=== PATIENT | female | born 1955 | race Caucasian/White ===

== ENCOUNTER 2020-06-28 08:20 | Outpatient (REF) | payer OTHER, SELFPAY ==
[2020-06-28 08:43] LABS: MANUAL DIFF FLAG NO
[2020-06-28 08:47] LABS: Basophils Absolute Auto 0.1 X10*3/uL (0.0-0.2); Eosinophils Absolute Auto 0.2 X10*3/uL (0.0-0.4); Eosinophils Percent Auto 2.2 % (0-4); Hematocrit 35.7 % (37-47); Hemoglobin 11.5 g/dl (12.0-16.0); Imm Gran Abs Auto 0.01 X10*3/uL (0.00-0.03); Imm Gran Pct Auto 0.1 % (0.0-0.4); Lymphocytes Absolute Auto 2.8 X10*3/uL (1.2-4.9); Lymphocytes Percent Auto 38.8 % (20-40); Mean Corpuscular HGB Conc 32.2 g/dl (31.0-35.0); Mean Corpuscular Hemoglobin 31.1 pg (27.0-33.0); Mean Corpuscular Volume 96.5 fL (80-98); Monocytes Absolute Auto 0.5 X10*3/uL (0.1-1.2); Monocytes Percent Auto 6.4 % (2-11); Neutrophils Absolute Auto 3.8 X10*3/uL (2.0-8.3); Neutrophils Percent Auto 51.5 % (45-73); Platelet Count 283 X10*3/uL (160-400); Red Cell Distribution Width 12.2 % (11.0-16.0); White Blood Count 7.3 X10*3/uL (4.8-10.8)
== END 2020-06-28 08:21 | disposition home or self-care (01) ==
LOC: HO.LAB 08:20
PROVIDERS: Referring Provider Psychiatry & Neurology Neurology; Visit Provider Family Medicine
DX: D64.9 Anemia, unspecified (principal)
CPT/HCPCS: 36415; 85025

== ENCOUNTER 2021-03-26 14:45 | Outpatient (REF) | payer OTHER, SELFPAY ==
--- NOTE | ~2021-03-26 | MM_ITS ---
EXAMINATION: MM SCREENING DIGITAL BREAST TOMOSYNTHESIS, BILATERAL CLINICAL INFORMATION: Screening. Asymptomatic. The lifetime risk of breast cancer based on the Tyrer-Cuzick Model is 9%. COMPARISON: Mammography: 03/20/2020, 03/15/2019, 02/18/2018 TECHNIQUE: Digital breast tomosynthesis is performed in both the craniocaudal and mediolateral oblique views along with computer-aided detection (CAD). Synthesized 2D images are generated from the tomosynthesis. Additional left CC and exaggerated left CC views are provided. FINDINGS: The breasts are heterogeneously dense, which may obscure small masses (ACR BI-RADS breast composition Category c). There are no significant masses, abnormal calcifications, or other abnormalities. Parenchymal pattern is similar to prior studies. Again, there is biopsy clip marker posterior 11:00 left breast. There is stable nodular asymmetry superior left breast on MLO view. No developing density. No significant changes. MM/MM tomosynthesis screening BI IMPRESSION: No mammographic evidence of malignancy. ASSESSMENT: BI-RADS 2: Benign RECOMMENDATION: Routine annual mammography screening. This patient's information was entered into a reminder system with a target due date for their next mammogram.
== END 2021-03-26 14:46 | disposition home or self-care (01) ==
LOC: HO.MAMMO 14:45
PROVIDERS: PCP Family Medicine; Visit Provider Family Medicine
DX: Z12.31 Encounter for screening mammogram for malignant neoplasm of breast (principal)
CPT/HCPCS: 77063; 77067

== ENCOUNTER 2021-05-22 16:46 | Outpatient (REF) | payer OTHER, SELFPAY ==
--- NOTE | ~2021-05-22 | XR_ITS ---
EXAMINATION: XR TOES, LEFT CLINICAL INFORMATION: Injury. Pain. History of trauma. COMPARISON: Left foot x-ray January 2018 TECHNIQUE: 3 views of the left toes were obtained. FINDINGS: There is a minimally displaced fracture of the medial aspect of the proximal phalanx of the great toe intra-articular with the IP joint. No other fracture is seen. There is severe arthritis at the first second third metatarsal tarsal joints with joint space narrowing and osteophyte formation. There is mild arthritis at the first MTP joint. Soft tissues are unremarkable. XR/XR toe LT min 2V IMPRESSION: Minimally displaced fracture of the proximal phalanx of the great toe intra-articular with the IP joint.
== END 2021-05-22 16:47 | disposition home or self-care (01) ==
LOC: HO.XRAY 16:46
PROVIDERS: PCP Family Medicine; Visit Provider Family Medicine
DX: S99.922D Unspecified injury of left foot, subsequent encounter (principal)
CPT/HCPCS: 73660

== ENCOUNTER 2022-04-03 11:40 | Outpatient (REF) | payer MEDICARE, SELFPAY ==
--- NOTE | ~2022-04-03 | MM_ITS ---
EXAMINATION: MM SCREENING DIGITAL BREAST TOMOSYNTHESIS, BILATERAL CLINICAL INFORMATION: Screening. Asymptomatic. The lifetime risk of breast cancer based on the Tyrer-Cuzick Model is 8%. COMPARISON: Mammography: 03/26/2021, 03/20/2020, 03/15/2019 TECHNIQUE: Digital breast tomosynthesis is performed in both the craniocaudal and mediolateral oblique views along with computer-aided detection (CAD). Synthesized 2D images are generated from the tomosynthesis. FINDINGS: The breasts are heterogeneously dense, which may obscure small masses (ACR BI-RADS breast composition Category c). There are no significant masses, abnormal calcifications, or other abnormalities. There is a biopsy clip marker again seen posterior central 9:00 left breast. There is no developing density or architectural abnormality. The axilla are unremarkable. No significant changes. MM/MM tomosynthesis screening BI IMPRESSION: No mammographic evidence of malignancy. ASSESSMENT: BI-RADS 1: Negative RECOMMENDATION: Routine annual mammography screening. This patient's information was entered into a reminder system with a target due date for their next mammogram.
== END 2022-04-03 11:41 | disposition home or self-care (01) ==
LOC: HO.MAMMO 11:40
PROVIDERS: Visit Provider Family Medicine
DX: Z12.31 Encounter for screening mammogram for malignant neoplasm of breast (principal)
CPT/HCPCS: 77063; 77067

== ENCOUNTER 2022-04-24 13:24 | Outpatient (REF) | payer MEDICARE, SELFPAY ==
[2022-04-24 14:38] LABS: Alanine Aminotransferase 21 U/L (0-31); Anion Gap 16 (12-20); Blood Urea Nitrogen 22 mg/dL (9-16); Carbon Dioxide 26 mmol/L (22-29); Chloride 104 mmol/L (96-108); Estimated Glomerular Filt Rate > 60; Potassium 4.1 mmol/L (3.3-5.1); Sodium 142 mmol/L (135-145)
[2022-04-24 14:58] LABS: Free T4 (Free Thyroxine) 0.82 ng/dL (0.71-1.85)
== END 2022-04-24 13:25 | disposition home or self-care (01) ==
LOC: HO.LAB 13:24
PROVIDERS: PCP Family Medicine; Visit Provider Family Medicine
DX: R00.0 Tachycardia, unspecified (principal); E78.00 Pure hypercholesterolemia, unspecified; Z79.899 Other long term (current) drug therapy
CPT/HCPCS: 36415; 80051; 82550; 82565; 84439; 84460; 84520

== ENCOUNTER → 2022-09-10 09:49 | Outpatient (BNVA) | payer MEDICARE, SELFPAY | PROVIDERS: PCP Family Medicine; Referring Provider Family Medicine; Visit Provider Surgery | DX: L81.9 Disorder of pigmentation, unspecified (principal) | CPT/HCPCS: 99202 ==

== ENCOUNTER 2022-10-06 12:51 | Outpatient (REF) | payer MEDICARE, SELFPAY | END 2022-10-06 12:52 | disposition home or self-care (01) | LOC: HO.LNP 12:51 | PROVIDERS: PCP Family Medicine; Visit Provider Surgery | DX: L82.1 Other seborrheic keratosis (principal); L81.9 Disorder of pigmentation, unspecified | CPT/HCPCS: 11421; 11422; 88304 ==

== ENCOUNTER → 2022-10-16 10:49 | Outpatient (BNVA) | payer MEDICARE, SELFPAY | PROVIDERS: PCP Family Medicine; Visit Provider Surgery ==

== ENCOUNTER 2022-10-30 11:00 | Outpatient (REF) | payer MEDICARE, SELFPAY ==
[2022-10-30 11:19] LABS: MANUAL DIFF FLAG NO
[2022-10-30 12:10] LABS: Basophils Absolute Auto 0.1 X10*3/uL (0.0-0.2); Basophils Percent Auto 0.9 % (0-2); Eosinophils Absolute Auto 0.1 X10*3/uL (0.0-0.4); Eosinophils Percent Auto 2.4 % (0-4); Hematocrit 37.3 % (37.0-47.0); Hemoglobin 12.4 g/dl (12.0-16.0); Imm Gran Abs Auto 0.01 X10*3/uL (0.00-0.03); Imm Gran Pct Auto 0.2 % (0.0-0.4); Lymphocytes Absolute Auto 2.1 X10*3/uL (1.2-4.9); Lymphocytes Percent Auto 39.5 % (20-40); Mean Corpuscular HGB Conc 33.2 g/dl (31.0-35.0); Mean Corpuscular Hemoglobin 31.1 pg (27.0-33.0); Mean Corpuscular Volume 93.5 fL (80.0-98.0); Mean Platelet Volume 9.9 fL (9.4-12.3); Monocytes Absolute Auto 0.5 X10*3/uL (0.1-1.2); Monocytes Percent Auto 9.3 % (2-11); Neutrophils Absolute Auto 2.6 x10*3/uL (2.0-8.3); Neutrophils Percent Auto 47.7 % (45-73); Platelet Count 248 X10*3/uL (160-400); Red Blood Count 3.99 X10*6/uL (4.20-5.50); Red Cell Distribution Width 11.6 % (11.0-16.0); White Blood Count 5.4 X10*3/uL (4.8-10.8)
[2022-10-30 13:00] LABS: Alanine Aminotransferase 19 U/L (0-31); Albumin Level 3.9 g/dL (3.5-5.0); Alkaline Phosphatase 48 U/L (39-117); Aspartate Amino Transferase 22 U/L (5-31); Bilirubin Direct < 0.2 mg/dL (0.0-0.5); Bilirubin Total 0.3 mg/dL (0.0-1.0); Total Protein 6.4 g/dL (6.5-8.0)
== END 2022-10-30 11:01 | disposition home or self-care (01) ==
LOC: HO.LAB 11:00
PROVIDERS: Internal Medicine; PCP Family Medicine; Visit Provider Psychiatry & Neurology Neurology
DX: R51.9 Headache, unspecified (principal)
CPT/HCPCS: 36415; 80076; 85025

== ENCOUNTER 2022-11-04 13:04 | Outpatient (REF) | payer MEDICARE, SELFPAY ==
[2022-11-04 14:08] LABS: Alanine Aminotransferase 21 U/L (0-31); Anion Gap 12 (12-20); Aspartate Amino Transferase 23 U/L (5-31); Blood Urea Nitrogen 13 mg/dL (9-16); Carbon Dioxide 28 mmol/L (22-29); Chloride 107 mmol/L (96-108); Estimated Glomerular Filt Rate > 60; Sodium 143 mmol/L (135-145)
== END 2022-11-04 13:05 | disposition home or self-care (01) ==
LOC: HO.LAB 13:04
PROVIDERS: PCP Family Medicine; Visit Provider Family Medicine
DX: I10 Essential (primary) hypertension (principal); E78.00 Pure hypercholesterolemia, unspecified; Z79.899 Other long term (current) drug therapy
CPT/HCPCS: 36415; 80051; 82550; 82565; 84450; 84460; 84520

== ENCOUNTER 2023-04-06 08:17 | Outpatient (REF) | payer MEDICARE, SELFPAY ==
--- NOTE | ~2023-04-06 | MM_ITS ---
EXAMINATION: MM SCREENING DIGITAL BREAST TOMOSYNTHESIS, BILATERAL CLINICAL INFORMATION: Screening. Asymptomatic. History of remote excisional left biopsy. COMPARISON: Mammography: 04/03/2022, 03/26/2021, 03/20/2020, 03/15/2019 TECHNIQUE: Digital breast tomosynthesis is performed in both the craniocaudal and mediolateral oblique views along with computer-aided detection (CAD). Synthesized 2D images are generated from the tomosynthesis. FINDINGS: The breasts are heterogeneously dense, which may obscure small masses (ACR BI-RADS breast composition Category c). Post benign biopsy clip noted in the medial posterior left breast. There are no suspicious masses, suspicious grouped calcifications, or areas of architectural distortion. The parenchymal pattern is stable from prior exams. MM/MM tomosynthesis screening BI IMPRESSION: No mammographic evidence of malignancy. ASSESSMENT: BI-RADS BI-RADS 1 - Negative RECOMMENDATION: Routine annual mammography screening. 1 year F/U This examination should not preclude the clinical evaluation of a suspicious palpable abnormality. This patient's information was entered into a reminder system with a target due date for their next mammogram.
== END 2023-04-06 08:18 | disposition home or self-care (01) ==
LOC: HO.MAMMO 08:17
PROVIDERS: PCP Family Medicine; Visit Provider Family Medicine
DX: Z12.31 Encounter for screening mammogram for malignant neoplasm of breast (principal)
CPT/HCPCS: 77063; 77067

== ENCOUNTER → 2023-04-06 08:30 | Outpatient (BNV) | payer MEDICARE, SELFPAY | PROVIDERS: PCP Family Medicine; Visit Provider Radiology Diagnostic Radiology | DX: Z12.31 Encounter for screening mammogram for malignant neoplasm of breast (principal) | CPT/HCPCS: 77063; 77067 ==

== ENCOUNTER 2023-09-27 09:32 | Outpatient (REF) | payer MEDICARE, SELFPAY ==
[2023-09-27 10:46] LABS: Alanine Aminotransferase 22 U/L (0-31); Anion Gap 12 (12-20); Aspartate Amino Transferase 26 U/L (5-31); Blood Urea Nitrogen 19 mg/dL (9-16); Carbon Dioxide 27 mmol/L (22-29); Chloride 106 mmol/L (96-108); Cholesterol 187 mg/dL (<200); Estimated Glomerular Filt Rate > 60; Potassium 4.1 mmol/L (3.3-5.1); Sodium 141 mmol/L (135-145)
== END 2023-09-27 09:33 | disposition home or self-care (01) ==
LOC: HO.LAB 09:32
PROVIDERS: PCP Family Medicine; Visit Provider Family Medicine
DX: I10 Essential (primary) hypertension (principal); E78.00 Pure hypercholesterolemia, unspecified; Z79.899 Other long term (current) drug therapy
CPT/HCPCS: 36415; 80051; 82465; 82550; 82565; 84450; 84460; 84520

== ENCOUNTER 2024-04-04 11:14 | Outpatient (REF) | payer MEDICARE, SELFPAY ==
[2024-04-04 14:02] LABS: Valproate 44.7 mcg/mL (50.0-100.0)
== END 2024-04-04 11:15 | disposition home or self-care (01) ==
LOC: HO.HMGCLDS 11:14
PROVIDERS: PCP Family Medicine; Visit Provider Family Medicine
DX: Z79.899 Other long term (current) drug therapy (principal)
CPT/HCPCS: 36415; 80164

== ENCOUNTER 2024-04-11 08:33 | Outpatient (REF) | payer MEDICARE, SELFPAY ==
--- NOTE | ~2024-04-11 | MM_ITS ---
EXAMINATION: MM SCREENING DIGITAL BREAST TOMOSYNTHESIS, BILATERAL CLINICAL INFORMATION: Screening. Asymptomatic. COMPARISON: Mammography: Comparison is made with available priors TECHNIQUE: Digital breast mammography with tomosynthesis is performed in both the craniocaudal and mediolateral oblique views along with computer-aided detection (CAD). FINDINGS: The breasts are heterogeneously dense, which may obscure small masses (ACR BI-RADS breast composition Category c). Left marker clip. There are no significant masses, abnormal calcifications, or other abnormalities. MM/MM tomosynthesis screening BI IMPRESSION: No mammographic evidence of malignancy. ASSESSMENT: BI-RADS BI-RADS 2 - Benign Findings RECOMMENDATION: Routine annual mammography screening. 1 year F/U This examination should not preclude the clinical evaluation of a suspicious palpable abnormality. This patient's information was entered into a reminder system with a target due date for their next mammogram. Electronically signed by: Angella Peralta DO 04/25/2024 09:21 AM EDT
== END 2024-04-11 08:34 | disposition home or self-care (01) ==
LOC: HO.MAMMO 08:33
PROVIDERS: PCP Family Medicine; Visit Provider Family Medicine
DX: Z12.31 Encounter for screening mammogram for malignant neoplasm of breast (principal)
CPT/HCPCS: 77063; 77067

== ENCOUNTER → 2024-04-11 08:45 | Outpatient (BNV) | payer MEDICARE, SELFPAY | PROVIDERS: PCP Family Medicine; Visit Provider Internal Medicine | DX: Z12.31 Encounter for screening mammogram for malignant neoplasm of breast (principal) | CPT/HCPCS: 77063; 77067 ==

== ENCOUNTER 2024-05-09 11:14 | Outpatient (REF) | payer MEDICARE, SELFPAY ==
[2024-05-09 13:20] LABS: MANUAL DIFF FLAG NO
[2024-05-09 13:46] LABS: Alanine Aminotransferase 17 U/L (0-31); Anion Gap 11 (12-20); Aspartate Amino Transferase 22 U/L (5-31); Blood Urea Nitrogen 14 mg/dL (9-16); Carbon Dioxide 29 mmol/L (22-29); Chloride 106 mmol/L (96-108); Estimated Glomerular Filt Rate > 60; Potassium 4.1 mmol/L (3.3-5.1); Sodium 142 mmol/L (135-145)
[2024-05-09 13:51] LABS: Basophils Absolute Auto 0.1 X10*3/uL (0.0-0.2); Basophils Percent Auto 0.9 % (0-2); Eosinophils Absolute Auto 0.1 X10*3/uL (0.0-0.4); Eosinophils Percent Auto 2.2 % (0-4); Hematocrit 35.7 % (37.0-47.0); Imm Gran Abs Auto 0.03 X10*3/uL (0.00-0.03); Imm Gran Pct Auto 0.6 % (0.0-0.4); Lymphocytes Absolute Auto 1.8 X10*3/uL (1.2-4.9); Lymphocytes Percent Auto 33.7 % (20-40); Mean Corpuscular HGB Conc 33.6 g/dl (31.0-35.0); Mean Corpuscular Volume 95.2 fL (80.0-98.0); Monocytes Absolute Auto 0.6 X10*3/uL (0.1-1.2); Monocytes Percent Auto 11.3 % (2-11); Neutrophils Absolute Auto 2.8 x10*3/uL (2.0-8.3); Neutrophils Percent Auto 51.3 % (45-73); Platelet Count 229 X10*3/uL (160-400); Red Blood Count 3.75 X10*6/uL (4.20-5.50); Red Cell Distribution Width 12.2 % (11.0-16.0); White Blood Count 5.4 X10*3/uL (4.8-10.8)
== END 2024-05-09 11:15 | disposition home or self-care (01) ==
LOC: HO.10HDL 11:14
PROVIDERS: Visit Provider Family Medicine
DX: E78.00 Pure hypercholesterolemia, unspecified (principal); I10 Essential (primary) hypertension; R00.0 Tachycardia, unspecified; Z79.899 Other long term (current) drug therapy
CPT/HCPCS: 36415; 80051; 82550; 82565; 84450; 84460; 84520; 85025

== ENCOUNTER 2024-08-19 13:59 | Emergency (ER) | payer MEDICARE, SELFPAY ==
--- NOTE | ~2024-08-19 | CT_ITS ---
CLINICAL HISTORY: bilateral flank pain, microscopic hematuria CT abdomen and pelvis without contrast Comparison: US - PELVIS ULTRASOUND [id number] - 08/30/18 16:24 EST Findings: Minimal right basilar subsegmental atelectasis present with minimal to mild left basilar subsegmental atelectasis versus infiltrates. The gallbladder and solid organs are within normal limits. Nonobstructing calculus present at the superior pole of the right kidney. No radiopaque left renal calculi are identified. No hydronephrosis or hydroureter. No bowel obstruction, pneumoperitoneum, or pneumatosis. Large stool burden identified at the ascending and transverse portions of the colon. Pelvic contents unremarkable. Bladder is minimally distended with fluid, limiting its evaluation. Normal appendix. Mild T10 compression deformity present. IMPRESSION: 1. No acute inflammatory process identified within the abdomen or pelvis. 2. Nonobstructing calculus present at the right kidney. No hydronephrosis or hydroureter. 3. Large stool burden present at the ascending and transverse portions of the colon. No bowel obstruction. 4. Mild T10 compression deformity present. This may be chronic in etiology based on its appearance, however clinical correlation is advised given the lack of comparison imaging. This document has been electronically signed by: Rizwan Oropeza MD on 08/19/2024 21:19:56
[2024-08-19 14:08] VITALS: BP 121/53; PULSE 99; RESP 19; TEMP 36.6; O2SAT 99; BMI 21.0
--- NOTE | 2024-08-19 15:32 | ED_ITS ---
HPI - Back Pain/Injury General Chief Complaint: Back Pain/Injury Stated Complaint: back pain Time Seen by Provider: 08/19/24 15:19 Source: patient Mode of arrival: ambulatory Limitations: no limitations History of Present Illness ED Provider: Araseli Crespo NP HPI Narrative: Patient is a 69-year-old female who presents emergency department for evaluation. She reports 3 days ago she was walking up the stairs when she felt sudden onset of pain to the bilateral flanks radiating into the abdomen. She reports the pain has been quite constant since its onset with not much varying in its intensity. Pain is exacerbated with particular movements and while side- lying. Denies recent precipitating injury, fevers, chills, burning with micturition, urinary frequency/urgency/hesitancy, bladder or bowel dysfunction, numbness or tingling of the perineum or bilateral legs. Denies any recent surgical procedures, any known immune compromising conditions, personal history of cancer, or IV drug usage. MD elicited complaint: back pain Related Data Home Medications ?Medication ?Instructions ?Recorded ?Confirmed amitriptyline 100 mg tablet 100 mg PO BEDTIME 09/10/22 10/06/22 atorvastatin 40 mg tablet 40 mg PO BEDTIME 09/10/22 10/06/22 divalproex 500 mg tablet,delayed 500 mg PO BEDTIME 09/10/22 10/06/22 release metoprolol succinate 25 mg 25 mg PO BEDTIME 09/10/22 10/06/22 tablet,extended release 24 hr Previous Rx's ?Medication ?Instructions ?Recorded meloxicam 15 mg tablet 15 mg PO DAILY #7 tabs 08/19/24 Allergies Allergy/AdvReac Type Severity Reaction Status Date / Time No Known Allergies Allergy Verified 08/19/24 14:09 [No Known Allergies*] Review of Systems 2 Review of Systems: Yes all other systems are reviewed and are negative PMFSH Past Medical History Attestation statement: The following information was validated with the patient. Source: old records reviewed Medical History History of inguinal hernia Surgical History History of breast lump/mass excision (10/06/22) History of repair of right rotator cuff (2003) History of breast biopsy (2005) History of section (1989) Family History Family History Father Non-Hodgkin lymphoma Social History Social History Alcohol intake: never Patient Tobacco Use Status: Never used Tobacco Advance Directives: No Advance Directives Information Provided: Yes Do you have a plan to hurt others: No Plan Physical Exam 2 Vital Signs: Vital Signs: Last Vital Signs Temp 97.8 F 08/19/24 19:57 Pulse 86 08/19/24 19:57 Resp 19 08/19/24 19:57 BP 124/62 08/19/24 19:57 Pulse Ox 99 08/19/24 19:57 O2 Del Method Room Air 08/19/24 19:57 BMI result Body Mass Index 21.0 Appearance: Alert.?Oriented to person, place and time. No acute distress.?Normal affect. Eyes: Pupils equal, round and reactive to light.? ENT: Pharynx normal.?? Neck: Normal inspection.? Neck supple.?? CVS: Heart sounds normal. Normal heart rate and rhythm.? Pulses normal; bilateral radial pulses 2+, bilateral posterior tibial/dorsalis pedis pulses 2+.? Respiratory: No respiratory distress.? Lung sounds clear to auscultation bilaterally?? Abdomen: Soft and non-tender. Normoactive bowel sounds. Skin: Skin warm and dry.? Normal skin color.? Normal skin turgor.?? Extremities: No lower extremity edema.? No calf ttp? Back: + motor paraspinal muscular tenderness from lower thoracic to upper lumbar region. No CVA tenderness. No midline spinal tenderness, step-off's, or deformity. Full ROM intact in bilateral lower extremities. Straight leg test positive on right; Straight leg test positive on left. No rashes, lesions, areas of induration or fluctuance, or signs of infection noted., Neuro: Moves all extremities spontaneously. 5/5 strength in hip extension/flexion, abduction, adduction. Sensation to light touch intact bilaterally. Patellar and Achilles reflex 2+ bilaterally. No ataxia, gait normal and steady.. No focal neuro deficits. Course Reevaluation(s) Reevaluation #1: She endorses having minimal improvement from cyclobenzaprine and ibuprofen. On evaluation her urinalysis shows evidence of microscopic hematuria as well as calcium oxalate crystals concerning for nephrolithiasis/ureteral calculi as etiology for pain. No sign of infection in the urine. CBC is without leukocytosis, has a mild normocytic anemia that does not meet transfusion criteria, no thrombocytopenia. No electrolyte derangement. No ASHLEY. LFTs within normal range. Obtaining CT of the abdomen and pelvis for further evaluation/exclude obstructive ureteral pathology Time: 17:43 Reevaluation #2: Patient signed out to Viki DAUGHERTY pending radiologist impression of CT and re- evaluation/disposition Time: 18:53 Reevaluation #3: Caitlin Borrego PA-C have accepted care of the patient and signed out pending imaging And final disposition. CT abdomen and pelvis:Minimal right basilar subsegmental atelectasis present with minimal to mild left basilar subsegmental atelectasis versus infiltrates. The gallbladder and solid organs are within normal limits. Nonobstructing calculus present at the superior pole of the right kidney. No radiopaque left renal calculi are identified. No hydronephrosis or hydroureter. No bowel obstruction, pneumoperitoneum, or pneumatosis. Large stool burden identified at the ascending and transverse portions of the colon. Pelvic contents unremarkable. Bladder is minimally distended with fluid, limiting its evaluation. Normal appendix. Mild T10 compression deformity present. IMPRESSION: 1. No acute inflammatory process identified within the abdomen or pelvis. 2. Nonobstructing calculus present at the right kidney. No hydronephrosis or hydroureter. 3. Large stool burden present at the ascending and transverse portions of the colon. No bowel obstruction. 4. Mild T10 compression deformity present. This may be chronic in etiology based on its appearance, however clinical correlation is advised given the lack of comparison imaging. This document has been electronically signed by: Rizwan Oropeza MD on 08/19/2024 21:19:56 Medications Administered Discontinued Medications Generic Name Dose Route Start Last Admin Trade Name Freq PRN Reason Stop Dose Admin Cyclobenzaprine HCl 5 mg 08/19/24 15:58 08/19/24 16:29 Cyclobenzaprine Hcl 5 Mg Tablet PO 08/19/24 15:59 5 mg ONCE ONE Administration Ibuprofen 600 mg 08/19/24 15:58 08/19/24 16:29 Ibuprofen 600 Mg Tablet PO 08/19/24 15:59 600 mg ONCE ONE Administration Medical Decision Making Medical Decision Making [facility] Narrative: Patient is a 69-year-old female with past medical a of hyperlipidemia, migraine headaches, tachycardia presents emergency department for evaluation of back pain radiating to her abdomen of sudden onset 3 days ago as per HPI. On evaluation she does have notable tenderness diffusely through the paraspinal muscle region in the lower thoracic to upper lumbar region with positive bilateral straight leg test. I suspect that Pain is most consistent with muscular pain, although cannot completely exclude herniated disc. On neurological exam there are no deficits. Atraumatic in nature, no acute bony tenderness, unlikely to be spinal fracture. Exam findings not consistent with cauda equina syndrome. No recent fevers, unintentional weight loss, history of IVDA, high-risk past medical history, immunosuppression, recent surgery or lumbar puncture to suggest spinal infection, epidural abscess, malignancy. Not consistent with AAA or dissection. No genitourinary symptoms, afebrile, no CVA tenderness, lower suspicion of urinary tract infection, pyelonephritis, renal colic. No history of nephrolithiasis/ureteral calculi. Will obtain urinalysis for further evaluation Differential Diagnosis Differential Diagnoses: The differential diagnosis associated with the presentation includes ( see narrative above) Admission/Observation Consideration of admission/observation: Escalation of care including admission/observation considered ( see narrative above) Lab Data [facility] Lab Attestation statement: I reviewed the patient's lab results. 08/19/24 16:06 08/19/24 16:06 Labs: Lab Results 08/19/24 08/19/24 Range/Units 16:06 17:13 WBC 9.1 (4.8-10.8) X10*3/uL RBC 3.73 L (4.20-5.50) X10*6/uL Hgb 11.8 L (12.0-16.0) g/dl Hct 35.3 L (37.0-47.0) % MCV 94.6 (80.0-98.0) fL MCH 31.6 (27.0-33.0) pg MCHC 33.4 (31.0-35.0) g/dl RDW 12.0 (11.0-16.0) % Plt Count 216 (160-400) X10*3/uL MPV 9.1 L (9.4-12.3) fL Immature Gran % (Auto) 0.4 (0.0-0.4) % Neut % (Auto) 65.2 (45-73) % Lymph % (Auto) 22.2 (20-40) % Lassen % (Auto) 10.9 (2-11) % Eos % (Auto) 0.7 (0-4) % Baso % (Auto) 0.6 (0-2) % Lymph # (Auto) 2.0 (1.2-4.9) X10*3/uL [place]assen # (Auto) 1.0 (0.1-1.2) X10*3/uL Eos # (Auto) 0.1 (0.0-0.4) X10*3/uL Baso # (Auto) 0.1 (0.0-0.2) X10*3/uL Abs Immat Gran (auto) 0.04 H (0.00-0.03) X10*3/uL Absolute Neuts (auto) 5.9 (2.0-8.3) x10*3/uL Absolute Nucleated RBC 0.000 (0.0-0.012) X10*3/uL Nucleated RBC % (auto) 0.0 (0.0-0.2) /100WBC Sodium 138 (135-145) mmol/L Potassium 4.8 (3.3-5.1) mmol/L Chloride 104 (96-108) mmol/L Carbon Dioxide 24 (22-29) mmol/L Anion Gap 15 (12-20) BUN 24 H (9-16) mg/dL Creatinine 0.73 (0.5-1.4) mg/dL Estim Creat Clear Calc 58.3 Estimated GFR > 60 Random Glucose 103 (60-115) mg/dL Calcium 9.5 (8.4-10.2) mg/dL Total Bilirubin 0.4 (0.0-1.0) mg/dL AST 27 (5-31) U/L ALT 25 (0-31) U/L Alkaline Phosphatase 43 (39-117) U/L Total Protein 7.7 (6.5-8.0) g/dL Albumin 3.9 (3.5-5.0) g/dL Lipase 37 (8-78) U/L Urine Color Yellow Urine Appearance Clear Urine pH 5.5 (5.0-9.0) Ur Specific [place] >= 1.030 H (1.005-1.025) Urine Protein Trace (Neg-Trace) mg/dL Urine Glucose (UA) Negative (Negative) mg/dL Urine Ketones Trace (Negative) mg/dL Urine Blood Small (1+) H (Negative) Urine Nitrite Negative (Negative) Ur Leukocyte Esterase Negative (Negative) Urine RBC 6-10 H (0-2) /HPF Urine WBC 0-5 (0-5) /HPF Ur Squamous Epith Cells 0-2 (0-2) /HPF Calcium Oxalate Crystal Present Urine Bacteria None Seen (None Seen) Hyaline Casts 3-5 (0-2) /LPF Independent Historian Clinical information obtained from an independent historian. History obtained from or confirmed by: Spouse External Record Review External record reviewed: Outpatient record Prescription Management I considered prescription management with: Pain Medication Discharge Plan Discharge Clinical Impression: Constipation, Thoracic back pain Patient Disposition: Home, Self-Care Instructions: Constipation (ED), Thoracic Pain (ED) Additional Instructions: The CT scan revealed arthritic changes in your back and that you are constipated. See home care instructions. For your back pain, take the meloxicam as directed, you can also use [id number] Tylenol 1000 mg taken every 8 hours for your pain. In regard to the constipation, you need to use [id number] Colace, this is a stool softener, twice a day. In addition you should use [id number] MiraLax 2 to 3 times a day, until you begin having multiple large volume bowel movements. Once you clear this current stool burden, use the stool softener daily with the MiraLax daily. This should help to prevent recurrence of your constipation. Follow up with your primary care provider as needed. Prescriptions: New meloxicam 15 mg tablet 15 mg PO DAILY Qty: 7 0RF No Action metoprolol succinate 25 mg tablet extended release 24 hr 25 mg PO BEDTIME amitriptyline 100 mg tablet 100 mg PO BEDTIME atorvastatin 40 mg tablet 40 mg PO BEDTIME divalproex 500 mg tablet,delayed release (DR/EC) 500 mg PO BEDTIME Print Language: Somali
[2024-08-19 16:10] LABS: MANUAL DIFF FLAG NO
[2024-08-19 16:12] LABS: Basophils Absolute Auto 0.1 X10*3/uL (0.0-0.2); Basophils Percent Auto 0.6 % (0-2); Eosinophils Absolute Auto 0.1 X10*3/uL (0.0-0.4); Eosinophils Percent Auto 0.7 % (0-4); Hematocrit 35.3 % (37.0-47.0); Hemoglobin 11.8 g/dl (12.0-16.0); Imm Gran Abs Auto 0.04 X10*3/uL (0.00-0.03); Imm Gran Pct Auto 0.4 % (0.0-0.4); Lymphocytes Percent Auto 22.2 % (20-40); Mean Corpuscular HGB Conc 33.4 g/dl (31.0-35.0); Mean Corpuscular Hemoglobin 31.6 pg (27.0-33.0); Mean Corpuscular Volume 94.6 fL (80.0-98.0); Mean Platelet Volume 9.1 fL (9.4-12.3); Monocytes Percent Auto 10.9 % (2-11); Neutrophils Absolute Auto 5.9 x10*3/uL (2.0-8.3); Neutrophils Percent Auto 65.2 % (45-73); Platelet Count 216 X10*3/uL (160-400); Red Blood Count 3.73 X10*6/uL (4.20-5.50); White Blood Count 9.1 X10*3/uL (4.8-10.8)
[2024-08-19] MEDS: Ibuprofen 600 MG TABLET PO (16:29)
[2024-08-19] MEDS: Cyclobenzaprine HCl 5 MG TABLET PO (16:29)
[2024-08-19 16:38] LABS: Alanine Aminotransferase 25 U/L (0-31); Albumin Level 3.9 g/dL (3.5-5.0); Alkaline Phosphatase 43 U/L (39-117); Anion Gap 15 (12-20); Aspartate Amino Transferase 27 U/L (5-31); Bilirubin Total 0.4 mg/dL (0.0-1.0); Blood Urea Nitrogen 24 mg/dL (9-16); Calcium 9.5 mg/dL (8.4-10.2); Carbon Dioxide 24 mmol/L (22-29); Chloride 104 mmol/L (96-108); Creatinine Clr Calc Pharmacy 58.3; Estimated Glomerular Filt Rate > 60; Glucose Random 103 mg/dL (60-115); Lipase 37 U/L (8-78); Potassium 4.8 mmol/L (3.3-5.1); Sodium 138 mmol/L (135-145); Total Protein 7.7 g/dL (6.5-8.0)
[2024-08-19 17:23] LABS: Appearance Urine Clear; Color Urine Yellow; Glucose Urine UA Negative (Negative); Leukocyte Esterase Urine Negative (Negative); Nitrite Urine Negative (Negative); PH 5.5 (5.0-9.0); Specific Gravity - Urine >= 1.030 (1.005-1.025); UMIC TRIGGER UACC YES; Urine Blood Small (1+) (Negative); Urine Ketones Trace mg/dL (Negative); Urine Protein Trace mg/dL (Neg-Trace)
[2024-08-19 17:36] LABS: Bacteria Urine None Seen (None Seen); Calcium Oxalate Crystals Urine Present; Squamous Epithelial Cell Urine 0-2 /HPF (0-2); WBC Urine 0-5 /HPF (0-5)
[2024-08-19 19:32] VITALS: BP 124/62; PULSE 86; RESP 19; TEMP 36.6; O2SAT 99
[2024-08-19 19:57] VITALS: BP 124/62; PULSE 86; RESP 19; TEMP 36.6; O2SAT 99
[2024-08-19 22:03] VITALS: BP 123/66; PULSE 109; RESP 20; TEMP 36.8; O2SAT 99
[2024-08-19 22:04] VITALS: BP 123/66; PULSE 109; RESP 20; TEMP 36.8; O2SAT 99
== END 2024-08-19 22:04 | disposition home or self-care (01) ==
PROVIDERS: Nurse Practitioner Family; Emergency Provider Emergency Medicine; PCP Family Medicine
DX: K59.00 Constipation, unspecified (principal); M54.6 Pain in thoracic spine
CPT/HCPCS: 36415; 74176; 80053; 81001; 83690; 85025; 99283; 99284

== ENCOUNTER → 2024-08-19 17:41 | Outpatient (BNV) | payer MEDICARE, SELFPAY | PROVIDERS: Emergency Provider Emergency Medicine; PCP Family Medicine; Visit Provider Radiology Diagnostic Radiology | DX: N20.0 Calculus of kidney (principal); K56.41 Fecal impaction | CPT/HCPCS: 74176 ==

== ENCOUNTER 2024-09-12 14:13 | Emergency (ER) | payer MEDICARE, SELFPAY ==
--- NOTE | ~2024-09-12 | XR_ITS ---
EXAMINATION: XR LUMBOSACRAL SPINE CLINICAL INFORMATION: back pain COMPARISON: None. Correlation made with CT abdomen pelvis 08/19/2024. TECHNIQUE: Three views of the lumbosacral spine. FINDINGS: Mild right convex thoracolumbar scoliosis. Mildly exaggerated lordosis. Normal alignment. No fracture, gross compression deformity, or suspicious bone lesion. Minimal superior endplate concavities of L2 and L3, appear chronic. Disc spaces demonstrate minimal narrowing diffusely. Facets are normally aligned. There are degenerative facet changes most notable L4-S1. No paravertebral soft tissue abnormalities. Gaseous distention of the colon with associated constipation. XR/XR lumbar spine 2-3V IMPRESSION: 1. No acute findings of the lumbar spine. 2. Mild right thoracolumbar scoliosis, and mild degenerative spondylosis. 3. Gaseous distention of the colon with constipation, partially imaged. Electronically signed by: Alton Goode MD 09/12/2024 04:14 PM [facility]
[2024-09-12 15:08] VITALS: BP 149/79; PULSE 102; RESP 18; TEMP 36.1; O2SAT 99; BMI 21.7
--- NOTE | 2024-09-12 15:43 | ED_ITS ---
HPI - General Adult General Chief complaint: Back Pain/Injury Stated complaint: Lower back pain Time Seen by Provider: 09/13/24 02:23 Source: patient Mode of arrival: EMS Limitations: no limitations History of Present Illness ED Provider: HPI narrative: Patient's history of chronic back pain osteoarthritis hypertension hyperlipidemia comes here for low back pain for last 3 days no history of injury no radiation of the pain down either extremities no urinary retention or bowel incontinence denies any significant weakness in lower extremities Related Data Home Medications ?Medication ?Instructions ?Recorded ?Confirmed amitriptyline 100 mg tablet 100 mg PO BEDTIME 09/10/22 09/14/24 atorvastatin 40 mg tablet 40 mg PO BEDTIME 09/10/22 09/14/24 divalproex 500 mg tablet,delayed 500 mg PO BEDTIME 09/10/22 09/14/24 release metoprolol succinate 25 mg 25 mg PO BEDTIME 09/10/22 09/14/24 tablet,extended release 24 hr galcanezumab-gnlm 120 mg/mL 120 mg subcut QMONTH 09/14/24 09/14/24 subcutaneous syringe (Emgality) sumatriptan succinate 100 mg tablet 100 mg PO DAILY PRN Migraine 09/14/24 Headache Previous Rx's ?Medication ?Instructions ?Recorded lidocaine 4 % topical patch 1 patch topical DAILY PRN pain #15 09/13/24 ea Allergies Allergy/AdvReac Type Severity Reaction Status Date / Time No Known Allergies Allergy Verified 09/14/24 17:04 [No Known Allergies*] Review of Systems Review of Systems: Yes all other systems are reviewed and are negative PMFSH Past Medical History Medical History History of inguinal hernia Surgical History History of breast lump/mass excision (10/06/22) History of repair of right rotator cuff (2003) History of breast biopsy (2005) History of section (1989) Family History Family History Father Non-Hodgkin lymphoma Social History Social History Unable to assess alcohol history related to: Unknown Alcohol intake: never Patient Tobacco Use Status: Never used Tobacco Physical Exam ED Vital Signs: Vital Signs - 24 hr 09/12/24 15:08 09/12/24 19:59 09/12/24 21:25 Temperature 96.9 F 98.8 F 98.6 F Pulse Rate 102 H 100 100 Respiratory Rate 18 16 19 Blood Pressure 149/79 H 115/80 126/74 Pulse Oximetry 99 96 100 Oxygen Delivery Method Room Air Room Air 09/13/24 03:38 09/13/24 03:40 Temperature 97.7 F 97.7 F Pulse Rate 100 100 Respiratory Rate 12 Blood Pressure 129/67 129/67 Pulse Oximetry 100 100 Oxygen Delivery Method Room Air Room Air BMI result Body Mass Index 21.7 Appearance: Alert. Oriented X3. No acute distress. Eyes: PERRLA, No Nystagmus ENT: Pharynx normal. Oral Mucosa moist Neck: Normal inspection. Neck supple. CVS: Normal heart rate and rhythm. Pulses normal. Respiratory: No respiratory distress. Equal air entry bilateral, no wheezing/rales/rhonchi Abdomen: Soft and nontender. Bowel sounds are present, no mass palpable, no CVA tenderness Skin: Skin warm and dry. Normal skin color. Normal skin turgor. Extremities: No lower extremity edema. No calf tenderness back; diffuse lumbar spinal tenderness no focal tenderness SLR negative bilateral Neuro: Oriented X 3. No motor deficit. No sensory deficit.No cerebellar signs , cranial nerves II-XII intact Course Course Course Narrative: RME: 69 yold female presents to ED for low back pain for the past 3 days. Patient denies any trauma. Patient states constipation resolved denies any abdominal pain, nausea, vomiting, or urinary symptoms. Medications Administered Discontinued Medications Generic Name Dose Route Start Last Admin Trade Name Freq PRN Reason Stop Dose Admin Acetaminophen 650 mg 09/12/24 21:25 09/12/24 21:27 Acetaminophen 325 Mg Tablet PO 09/12/24 21:26 650 mg ONCE ONE Administration Lidocaine 1 patch 09/13/24 02:50 09/13/24 03:05 Lidocaine 4 % Patch Adh..Patch TRANSDERMA 09/13/24 02:51 1 patch ONCE ONE Administration Protocol Oxycodone HCl 5 mg 09/13/24 02:50 09/13/24 03:05 Oxycodone Hcl Immed Release 5 Mg Tablet PO 09/13/24 02:51 5 mg ONCE ONE Administration Medical Decision Making Medical Decision Making [facility] Narrative: Patient with chronic low back pain will prescribe oxycodone advised to follow up as outpatient patient does not want to go to rehab at this time Differential Diagnosis Differential Diagnoses: The differential diagnosis associated with the presentation includes Currently low back pain/compression fracture Radiology Impression Discussion of test interpretation with radiology: I have reviewed the radiologist's reading. Radiologist Impression: XR/XR lumbar spine 2-3V IMPRESSION: 1. No acute findings of the lumbar spine. 2. Mild right thoracolumbar scoliosis, and mild degenerative spondylosis. 3. Gaseous distention of the colon with constipation, partially imaged. Electronically signed by: Alton Goode MD 09/12/2024 04:14 PM [facility] [place] Plan Discharge Clinical Impression: Strain of lumbar region Patient Disposition: Home, Self-Care Instructions: Low Back Strain (ED) Additional Instructions: Rest take pain medication as prescribed Apply Lidoderm patch daily Follow with your PCP Prescriptions: New lidocaine 4 % adhesive patch,medicated 1 patch topical DAILY PRN (Reason: pain) Qty: 15 0RF No Action sumatriptan succinate 100 mg tablet 100 mg PO DAILY PRN (Reason: Migraine Headache) Emgality Syringe 120 mg/mL syringe 120 mg SUBCUT QMONTH metoprolol succinate 25 mg tablet extended release 24 hr 25 mg PO BEDTIME amitriptyline 100 mg tablet 100 mg PO BEDTIME atorvastatin 40 mg tablet 40 mg PO BEDTIME divalproex 500 mg tablet,delayed release (DR/EC) 500 mg PO BEDTIME Interventions: ED Discharge Assessment Last Done: 09/13/24 03:40 Discharge Date/Time: 09/13/24 03:44 Print Language: [place]
[2024-09-12 19:59] VITALS: BP 115/80; PULSE 100; RESP 16; TEMP 37.1; O2SAT 96
[2024-09-12 21:25] VITALS: BP 126/74; PULSE 100; RESP 19; TEMP 37; O2SAT 100
[2024-09-12] MEDS: Acetaminophen 325 MG TABLET 650 MG PO (21:27)
--- NOTE | 2024-09-13 01:54 | PC.NURSE ---
Pt a&ox4, no signs of distress Pt reports 8/10 back pain Pts family at bedside Plan of care ongoing.
[2024-09-13] MEDS: Lidocaine 4 % Patch ADH..PATCH 1 PATCH TRANSDERMA (03:05)
[2024-09-13] MEDS: oxyCODONE HCl Immed Release 5 MG TABLET PO (03:05)
[2024-09-13 03:38] VITALS: BP 129/67; PULSE 100; TEMP 36.5; O2SAT 100
[2024-09-13 03:40] VITALS: BP 129/67; PULSE 100; RESP 12; TEMP 36.5; O2SAT 100
== END 2024-09-13 03:44 | disposition home or self-care (01) ==
PROVIDERS: Emergency Provider Internal Medicine; PCP Family Medicine
DX: S39.012A Strain of muscle, fascia and tendon of lower back, initial encounter (principal); X58.XXXA Exposure to other specified factors, initial encounter; Y93.9 Activity, unspecified; Y92.9 Unspecified place or not applicable; Y99.8 Other external cause status
CPT/HCPCS: 72100; 99283; 99284

== ENCOUNTER → 2024-09-12 15:13 | Outpatient (BNV) | payer MEDICARE, SELFPAY | PROVIDERS: PCP Family Medicine; Visit Provider Radiology Diagnostic Radiology | DX: M54.50 Low back pain, unspecified (principal); M41.35 Thoracogenic scoliosis, thoracolumbar region | CPT/HCPCS: 72100 ==

== ENCOUNTER 2024-09-14 16:45 | Emergency (ER) | payer MEDICARE, SELFPAY ==
--- NOTE | ~2024-09-14 | XR_ITS ---
CLINICAL HISTORY: pain Radiograph of the abdomen 1 view Comparison: CT/SR - CT ABDOMEN PELVIS WO IV CON - 08/19/24 20:38 EST Findings: 2 supine films were obtained. There is gaseous distention of multiple small and large bowel loops. There is a large amount of retained stool in the colon especially in the ascending and proximal transverse colon. No radiopaque foreign body. No pathologic calcification. No acute osseous abnormality. There is left lower lobe pleural-parenchymal opacity. Impression: 1. Small and large bowel ileus pattern. No definite obstruction. 2. Large colonic stool burden. 3. Probable small left pleural effusion with adjacent compressive atelectasis and/or consolidation. This document has been electronically signed by: Blank Modi DO on 09/14/2024 19:06:50
[2024-09-14 16:55] VITALS: BP 132/53; PULSE 95; O2SAT 95
[2024-09-14 17:02] VITALS: BP 140/59; PULSE 94; RESP 18; TEMP 36.6; O2SAT 92; BMI 20.6
--- NOTE | 2024-09-14 17:29 | ED_ITS ---
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 Patient was seen in the emergency department on September 12 for 3 days' worth of atraumatic back pain. She had imaging at that time that revealed degenerative changes of her lumbar spine, she also has scoliosis. Patient was prescribed oxycodone. Patient states the pain is constant, severe at times, certain movements elicit significant discomfort. There was no radiation of pain down either extremity. Denies urinary retention or bowel incontinence. Denies weakness of lower extremities, no paresthesia. Patient is requesting help with her activities of daily living, she can not manage her current pain at this time. Patient was also constipated, her last bowel movement was 4-5 days ago. Denies abdominal distention, nausea vomiting. Related Data Home Medications ?Medication ?Instructions ?Recorded ?Confirmed amitriptyline 100 mg tablet 100 mg PO BEDTIME 09/10/22 10/06/22 atorvastatin 40 mg tablet 40 mg PO BEDTIME 09/10/22 10/06/22 divalproex 500 mg tablet,delayed 500 mg PO BEDTIME 09/10/22 10/06/22 release metoprolol succinate 25 mg 25 mg PO BEDTIME 09/10/22 10/06/22 tablet,extended release 24 hr Previous Rx's ?Medication ?Instructions ?Recorded meloxicam 15 mg tablet 15 mg PO DAILY #7 tabs 08/19/24 lidocaine 4 % topical patch 1 patch topical DAILY PRN pain #15 09/13/24 ea oxycodone 5 mg tablet 5 mg PO Q8H PRN pain #20 tabs 09/13/24 Allergies Allergy/AdvReac Type Severity Reaction Status Date / Time No Known Allergies Allergy Verified 09/14/24 17:04 [No Known Allergies*] Review of Systems 2 Review of Systems: Yes all other systems are reviewed and are negative Constitutional: Constitutional: Denies fatigue and Denies fever(s) Cardiovascular: Cardiovascular: Denies chest pain and Denies dyspnea Respiratory: Respiratory: Denies cough and Denies dyspnea Gastrointestinal: Gastrointestinal: Reports abdominal pain, Reports constipation, Denies nausea and Denies vomiting Musculoskeletal: Musculoskeletal: Reports back pain, Denies muscle weakness, Denies numbness, Denies radiating pain into limb and Denies tingling Neurologic: Denies numbness and Denies tingling Endocrine: Endocrine: Denies fatigue [facility] Past Medical History Attestation statement: The following information was validated with the patient. Medical History History of inguinal hernia Surgical History History of breast lump/mass excision (10/06/22) History of repair of right rotator cuff (2003) History of breast biopsy (2005) History of section (1989) Family History Family History Father Non-Hodgkin lymphoma Social History Social History Unable to assess alcohol history related to: Unknown Alcohol intake: never Patient Tobacco Use Status: Never used Tobacco Smoked in Last 30 Days: No Use of substances other than those prescribed or required for medical reasons: Unknown Advance Directives: No Advance Directives Information Provided: No Physical Exam ED Vital Signs: Vital Signs - 24 hr 09/14/24 17:02 Temperature 97.8 F Pulse Rate 94 Respiratory Rate 18 Blood Pressure 140/59 H Pulse Oximetry 92 Oxygen Delivery Method Room Air BMI result Body Mass Index 20.6 Medications Administered Discontinued Medications Generic Name Dose Route Start Last Admin Trade Name Mya PRN Reason Stop Dose Admin Acetaminophen 975 mg 09/14/24 17:29 09/14/24 17:49 Acetaminophen 325 Mg Tablet PO 09/14/24 17:30 975 mg ONCE ONE Administration Oxycodone HCl 5 mg 09/14/24 17:29 09/14/24 17:49 Oxycodone Hcl Immed Release 5 Mg Tablet PO 09/14/24 17:30 5 mg ONCE ONE Administration Medical Decision Making Medical Decision Making MDM Narrative: 69-year-old female with a history of 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 Patient was seen in the emergency department on September 12 for 3 days' worth of atraumatic back pain. She had imaging at that time that revealed degenerative changes of her lumbar spine, she also has scoliosis. Patient was prescribed oxycodone. Patient states the pain is constant, severe at times, certain movements elicit significant discomfort. There was no radiation of pain down either extremity. Denies urinary retention or bowel incontinence. Denies weakness of lower extremities, no paresthesia. Patient is requesting help with her activities of daily living, she can not manage her current pain at this time. Patient was also constipated, her last bowel movement was 4-5 days ago. Denies abdominal distention, nausea vomiting. Problem: Known degenerative changes of lumbar spine, History: Per patient I have considered the following differential diagnoses: Bowel obstruction, constipation, fecal impaction, worsening pain, inability to care for self at home Plan: The patient requires PT case management, she is unable to perform ADLs at home secondary to her pain. She now is also struggling with constipation. She has been trying to use home remedies without relief, her states he even tried to use an enema, which did not help. We will obtain a KUB to assess for stool burden, to note she does not have obstructive symptoms at this time. I had ordered Tylenol and oxycodone for her before I realized she was constipated. We will screen basic labs a UA and viral panel as medical clearance for PT case management. I have independently reviewed the following tests: Labs: No leukocytosis, not anemic, no electrolyte abnormality, urine not collected yet, viral panel neg KUB:Findings: 2 supine films were obtained. There is gaseous distention of multiple small and large bowel loops. There is a large amount of retained stool in the colon especially in the ascending and proximal transverse colon. No radiopaque foreign body. No pathologic calcification. No acute osseous abnormality. There is left lower lobe pleural-parenchymal opacity. Impression: 1. Small and large bowel ileus pattern. No definite obstruction. 2. Large colonic stool burden. 3. Probable small left pleural effusion with adjacent compressive atelectasis and/or consolidation. This document has been electronically signed by: Blank Modi DO on 09/14/2024 19:06:50 The patient's pain remains poorly controlled, certain movements in bed cause severe pain. We will be giving IV Valium and a 1 time dose of Decadron. We will be admitting the patient due to presence of ileus, adding on milk of magnesia, there was no fecal impaction. Lab Data 09/14/24 18:28 09/14/24 18:28 Labs: Lab Results 09/14/24 Range/Units 18:28 WBC 9.4 (4.8-10.8) X10*3/uL RBC 3.88 L (4.20-5.50) X10*6/uL Hgb 12.0 (12.0-16.0) g/dl Hct 36.7 L (37.0-47.0) % MCV 94.6 (80.0-98.0) fL MCH 30.9 (27.0-33.0) pg MCHC 32.7 (31.0-35.0) g/dl RDW 12.2 (11.0-16.0) % Plt Count 225 (160-400) X10*3/uL MPV 9.1 L (9.4-12.3) fL Immature Gran % (Auto) 0.5 H (0.0-0.4) % Neut % (Auto) 76.1 H (45-73) % Lymph % (Auto) 10.5 L (20-40) % [place] % (Auto) 11.9 H (2-11) % Eos % (Auto) 0.4 (0-4) % Baso % (Auto) 0.6 (0-2) % Lymph # (Auto) 1.0 L (1.2-4.9) X10*3/uL [place] # (Auto) 1.1 (0.1-1.2) X10*3/uL Eos # (Auto) 0.0 (0.0-0.4) X10*3/uL Baso # (Auto) 0.1 (0.0-0.2) X10*3/uL Abs Immat Gran (auto) 0.05 H (0.00-0.03) X10*3/uL Absolute Neuts (auto) 7.1 (2.0-8.3) x10*3/uL Absolute Nucleated RBC 0.000 (0.0-0.012) X10*3/uL Nucleated RBC % (auto) 0.0 (0.0-0.2) /100WBC Sodium 137 (135-145) mmol/L Potassium 4.3 (3.3-5.1) mmol/L Chloride 105 (96-108) mmol/L Carbon Dioxide 22 (22-29) mmol/L Anion Gap 14 (12-20) BUN 30 H (9-16) mg/dL Creatinine 0.71 (0.5-1.4) mg/dL Estim Creat Clear Calc 65.1 Estimated GFR > 60 Random Glucose 85 (60-115) mg/dL Calcium 9.7 (8.4-10.2) mg/dL Total Bilirubin 0.5 (0.0-1.0) mg/dL AST 35 H (5-31) U/L ALT 11 (0-31) U/L Alkaline Phosphatase 70 (39-117) U/L Total Protein 7.1 (6.5-8.0) g/dL Albumin 3.4 L (3.5-5.0) g/dL Influenza Type A (PCR) NEGATIVE (Negative) Influenza Type B (PCR) NEGATIVE (Negative) RSV RNA Qual (PCR) NEGATIVE (Negative) SARS-CoV-2 RNA (RT-PCR) NEGATIVE (Negative) Discharge Plan Discharge Clinical Impression: Arthritis of lumbar spine, Constipation Patient Disposition: Admitted As Inpatient Prescriptions: No Action meloxicam 15 mg tablet 15 mg PO DAILY Qty: 7 0RF oxycodone 5 mg tablet 5 mg PO Q8H PRN (Reason: pain) Qty: 20 0RF Rx Instructions: Partial Fill upon patient request. lidocaine 4 % adhesive patch,medicated 1 patch topical DAILY PRN (Reason: pain) Qty: 15 0RF metoprolol succinate 25 mg tablet extended release 24 hr 25 mg PO BEDTIME amitriptyline 100 mg tablet 100 mg PO BEDTIME atorvastatin 40 mg tablet 40 mg PO BEDTIME divalproex 500 mg tablet,delayed release (DR/EC) 500 mg PO BEDTIME Print Language: Swedish
[2024-09-14] MEDS: oxyCODONE HCl Immed Release 5 MG TABLET PO (17:49)
[2024-09-14] MEDS: Acetaminophen 325 MG TABLET 975 MG PO (17:49)
[2024-09-14 18:36] LABS: MANUAL DIFF FLAG NO
[2024-09-14 18:37] LABS: Basophils Absolute Auto 0.1 X10*3/uL (0.0-0.2); Basophils Percent Auto 0.6 % (0-2); Eosinophils Percent Auto 0.4 % (0-4); Hematocrit 36.7 % (37.0-47.0); Imm Gran Abs Auto 0.05 X10*3/uL (0.00-0.03); Imm Gran Pct Auto 0.5 % (0.0-0.4); Lymphocytes Percent Auto 10.5 % (20-40); Mean Corpuscular HGB Conc 32.7 g/dl (31.0-35.0); Mean Corpuscular Hemoglobin 30.9 pg (27.0-33.0); Mean Corpuscular Volume 94.6 fL (80.0-98.0); Mean Platelet Volume 9.1 fL (9.4-12.3); Monocytes Absolute Auto 1.1 X10*3/uL (0.1-1.2); Monocytes Percent Auto 11.9 % (2-11); Neutrophils Absolute Auto 7.1 x10*3/uL (2.0-8.3); Neutrophils Percent Auto 76.1 % (45-73); Platelet Count 225 X10*3/uL (160-400); Red Blood Count 3.88 X10*6/uL (4.20-5.50); Red Cell Distribution Width 12.2 % (11.0-16.0); White Blood Count 9.4 X10*3/uL (4.8-10.8)
[2024-09-14 18:52] LABS: Alanine Aminotransferase 11 U/L (0-31); Albumin Level 3.4 g/dL (3.5-5.0); Alkaline Phosphatase 70 U/L (39-117); Anion Gap 14 (12-20); Aspartate Amino Transferase 35 U/L (5-31); Bilirubin Total 0.5 mg/dL (0.0-1.0); Blood Urea Nitrogen 30 mg/dL (9-16); Calcium 9.7 mg/dL (8.4-10.2); Carbon Dioxide 22 mmol/L (22-29); Chloride 105 mmol/L (96-108); Creatinine Clr Calc Pharmacy 65.1; Estimated Glomerular Filt Rate > 60; Glucose Random 85 mg/dL (60-115); Potassium 4.3 mmol/L (3.3-5.1); Sodium 137 mmol/L (135-145); Total Protein 7.1 g/dL (6.5-8.0)
[2024-09-14 19:16] LABS: Influenza A PCR NEGATIVE (Negative); Influenza B PCR NEGATIVE (Negative); Resp Syncy Virus RNA Qual PCR NEGATIVE (Negative); SARS COV2 PCR INHOUSE NEGATIVE (Negative)
[2024-09-14 20:08] VITALS: BP 155/86; PULSE 99; RESP 16; TEMP 36.6; O2SAT 94
[2024-09-14] MEDS: diazePAM 10 MG/2 ML CARTRIDGE 2.5 MG IVPUSH (20:09)
[2024-09-14] MEDS: Milk of Magnesia 30 ML ORAL.SUSP PO (20:09)
[2024-09-14] MEDS: dexAMETHasone sod phosphate 10 MG/ML VIAL IVPUSH (20:09)
--- NOTE | 2024-09-14 20:47 | MHC.CM.ED ---
Addendum entered by Annalee Pena 09/14/24 20:57: CM was told by provider that hospitalist has declined admission at this time. Provider is speaking with patient. CM will place referrals. Addendum entered by Annalee Pena 09/14/24 20:56: CM was told that patient will be admitted for an ileus. CM will hold on referrals. Original Note: CM met with patient and her prior to the completed work -up at the request of Alana DAUGHERTY. Pt is A&Ox3. Has a walker and cane at home, but states she doesn't use them. States they are her husbands, but she has used the walker this past week due to her back pain. They have no services. Pt drives. Pt is agreeable to PT assessment and local referrals for STR, as she cannot care for herself at home with her limited mobility and pain level. Pt first choice is [facility], as her sister works there HCP was reviewed, completed and signed. HCP#1 Carter Antunez () [phone] and HCP#2 Ingrid Acosta (sister) [phone]. Uploaded into [employer] and copies given to . Patient aware that her insurance needs to approve any STR, and with [place] [employer], CM would expect her to be here over the weekend. CM will follow for discharge planning.
[2024-09-14] MEDS: bisacodyL 5 MG TABLET.DR 10 MG PO (21:08)
[2024-09-14] MEDS: Lactulose 20 GM/30 ML SOLUTION 30 GM PO (21:08)
[2024-09-14 21:12] VITALS: BP 155/77; PULSE 102; RESP 16; TEMP 36.4; O2SAT 96
--- NOTE | 2024-09-14 21:15 | PHA.MEDREC ---
Addendum entered by Telma Lucas RPh 09/14/24 21:36: med rec reviewed by karina Original Note: Pharmacy Consult ? Medication Reconciliation Pharmacy has completed the medication reconciliation. Spoke with patient and she confirmed her medications. She confirmed her Dr stopped her Cyclobenzaprine in the last 2 weeks. She confirmed the Emgality 120 mg/mL syringe once a month and stated she was due to take that today but was not able to. She confirmed she last took her medications last night.
--- NOTE | 2024-09-14 21:18 | PC.NURSE ---
Report called and given to Payal GARRIDO in overflow portion of ED. Process explained to patient. Med Rec complete
--- NOTE | 2024-09-14 21:45 | PC.NURSE ---
pt arrived to overflow via stretcher. pt at bedside to say gurpreet and to see where she is staying the night. pt was unable to transfer over to the bed due to back pain. pt was transferred with 3 assist and did elevate her pain level during this. pt will be settled in and reassessed pain status.
[2024-09-14 21:51] VITALS: BP 179/80; PULSE 102
[2024-09-14] MEDS: Atorvastatin Calcium 40 MG TABLET PO (21:51)
[2024-09-14] MEDS: Metoprolol Succinate ER 25 MG TAB.ER.24H PO (21:51)
[2024-09-14] MEDS: Amitriptyline HCl 50 MG TABLET 100 MG PO (22:49)
[2024-09-14] MEDS: Divalproex Sodium 500 MG TABLET.DR PO (22:49)
--- NOTE | 2024-09-15 04:21 | PC.NURSE ---
pt arrived to over flow and changed over into hospital gown, briefs removed and wound noted as in report. pt denies pain. pt repositioned to allow relief to the buttock wound. needs at bedside, call mendoza not present so pt was given a table top mendoza he can ring on his left side. pt is right sided effective more to the upper body due to cva. pt is able to lift his right leg slightly.
--- NOTE | 2024-09-15 04:28 | PC.NURSE ---
pt bedside set up with apple juice/straw. urinal, silver mendoza to ring if needed. belongings in belongings bag at bedside. pt phone is charging at the bedside table.
[2024-09-15 05:35] VITALS: BP 141/74; PULSE 96; RESP 19; TEMP 36.3; O2SAT 93
[2024-09-15 07:31] VITALS: BP 141/74; PULSE 96; O2SAT 93
[2024-09-15 08:00] VITALS: BP 130/61; PULSE 89; RESP 16; TEMP 36.7; O2SAT 94
--- NOTE | 2024-09-15 10:39 | MHC.CM.ED ---
Addendum entered by Almita Gong 09/15/24 12:26: Received notification from Tamika RN and Palma DAUGHERTY that patient's does not feel patient is safe to d/c home and is requesting another PT eval. Also requesting referral to [facility] [place] because they have family that work there. Repeat PT completed. Referral made to [facility]. Original Note: Patient remains in ER overflow. Physical therapy eval completed. Home with services is recommended. Met with patient in regards to discharge planning. Patient agreeable to d/c home with referral to [facility] for physical therapy. Patient's will transport her home. Tamika RN and Palma DAUGHERTY aware. Continue to monitor for d/c needs.
--- NOTE | 2024-09-15 13:12 | MHC.CM.ED ---
[facility] is able to offer a bed and is in the process of obtaining insurance auth. Continue to monitor for d/c needs.
--- NOTE | 2024-09-15 15:22 | MHC.CM.ED ---
Received nofitication from Queta GARRIDO that patient now requesting to return home with [facility]. Met with patient and , Carter, to confirm d/c plan. Carter stated No one said she wanted to go to [facility] [place]. T/W explained patient stated she wanted to go and that was #1 facility. Patient confirms this statement. Both patient and Carter agree that patient will d/c home with [facility]. Carter will transport patient home. Queta GARRIDO and Palma DAUGHERTY aware. [facility] made aware. [facility] made aware. Will not be able to see patient before Wednesday. Continue to monitor for d/c needs.
[2024-09-15 15:50] VITALS: BP 113/55; PULSE 98; RESP 16; TEMP 36.8; O2SAT 95
[2024-09-15] MEDS: diazePAM 2 MG TABLET PO (15:58)
[2024-09-15 17:13] VITALS: BP 113/55; PULSE 80; RESP 16; TEMP 36.8; O2SAT 95
== END 2024-09-15 17:13 | disposition home or self-care (01) ==
PROVIDERS: Physician Assistant Medical; Emergency Provider Emergency Medicine; PCP Family Medicine
DX: M47.816 Spondylosis without myelopathy or radiculopathy, lumbar region (principal); K59.00 Constipation, unspecified; R26.81 Unsteadiness on feet; M54.50 Low back pain, unspecified; Z03.818 Encounter for observation for suspected exposure to other biological agents ruled out; Z79.899 Other long term (current) drug therapy
CPT/HCPCS: 0241U; 74018; 80053; 85025; 96374; 96375; 97161; 99285; J1100; J3360

== ENCOUNTER → 2024-09-14 18:26 | Outpatient (BNV) | payer MEDICARE, SELFPAY | PROVIDERS: Emergency Provider Emergency Medicine; PCP Family Medicine; Visit Provider Radiology Diagnostic Radiology | DX: R10.9 Unspecified abdominal pain (principal); K59.00 Constipation, unspecified | CPT/HCPCS: 74018 ==

== ENCOUNTER 2024-11-09 14:23 | Outpatient (REF) | payer MEDICARE, SELFPAY ==
--- NOTE | ~2024-11-09 | XR_ITS ---
EXAMINATION: XR CHEST 2 VIEWS HISTORY: SOB, WHEEZING COMPARISON: There are no prior studies for comparison. FINDINGS: PA and lateral views of the chest are submitted. The lungs are expanded and clear. There is no pleural effusion, pneumothorax, or pulmonary vascular congestion. The heart appears enlarged. There is degenerative disc disease and dextroscoliosis of the spine. There is a probable moderate to severe compression deformity of a lower thoracic vertebral body. XR/XR chest 2V IMPRESSION: No acute cardiopulmonary abnormality. Electronically signed by: Kermit Bonilla MD 11/09/2024 03:51 PM EDT
== END 2024-11-09 14:24 | disposition home or self-care (01) ==
LOC: HO.HMGCX 14:23
PROVIDERS: PCP Family Medicine; Visit Provider Family Medicine
DX: R06.02 Shortness of breath (principal); R06.2 Wheezing
CPT/HCPCS: 71046

== ENCOUNTER → 2024-11-09 14:35 | Outpatient (BNV) | payer MEDICARE, SELFPAY | PROVIDERS: PCP Family Medicine; Visit Provider Radiology Diagnostic Radiology | DX: R06.02 Shortness of breath (principal); R06.2 Wheezing | CPT/HCPCS: 71046 ==

== ENCOUNTER 2024-11-12 16:50 | Emergency (ER) | payer MEDICARE, SELFPAY ==
--- NOTE | ~2024-11-12 | CT_ITS ---
CLINICAL HISTORY: fall, pain CT head without contrast Comparison: None Findings: No intra-axial mass, midline shift, hydrocephalus, or acute hemorrhage. Moderate atrophy-like change or white matter disease. The visualized paranasal sinuses and mastoid air cells are normal. The orbits are unremarkable. No skull fracture. IMPRESSION: 1. No acute intracranial findings specifically, no acute intracranial hemorrhage. 2. Moderate generalized cerebral volume loss and mild chronic microvascular ischemic changes. This document has been electronically signed by: Alanna Harrison MD on 11/12/2024 19:28:20
--- NOTE | ~2024-11-12 | CT_ITS ---
CLINICAL HISTORY: fall, pain CT cervical spine without contrast Comparison: None Findings: Exaggerated cervical lordosis. No significant degenerative change. No acute fractures or dislocations. No acute findings on limited view of the intracranial contents. Soft tissues of the neck are normal. Lung apices are clear. Moderate levoscoliosis of the cervicothoracic junction. IMPRESSION: No evidence of acute fracture or traumatic listhesis of the cervical spine. Exaggerated cervical lordosis and moderate levoscoliosis of the cervicothoracic junction. This document has been electronically signed by: Alanna Harrison MD on 11/12/2024 19:07:19
[2024-11-12 16:54] VITALS: BP 130/80; BP 139/67; PULSE 114; RESP 18; TEMP 36.7; O2SAT 95; O2SAT 96; BMI 18.0
--- NOTE | 2024-11-12 17:02 | ED.FALL ---
HPI - Fall General Chief Complaint: Fall Stated Complaint: mechanical fall, + head strike, on thinners Time Seen by Provider: 11/12/24 16:58 Source: patient and EMS Mode of arrival: EMS Limitations: no limitations History of Present Illness ED Provider: Halima Billy APRN HPI Narrative: 69 yo female with history of TIA on dual platelet therapy here with complaints of posterior head pain after a fall with a head strike. Patient reports she was bending down to pick something up when she lost her balance hitting the back of her head. No LOC. denies headache, nausea, vomiting, vision changes, dizziness, neck pain. Patient reports she was concerned and sought emergency care as she was told by her provider that if she struck her head she must be seen due to her being on Plavix. Related Data Home Medications ?Medication ?Instructions ?Recorded ?Confirmed amitriptyline 100 mg tablet 100 mg PO BEDTIME 09/10/22 09/14/24 atorvastatin 40 mg tablet 40 mg PO BEDTIME 09/10/22 09/14/24 divalproex 500 mg tablet,delayed 500 mg PO BEDTIME 09/10/22 09/14/24 release metoprolol succinate 25 mg 25 mg PO BEDTIME 09/10/22 09/14/24 tablet,extended release 24 hr galcanezumab-gnlm 120 mg/mL 120 mg subcut QMONTH 09/14/24 09/14/24 subcutaneous syringe (Emgality) sumatriptan succinate 100 mg tablet 100 mg PO DAILY PRN Migraine 09/14/24 09/14/24 Headache Previous Rx's ?Medication ?Instructions ?Recorded lidocaine 4 % topical patch 1 patch topical DAILY PRN pain #15 09/13/24 ea Allergies Allergy/AdvReac Type Severity Reaction Status Date / Time No Known Allergies Allergy Verified 11/12/24 16:58 [No Known Allergies*] Review of Systems Review of Systems: Yes all other systems are reviewed and are negative Constitutional: Constitutional: Reports no additional constitutional complaints, Denies body ache(s), Denies chills, Denies fever(s), Denies headache(s) and Denies weakness Eyes: Eyes: Reports no additional eye complaints and Denies change in vision ENT: Reports system reviewed and no additional complaints, except as documented, Denies dizziness, Denies headache(s), Denies nasal congestion, Denies nasal discharge and Denies neck pain Cardiovascular: Cardiovascular: Reports no additional cardiovascular complaints, Denies chest pain, Denies leg edema and Denies dyspnea Respiratory: Respiratory: Reports no additional respiratory complaints, Denies cough and Denies dyspnea Gastrointestinal: Gastrointestinal: Reports no additional gastrointestinal complaints, Denies abdominal pain, Denies diarrhea, Denies nausea and Denies vomiting Genitourinary: Genitourinary: Reports no additional female genitourinary complaints and Denies urinary incontinence Musculoskeletal: Musculoskeletal: Reports no additional musculoskeletal complaints, Denies back pain, Denies arthralgias, Denies joint swelling, Denies neck pain, Denies numbness and Denies tingling Integumentary/Breasts: Skin/Breast: Reports system reviewed and no additional complaints, except as docu and Denies rash Neurologic: Reports system reviewed and no additional complaints, except as documented, Denies Abnormal speech present, Denies dizziness, Denies headache(s), Denies numbness, Denies tingling and Denies weakness PMFSH Past Medical History Attestation statement: The following information was validated with the patient. Source: old records reviewed and nursing notes reviewed Medical History History of inguinal hernia Surgical History History of breast lump/mass excision (10/06/22) History of repair of right rotator cuff (2003) History of breast biopsy (2005) History of section (1989) Family History Family History Father Non-Hodgkin lymphoma Social History Social History Unable to assess alcohol history related to: Unknown Alcohol intake: never Patient Tobacco Use Status: Never used Tobacco Smoked in Last 30 Days: No Use of substances other than those prescribed or required for medical reasons: No Advance Directives: No Advance Directives Information Provided: No Physical Exam Vital Signs: Vital Signs: Last Vital Signs Temp 98.3 F 11/12/24 18:14 Pulse 110 H 11/12/24 19:03 Resp 19 11/12/24 19:03 BP 166/77 H 11/12/24 19:03 Pulse Ox 93 11/12/24 19:03 O2 Del Method Room Air 11/12/24 19:03 BMI result Body Mass Index 18.0 Const: General: cooperative, healthy appearing, comfortable and no acute distress Orientation/consciousness: patient oriented x3 Limitations: no limitations HEENT: Head: Yes normal to inspection, No Holguin's sign and No raccoon eyes Ears: hearing grossly normal bilaterally and TM's normal bilaterally General nose exam: Normal external nose present Face and sinus: Yes normal facial exam Mouth: Normal oral and palatal mucosa present Throat: Yes posterior oropharynx normal Eyes: General: appearance normal, both eyes and all related structures Pupils: Equal, round and reactive pupils present Neck: Neck: Yes normal visual inspection Chest: Chest palpation & inspection: normal inspection of the chest Resp: Effort & Inspection: normal respiratory effort Auscultation: clear to auscultation bilaterally Cardio: Rate: regular rate Rhythm: regular rhythm Peripheral pulses: Peripheral pulses 2+ throughout GI: Inspection: Yes normal to inspection Palpation (GI): Soft to palpation and nontender Auscultation: normal bowel sounds Back/Spine/Pelvis: Thoracic/Lumbar Spine: thoracic and lumbar spine normal to inspection Skin: General skin exam: no rashes or lesions noted Neuro: General: patient oriented x3, moves all extremities, no focal motor deficits, normal sensation to monofilament and Unable to assess gait Cranial nerves: Yes CN's II-XII intact bilaterally, Yes Equal, round and reactive pupils present, Yes Bilaterally intact EOM present, Yes Nystagmus not present, Yes Normal facial strength present and Yes Midline tongue present Cognition (Neuro): normal cognition Speech: No Abnormal speech present Gait exam (Neuro): Unable to assess gait Motor exam (neuro): 5/5 motor strength present throughout Sensory Exam: Normal double simultaneous stimulation for sensation Extrem: General: Yes normal to inspection Course Course Course Narrative: CT head and cervical spine show no signs of active bleeding or skull fracture. Reviewed findings with patient. We reviewed head injury care at home. Reviewed worrisome signs and symptoms of when to return to the emergency room. Comfortable plan for discharge home. Medical Decision Making Medical Decision Making MDM Narrative: 69 yo female with history of TIA on dual platelet therapy here with complaints of posterior head pain after a fall with a head strike. Patient reports she was bending down to pick something up when she lost her balance hitting the back of her head. No LOC. denies headache, nausea, vomiting, vision changes, dizziness, neck pain. Patient reports she was concerned and sought emergency care as she was told by her provider that if she struck her head she must be seen due to her being on Plavix. Normal neuro exam with no focal deficits Vitals stable Will obtain CT head, CT cervical spine Differential Diagnosis Differential Diagnoses: The differential diagnosis associated with the presentation includes Contusion, concussion, ICH, basilar skull fracture Admission/Observation Consideration of admission/observation: Escalation of care including admission/observation considered Lab Data MDM Lab Attestation statement: I reviewed the patient's lab results. Independent Interpretation I performed an independent interpretation of an: CT Scan Interpretation: I independently viewed the CT scan agree with the radiology report Radiology Impression Discussion of test interpretation with radiology: I have reviewed the radiologist's reading. Radiologist Impression: [place] [id number] CT Scan Report Signed Patient: Nadia Antunez MR#: [id number] : 1955 Acct:[id number] Age/Sex: 69 / F ADM Date: 11/12/24 Loc: HO.ED Attending Dr: Ordering Physician: Halima Billy NP Date of Service: 11/12/24 Procedure(s): CT cervical spine wo IV con Accession Number(s): [id number] cc: Ba Ugarte MD; Halima Billy NP~ Report Number: [id number]: Total DLP = 212.73 mGy-cm CLINICAL HISTORY: fall, pain CT cervical spine without contrast Comparison: None Findings: Exaggerated cervical lordosis. No significant degenerative change. No acute fractures or dislocations. No acute findings on limited view of the intracranial contents. Soft tissues of the neck are normal. Lung apices are clear. Moderate levoscoliosis of the cervicothoracic junction. IMPRESSION: No evidence of acute fracture or traumatic listhesis of the cervical spine. Exaggerated cervical lordosis and moderate levoscoliosis of the cervicothoracic junction. This document has been electronically signed by: Alanna Harrison MD on 11/12/2024 19:07:[address] [address] [address] Scan Report Signed Patient: Nadia Antunez MR#: [id number] : 1955 Acct:[id number] Age/Sex: 69 / F ADM Date: 11/12/24 Loc: HO.ED Attending Dr: Ordering Physician: Halima Billy NP Date of Service: 11/12/24 Procedure(s): CT head/brain wo IV con Accession Number(s): [id number] cc: Ba Ugarte MD; Halima Billy NP~ Report Number: [id number]: Total DLP = 551.25 mGy-cm CLINICAL HISTORY: fall, pain CT head without contrast Comparison: None Findings: No intra-axial mass, midline shift, hydrocephalus, or acute hemorrhage. Moderate atrophy-like change or white matter disease. The visualized paranasal sinuses and mastoid air cells are normal. The orbits are unremarkable. No skull fracture. IMPRESSION: 1. No acute intracranial findings specifically, no acute intracranial hemorrhage. 2. Moderate generalized cerebral volume loss and mild chronic microvascular ischemic changes. This document has been electronically signed by: Alanna Harrison MD on 11/12/2024 19:28:20 Independent Historian Clinical information obtained from an independent historian. History obtained from or confirmed by: Spouse Discharge Plan Discharge Clinical Impression: Head injury Patient Disposition: Home, Self-Care Instructions: Head Injury (ED) Additional Instructions: Your CT scan shows no signs of bleeding or fracture Please return if you have any worsening headache, vomiting, vision changes or change in behavior Prescriptions: No Action sumatriptan succinate 100 mg tablet 100 mg PO DAILY PRN (Reason: Migraine Headache) Emgality Syringe 120 mg/mL syringe 120 mg SUBCUT QMONTH lidocaine 4 % adhesive patch,medicated 1 patch topical DAILY PRN (Reason: pain) Qty: 15 0RF metoprolol succinate 25 mg tablet extended release 24 hr 25 mg PO BEDTIME amitriptyline 100 mg tablet 100 mg PO BEDTIME atorvastatin 40 mg tablet 40 mg PO BEDTIME divalproex 500 mg tablet,delayed release (DR/EC) 500 mg PO BEDTIME Referrals: Ba Ugarte MD [Primary Care Provider] - 1 week Print Language: Belarusian
[2024-11-12 18:14] VITALS: BP 158/84; PULSE 110; RESP 26; TEMP 36.8; O2SAT 95
[2024-11-12 19:03] VITALS: BP 166/77; PULSE 110; RESP 19; O2SAT 93
[2024-11-12 19:40] VITALS: BP 166/77; PULSE 110; RESP 19; TEMP 36.6; O2SAT 93
== END 2024-11-12 19:55 | disposition home or self-care (01) ==
PROVIDERS: Emergency Provider Emergency Medicine Emergency Medical Services; PCP Family Medicine
DX: S09.90XA Unspecified injury of head, initial encounter (principal); W18.30XA Fall on same level, unspecified, initial encounter; Y93.9 Activity, unspecified; Y92.9 Unspecified place or not applicable; Y99.9 Unspecified external cause status; R51.9 Headache, unspecified; M54.2 Cervicalgia
CPT/HCPCS: 70450; 72125; 99284

== ENCOUNTER → 2024-11-12 17:02 | Outpatient (BNV) | payer MEDICARE, SELFPAY | PROVIDERS: Emergency Provider Emergency Medicine Emergency Medical Services; PCP Family Medicine; Visit Provider Student in an Organized Health Care Education/Training Program | DX: M54.2 Cervicalgia (principal); R51.9 Headache, unspecified; W01.198A Fall on same level from slipping, tripping and stumbling with subsequent striking against other object, initial encounter | CPT/HCPCS: 70450; 72125 ==

== ENCOUNTER 2024-12-20 13:22 | Outpatient (REF) | payer MEDICARE, SELFPAY ==
[2024-12-20 13:41] LABS: MANUAL DIFF FLAG NO
[2024-12-20 14:23] LABS: Basophils Absolute Auto 0.1 X10*3/uL (0.0-0.2); Eosinophils Absolute Auto 0.1 X10*3/uL (0.0-0.4); Eosinophils Percent Auto 0.8 % (0-4); Hematocrit 35.2 % (37.0-47.0); Hemoglobin 11.4 g/dl (12.0-16.0); Imm Gran Abs Auto 0.04 X10*3/uL (0.00-0.03); Imm Gran Pct Auto 0.5 % (0.0-0.4); Lymphocytes Absolute Auto 1.4 X10*3/uL (1.2-4.9); Lymphocytes Percent Auto 16.6 % (20-40); Mean Corpuscular HGB Conc 32.4 g/dl (31.0-35.0); Mean Corpuscular Hemoglobin 29.3 pg (27.0-33.0); Mean Corpuscular Volume 90.5 fL (80.0-98.0); Mean Platelet Volume 9.8 fL (9.4-12.3); Monocytes Absolute Auto 0.9 X10*3/uL (0.1-1.2); Monocytes Percent Auto 10.3 % (2-11); Neutrophils Absolute Auto 6.1 x10*3/uL (2.0-8.3); Neutrophils Percent Auto 70.8 % (45-73); Platelet Count 320 X10*3/uL (160-400); Red Blood Count 3.89 X10*6/uL (4.20-5.50); Red Cell Distribution Width 12.9 % (11.0-16.0); White Blood Count 8.7 X10*3/uL (4.8-10.8)
[2024-12-20 15:07] LABS: C Reactive Protein 0.46 mg/dL (< or = 0.50); Iron 71 mcg/dL (30-160); Percent Iron Saturation 22 % (15-50); Total Iron Binding Capacity 321 mcg/dL (228-428); Unsaturated Iron Binding 250 ug/dL
[2024-12-20 15:13] LABS: Folate 7.5 ng/mL (> or = 4.0); Vitamin B12 540 pg/mL (200-900)
[2024-12-20 15:23] LABS: Ferritin 67 ng/mL (10-250); Free T4 (Free Thyroxine) 1.06 ng/dL (0.71-1.85)
[2024-12-20 15:26] LABS: Erythrocyte Sedimentation Rate 15 MM/HR (0-20)
[2024-12-26 12:32] LABS: ANA Pattern 2 Nuclear, Homogeneous; ANA Titer 2 1:40 titer; Anti Nuclear Antibody Pattern Nuclear, Nucleolar; Anti Nuclear Antibody Screen POSITIVE (NEGATIVE)
== END 2024-12-20 13:23 | disposition home or self-care (01) ==
LOC: HO.LAB 13:22
PROVIDERS: PCP Family Medicine; Visit Provider Family Medicine
DX: R27.0 Ataxia, unspecified (principal); D64.9 Anemia, unspecified; R53.1 Weakness
CPT/HCPCS: 36415; 82378; 82607; 82728; 82746; 83540; 84439; 85025; 85652; 86038; 86039; 86140

== ENCOUNTER 2025-01-17 12:09 | Outpatient (REF) | payer MEDICARE, SELFPAY ==
--- NOTE | ~2025-01-17 | CT_ITS ---
CLINICAL HISTORY: ABD DISTENTION,WEIGHT LOSS CT abdomen and pelvis with contrast Comparison: CT/AZ/SR - CT ABDOMEN PELVIS WO IV CON - 08/19/24 20:38 EST Findings: The lung bases demonstrate left basilar atelectasis. The liver, gallbladder, spleen, adrenal glands and pancreas are unremarkable. Kidneys, ureters and bladder demonstrate no acute or suspicious abnormality. There is significant fecal retention throughout the colon, slightly increased from prior. No small bowel obstruction or free air. No free fluid or abscess. Normal appendix. The uterus and adnexa are unremarkable. Since the comparison study there has been complete collapse of the previously described T10 compression fracture and new complete collapse of T11. Vertebra plana present at both these levels. Retropulsion creates moderately severe central canal stenosis at T10-T11. Mild superior endplate compression fracture at T12. Impression: Since the comparison study, there has been complete collapse of T10 and T11 with a mild superior endplate compression fracture at T12. Retropulsion creates moderately severe central canal stenosis at T10-T11. Moderately severe fecal retention throughout the colon, increased from prior. This document has been electronically signed by: Gonsalo Elizabeth MD on 01/18/2025 08:36:32
[2025-01-17] MEDS: iohexoL 350 MG/ML 100 ML INFUS..BTL 85 ML IV (12:59)
--- OUTSIDE RECORDS SUMMARY | 2025-01-17 14:02 | XMS_ITS | Patient Health Record ---
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 Role Phone Ba Ugarte MD Primary Care Provider Unavailab Viviana Briscoe Unavailable [phone] Reason For Referral No Information Medications Medication SIG (Take, Route, Frequency, Duration) Notes Start Date End Date Status Zetia 10 MG 1 tablet Orally Once a day Not-Taking Walking Boot/Pneumatic As directed Wear Daily for Until further notice 03/01/2018 Active Zomig 5 MG 1 tablet as needed o ne time Orally Once a day Active Atorvastatin Calcium 40 MG 1 tablet Oral ly Once a day Active Amitriptyline HCl 100 MG 1 tablet Orally Once a day Active Divalproex Sodium 250 MG 1 tablet Orally Twice a day Active Social History Tobacco Use: Social History Observation Description Date Details (start date - stop date) Never Smoker NA - NA Tobacco Use/Smoking Question Answer Notes Are you a: nonsmoker Additional Findings: Tobacco Non-User Current no n-smoker Alcohol Screen Question Answer Notes Did you have a drink containing alcohol in the p ast year? No Points 0 Interpretation Negative Tobacco use other than smoking: Question Answer Notes Are you an other tobacco user? No Problems Problem Type SNOMED Code ICD Code Onset Dates Problem Status W/U Status Risk Notes Problem [id number] Stress fracture, left foot, subsequent encounter for fracture with delayed healing (M84.375G) Active confirmed Plan Of Treatment Pending Test Test Name Order Date X ray : Foot, left 3V 03/01/2018 X ray : Foot, left 3V 03/29/2018 Insurance Providers Payer Name Payer Address Payer Phone Subscriber Number Group Number Insured Name Patient Relationship to Insured Coverage Start Date Coverage End Date [facility] All Others [address] [place] [phone] [id number] Nadia Antunez Self - patient is the insured [facility] All [facility] [address] [place] [address] [id number] Nadia Antunez Self - patient is the insured Medical (General) History Medical History History ICD Code Cholesterol Headaches Measles Mumps Chicken pox Surgical History Surgery Date(Month/Year) rotator cuff tear repair 09/2013 hernia 1998 08/1989 breast surgery 12/2013
[2025-01-22 15:31] LABS: Creatinine POC 0.5 mg/dL (0.5-1.4); GFR POC > 60
== END 2025-01-17 12:10 | disposition home or self-care (01) ==
LOC: HO.CT 12:09
PROVIDERS: PCP Family Medicine; Visit Provider Family Medicine
DX: R13.12 Dysphagia, oropharyngeal phase (principal); R14.0 Abdominal distension (gaseous); R63.4 Abnormal weight loss
CPT/HCPCS: 74177; 82565; Q9967

== ENCOUNTER → 2025-01-17 12:11 | Outpatient (BNV) | payer MEDICARE, SELFPAY | PROVIDERS: PCP Family Medicine; Visit Provider Radiology Vascular & Interventional Radiology | DX: J98.11 Atelectasis (principal) | CPT/HCPCS: 74177 ==

== ENCOUNTER 2025-02-26 09:07 | Outpatient (REF) | payer MEDICARE, SELFPAY ==
--- NOTE | ~2025-02-26 | FL_ITS ---
EXAMINATION: XR FLUOROSCOPY ESOPHAGRAM. CLINICAL INFORMATION: Dysphagia, reflux type symptoms. COMPARISON: None TECHNIQUE: Fluoroscopic air contrast esophagram examination was performed utilizing standard techniques with thin and thick barium and effervescent granules. Numerous spot images were obtained. Several fluoroscopic image hold cine sequences were also obtained. FINDINGS: Study was limited as the patient had severe kyphoscoliosis with numerous compression fractures in her spine, and was unable to position in optimal fashion for this procedure. ESOPHAGRAM: Lateral cine images of the oropharynx and hypopharynx demonstrate normal swallow mechanism with normal epiglottic inversion and soft palate elevation. No laryngeal penetration, glottic or subglottic aspiration identified. No nasopharyngeal reflux present. Hypopharyngeal structures appear normal without evidence of mass or diverticulum. 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 Dual and single contrast images of the esophagus demonstrate normal caliber, contour, and mucosal pattern. No evidence of stricture, mass, or ulcerations identified. Esophageal peristalsis was normal. No definite hiatus hernia seen. No significant gastroesophageal reflux was seen during the course of the examination. Dual contrast and single contrast images of the stomach demonstrated normal contour . There was thickening of the rugal folds, in keeping with gastritis. In addition there were numerous tiny foci of contrast pooling in the stomach, in keeping with small submucosal aphthous type ulcers. No obstruction to contrast passing into the gastric antrum and duodenal bulb. FLUOROSCOPY TIME: 2 minutes 43 seconds Number of Spot Images:6 Number of cines obtained: 6 DOSE AREA PRODUCT: 1438 uGy-m2 (microgray-meter squared) FL/FL barium swallow with air IMPRESSION: 1. Moderate to severe cricopharyngeal achalasia. 2. Severely disordered esophageal peristalsis. 3. Granular appearance of the esophageal mucosa, suspect for esophagitis. 4. No definite hiatus hernia. No significant gastroesophageal reflux noted. 5. Findings in keeping with gastritis. Electronically signed by: Alton Goode MD 02/26/2025 12:46 PM EDT
--- OUTSIDE RECORDS SUMMARY | 2025-02-26 09:44 | XMS_ITS | Clinical Summary ---
Author Organization [facility] Address [address] [place], [place] [id number] Phone Care Team Providers Care Grand Scribe Name Role Phone Ba Ugarte MD Primary Care Provider [phone] Allergies No known active allergies Medications atorvastatin (LIPITOR) 40 MG tablet Take 40 mg by mouth daily. Active metoprolol succinate (TOPROL-XL) 25 MG 24 hr tablet Take 25 mg by mouth nightly at bedtime. at bedtime. 4 Active coenzyme Q10 200 mg capsule Take 200 mg by mouth daily. Active cholecalciferol (VITAMIN D3) 2,000 unit capsule Take by mouth daily. Active famotidine (PEPCID) 20 MG tablet Take 20 mg by mouth 2 (two) times a day. Active SUMAtriptan (IMITREX) 100 MG tabletIndications :Intractable chronic migraine without aura and with status migrainosus Take 1 tablet (100 mg total) by mouth once as needed for migraine. Can repeat dose in 2 hours if needed. Do not exceed 2 doses in a 24 hour period. Max dose 200mg/ day 18 tablet 4 Active EMGALITY SYRINGE 120 mg/mL subcutaneous syringeIndication s:Intractable chronic migraine without aura and with status migrainosus Inject 1 mL (120 mg total) under the skin every 30 (thirty) days. 1 mL 4 Active amitriptyline (ELAVIL) 100 MG tabletIndications :Chronic migraine without aura Take 1 tablet (100 mg total) by mouth nightly at bedtime. 90 tablet 3 4 07/19/20 25 Active Active Problems Problem Noted Date Diagnosed Date Breast lump 01/19/2014 Overview (09/22/2014): Breast lump; benign on biopsy november 2013. 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 (Primary Dx); Thoracic myelopathy 12/21/2024 Telephone [facility] [address] [place] [address] Sandra Jara MA from Last 3 Months Immunizations Immunization Administration Dates Next Due COVID-19 (Pre-05/24) Moderna Vaccine, mRNA, PF 0 09/16/2020,08/19/2020 Influenza, Unspecified Formulation 04/12/2021 Family History Medical History Relation Comments Migraines Daughter Migraine Migraines Mother Migraine Relation Status Comments Daughter Mother Social History Tobacco Use Types Packs/Day Years Used Date Smoking Tobacco: Never Education Answer Date Recorded Are you interested in more education? Not on lisbeth e 11/26/2022 Are you concerned about learning? Not on file 11/26/2022 No 11/26/2022 No 11/26/2022 Digital Access Answer Date Recorded No 12/28/2022 No 12/28/2022 No 12/28/2022 Reliable internet access at home? Not on file 12/28/2022 Device with a working camera? Not on file Comments Unknown Sex and Gender Information Value Date Recorded Sex Assigned at Not on file Legal Sex Female 8:00 PM EST Gender Identity Not on file Sexual Orientation Not on file Last Filed Vital Signs Vital Sign Reading Time Taken Comments Blood Pressure 136/63 03/04/2016 9:33 AM EDT Pulse 94 03/04/2016 9:33 AM EDT Temperature - - Respiratory Rate - - Oxygen Saturation 100% 03/04/2016 9:33 AM EDT Inhaled Oxygen Concentration - - Weight 47.2 kg (104 lb) 03/04/2016 9:33 AM EDT Height 158.8 cm (5' 2.52 ) 03/04/2016 9:33 AM ED T Body Mass Index 18.71 03/04/2016 9:33 AM EDT Plan of Treatment Upcoming Encounters Date Type Department Care Team (Late st Contact Info) Description 07/30/2025 9:00 AM EST Office Visit [facility] [address] [place] [address] Dilan Ugarte MD [address] [facility], [address] [place] [address] [email or web address] Due Date Last Done Comments LIPID PANEL 1955 HEPATITIS C SCREENING 1974 MAMMOGRAM 1996 COLOGUARD 2001 COLONOSCOPY 2001 COLORECTAL CANCER SCREENING 2001 FIT TEST 2001 FOBT 2001 SIGMOIDOSCOPY 2001 VIRTUAL COLONOSCOPY 2001 RSV VACCINE (1 - Risk 60-74 years 1-dose series) 2016 DEPRESSION SCREENING 03/04/2017 03/04/2016 OSTEOPOROSIS SCREENING INITIAL (ONE-TIME) 2021 COVID-19 VACCINE ( season) 2024 04/24/2023, 11/26/2022, 04/08/2022, Additional history exists Adult Td,Tdap Booster 03/25/2029 03/25/2019 SMOKING STATUS SCREENING (Once After 26 Yrs) Completed 03/04/2016 ZOSTER VACCINES Completed 03/13/2018, 11/21/2017 PNEUMOCOCCAL VACCINES (50+ years) Completed 11/12/2022, 06/19/2021 HEPATITIS A VACCINES Aged Out No long er eligible based on patient's age to complete this topic HIB VACCINES Aged Out No longer eligi ble based on patient's age to complete this topic MENINGOCOCCAL VACCINES (ACWY) Aged Out No longer eligible based on patient's age to complete this topic MENINGOCOCCAL VACCINES (B) Aged Out N o longer eligible based on patient's age to complete this topic Medical Devices Not on file Insurance [facility] MEDICARE REPLACEMENT [facility] MEDICARE REPLACEMENT [facility] MEDICARE [facility]PLACEMENT [facility] MEDICARE [facility]PLACEMENT [facility] MEDICARE [facility]PLACEMENT [facility] MEDICARE REPLACEMENT Care Teams Grand Scribe Relationship Specialty Start Date End Date Ba Ugarte MD [address] [place] [address] [place] [address] PCP - General Internal Medicine 09/21/17 Additional Source Comments The information contained in this document represents components of the legal health record. It is not the complete legal health record.[facility]
--- OUTSIDE RECORDS SUMMARY | 2025-02-26 09:44 | XMS_ITS | Patient Health Record ---
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 Role Phone Ba Ugarte MD Primary Care Provider Unavailab Viviana Briscoe Unavailable [phone] Reason For Referral No Information Medications Medication SIG (Take, Route, Frequency, Duration) Notes Start Date End Date Status Zetia 10 MG 1 tablet Orally Once a day Not-Taking Walking Boot/Pneumatic As directed Wear Daily; Duration: Until further notice 03/01/2018 Active Zomig 5 [...] Problem Status W/U Status Risk Notes Problem Stress fracture of foot (965050557) Stress fracture, left foot, subsequent encounter for fracture with delayed healing (M84.375G) Active confirmed Plan Of Treatment Pending Test Test Name Order Date X ray : Foot, left 3V 03/01/2018 X ray : Foot, left 3V 03/29/2018 Insurance Providers Payer Name Payer Address Payer Phone Subscriber Number Group Number Insured Name Patient Relationship to Insured Coverage Start Date Coverage End Date [facility] All Others [address] [place] [address] [phone] [id number] Nadia Antunez Self - patient is the insured [facility] All [facility] [address] [place] [address] [phone] [id number] Nadia Antunez Self - patient is the insured Medical (General) History Medical History History ICD Code Cholesterol Headaches Measles Mumps Chicken pox Surgical History Surgery Date(Month/Year) rotator cuff tear repair 09/2013 hernia 1998 08/1989 breast surgery 12/2013
== END 2025-02-26 09:08 | disposition home or self-care (01) ==
LOC: HO.XRAY 09:07
PROVIDERS: PCP Family Medicine; Visit Provider Family Medicine
DX: R13.12 Dysphagia, oropharyngeal phase (principal); R14.0 Abdominal distension (gaseous); R63.4 Abnormal weight loss
CPT/HCPCS: 74221

== ENCOUNTER → 2025-02-26 09:58 | Outpatient (BNV) | payer MEDICARE, SELFPAY | PROVIDERS: PCP Family Medicine; Visit Provider Radiology Diagnostic Radiology | DX: R13.10 Dysphagia, unspecified (principal) | CPT/HCPCS: 74221 ==

== ENCOUNTER 2025-04-04 14:08 | Outpatient (AMB) | payer MEDICARE, SELFPAY ==
--- NOTE | 2025-04-04 14:10 | A.OFFPC_ITS ---
Vital Signs 04/04/25 14:16 Height 5 ft 2 in Weight 103 lb BMI 18.8 BP 140/74 H Blood Pressure Location Rt brachial Position Sitting Respiration 16 Pulse 85 Pulse Source Pulse Oximeter Temp 98.4 F Temp Source Temporal Artery Scan Pulse Oximetry (%) 98 Oxygen Delivery Method Room Air Intake Visit Reasons: routine Dynamic Etching Processor Required: No Accompanied by: Self / Same As Patient Allergies No Known Allergies (No Known Allergies*) Allergy (Verified 04/04/25 14:10) Fall risk assessment: 2 + Falls in past year Last assessed Fall Risk: 04/04/25 HPI HPI Comments History of Present Illness Details The patient is a 69-year-old female presenting with blood pressure management concerns and chronic pain secondary to scoliosis and vertebral collapse. The patient reports a history of fluctuating blood pressure, with incidents of significant hypotension causing her to fall at home on six to eight occasions this past spring. She required observation at an external facility twice during this period. She takes Midodrine twice daily to address the hypotensive episodes but is also prescribed Metoprolol for a sustained fast heart rate, creating a paradox where medications with opposing effects are being administered. Her scoliosis has exacerbated following the vertebral collapse, contributing to constant pain in her torso and back. The patient describes this pain as severe enough to reduce energy levels and affect her mobility. Her migraines, initially managed with divalproex, are now controlled using Amitriptyline and Emgality, given monthly. She anticipates a follow-up with a neurosurgeon next month for further evaluation. Medical History: - Hypertension - Hypotension, requiring Midodrine for r ecurrent episodes - Scoliosis, worsened by vertebral colla pse - Migraine - Hyperlipidemia Surgical History: - Benign breast biopsy, approximately 10 years ago - Right rotator cuff repair, approximate ly 8 years ago Medications: - Amitriptyline for migraine prevention - Emgality for migraine prevention - Midodrine for hypotension - Metoprolol for tachycardia (to hold of f per current instructions) Family History: - Father with non-Hodgkin's lymphoma - No family history of heart disease, di abetes, or other cancers besides the father's lymphoma Social: - Non-smoker - Denies alcohol, marijuana, and illicit drug use - for 47 years - Dependent on for transportatio n following blood pressure-related falls [facility] Medical History (Updated 04/04/25 @ 14:42 by Vincent Ghosh MD) Migraine Hyperlipidemia Hypertension History of inguinal hernia Surgical History History of breast lump/mass excision (10/06/22) History of repair of right rotator cuff (2003) History of breast biopsy (2005) History of section (1989) Family History Father Non-Hodgkin lymphoma Social History Housing: House Unable to assess alcohol history related to: Unknown Alcohol intake: never Patient Tobacco Use Status: Never used Tobacco e-Cigarette/Vaping Use: Never Used service: No Current occupational status: retired Questionnaire PHQ-9 Over the last 2 weeks, how often have you been bothered by any of the following problems? 1. Little interest or pleasure in doing things: not at all 2. Feeling down, depressed, or hopeless: not at all 3. Trouble falling or staying asleep, or sleeping too much: not at all 4. Feeling tired or having little energy: not at all 5. Poor appetite or overeating: not at all 6. Feeling bad about yourself - or that you are a failure or have let yourself or your family down: not at all 7. Trouble concentrating on things, such as reading the newspaper or watching television: not at all 8. Moving or speaking so slowly that other people could have noticed. Or the opposite - being so fidgety or restless that you have been moving around a lot more than usual: not at all 9. Thoughts that you would be better off or of hurting yourself in some way: not at all Total score: 0 Depression Screening Interpretation: Negative Depression Screening Done: Yes 27354 - PHQ-9 Billing: Yes Source: Developed by Drs. Kermit Brown, Gudelia Mathias, Nate Medel and colleagues, with an educational cheli from [employer]. Thrive Questionnaire Date Thrive assessed: 04/04/25 I am a: Patient What is your living situation today?: I have a steady place to live Within the past 12 months, did the food you bought not last and you didn't have the money to get more?: Never true Within the past 12 months, did you worry whether your food would run out before you got money to buy more?: Never true Do you have trouble paying for medicines?: No Do you have trouble getting transportation to medical appointments?: No Do you have trouble paying your heating and electricity bill?: No Do you have trouble taking care of your child, family member or friend?: No Do you have trouble with day-to-day activities such as bathing, preparing meals, shopping, managing finances, etc.?: No Are you currently unemployed and looking for a job?: No Are you interested in more education?: No THRIVE Score: 0 AUDIT C Alcohol Use Questionnaire (AUDIT-C) 1. How often do you have a drink containing alcohol?: Never 3. How often do you have six or more drinks on one occasion?: Never Total Score: 0 TRAY-7 AMB Questionnaire TRAY-7 Date TRAY - 7 assessed: 04/04/25 Feeling nervous, anxious, or on edge: 0 = Not at all Not being able to stop or control worryin = Not at all Worrying too much about different things: 0 = Not at all Trouble relaxin = Not at all Being so restless that it is hard to sit still: 0 = Not at all Becoming easily annoyed or irritable: 0 = Not at all Feeling afraid as if something awful might happen: 0 = Not at all Total TRAY-7 score (0-4 normal; 5-9 mild; 10-14 moderate; 15-21 severe): 0 Source: Developed by Drs. Kermit Brown, Gudelia Mathias, Nate Medel and colleagues, with an educational cheli from [employer]. TRAY-7 Assessment Billing TRAY-7 Assessment Tool: TRAY-7 Assessment 00530 Review of Systems Const Details: - Cardiovascular: Reports fluctuating blood pressure - Neurological: Reports migraines - Musculoskeletal: Reports chronic pain in torso and back, worsened by scoliosis and vertebral collapse - Respiratory: Denies shortness of breath - Gastrointestinal: Denies nausea and vomiting - General: Reports low energy, impacted by pain - Psychological: Denies depression or anxiety All systems reviewed & are unremarkable except as noted in HPI and below Physical exam (Primary Care) Vital Signs: Last Vital Signs Temp 98.4 F 04/04/25 14:16 Pulse 85 04/04/25 14:16 Resp 16 04/04/25 14:16 BP 140/74 H 04/04/25 14:16 Pulse Ox 98 04/04/25 14:16 Oxygen Delivery Method Room Air 04/04/25 14:16 BMI result Body Mass Index 18.8 Tobacco/Smoking Status: Tobacco use Status Patient Tobacco Use Status Never used Tobacco 04/04/25 14:20 e-Cigarette/Vaping Use Never Used 04/04/25 14:20 Depression Screening Interpretation: Negative Const Other: General: Alert and oriented, Well nourished, No acute distress. Eye: Pupils are equal, round and reactive to light, Intact accommodation, Extraocular movements are intact, Normal conjunctiva, Vision unchanged. HENT: Normocephalic, Atraumatic, Tympanic membranes are clear, Normal hearing, Oral mucosa is moist, No pharyngeal erythema, Ear canals patent. Respiratory: Lungs CTA bilaterally, No wheeze, Respirations are non-labored, but patient reports significant pain when coughing or sneezing due to scoliosis. Cardiovascular: Regular rate, Regular rhythm, S1 auscultated, S2 auscultated, No murmur, Good pulses equal in all extremities, Normal peripheral perfusion, No edema. Gastrointestinal: Soft, Non-tender, Non-distended, Normal bowel sounds, No organomegaly. Musculoskeletal: Normal range of motion, Normal strength, No tenderness, No swelling, No deformity, Normal gait, but significant dip noted towards the right on the back due to scoliosis. Integumentary: Warm, Dry, [place], Intact. Neurologic: Alert, Oriented, Normal sensory, Normal motor function, No focal defects, Cranial Nerves II-XII are grossly intact, Normal deep tendon reflexes. Psychiatric: Cooperative, Appropriate mood & affect, Normal judgment, reports low energy due to pain. Coding Level of Care Code New Pt Level 4 (53363) New Pt Prev Care >65yr (09626) Diagnoses Hypertension, unspecified type I10 Hypertension type: unspecified Hyperlipidemia, unspecified hyperlipidemia type E78.5 Hyperlipidemia type: unspecified Migraine G43.909 Migraine type: unspecified Back Pain M54.9 Orthostatic hypotension I95.1 Hypotension type: orthostatic hypotension Additional Codes PHQ-9 - 52099 - PHQ-9 Billing: Yes ([id number]) TRAY-7 Assessment Billing - TRAY-7 Assessment Tool: TRAY-7 Assessment 40222 ([id number]) Assessment & Plan Assessment & Plan (1) Hypertension: Comment: Previously had hypertension and was being managed with metoprolol succinate. However had multiple episodes of hypotension and was initiated on midodrine at [facility] therefore Directed to hold Metoprolol temporarily due to its counteraction with Midodrine. Advised to monitor blood pressure and heart rate at home and document findings. - Plan for follow-up appointment in one month to reassess the need for Metoprolol. Code(s): I10 - Essential (primary) hypertension Category: Medical Qualifiers: Hypertension type: unspecified Qualified Code(s): I10 - Essential (primary) hypertension (2) Hyperlipidemia: Comment: - Continue Atorvastatin - Order lipid Panel Code(s): E78.5 - Hyperlipidemia, unspecified Category: Medical Qualifiers: Hyperlipidemia type: unspecified Qualified Code(s): E78.5 - Hyperlipidemia, unspecified (3) Migraine: Comment: - Continue with current therapies: Amitriptyline and Emgality. - Monitor effectiveness and side effects. Code(s): G43.909 - Migraine, unspecified, not intractable, without status migrainosus Category: Medical Qualifiers: Migraine type: unspecified (4) Back Pain: Code(s): M54.9 - Dorsalgia, unspecified Plan: - Has extensive scolisosis resulting in pain - Being followed by neurosurgery with plans for intervention. WIll f/u after (5) Hypotension: Code(s): I95.9 - Hypotension, unspecified Qualifiers: Hypotension type: orthostatic hypotension Qualified Code(s): I95.1 - Orthostatic hypotension Plan: Initated on midodrine Plan 5. Preventive Health Maintenance - Ensure follow-up for upcoming mammogram. - Scheduled colonoscopy for periodic review. During the consultation, we discussed the complexity of managing conditions of hypertension and hypotension concurrently. I recommended pausing Metoprolol treatment temporarily to evaluate its necessity in the context of current treatment with Midodrine, which could exacerbate hypotensive episodes. I emphasized the importance of monitoring and charting blood pressure and heart rate, with a follow-up planned in one month. The pain from scoliosis and vertebral collapse will be further evaluated by a neurosurgeon, and we discussed potential benefits from pain management interventions if needed. We also talked about recommended health maintenance activities, including a mammogram and a follow-up colonoscopy. Orders: Orders Hemoglobin A1c Today E78.5 - Hyperlipidemia, unspecified, I10 - Essential (primary) hypertension Hepatitis A,B,C Profile Today E78.5 - Hyperlipidemia, unspecified, I10 - Essential (primary) hypertension HIV Ab/Ag Today E78.5 - Hyperlipidemia, unspecified, I10 - Essential (primary) hypertension Lipid Panel Today E78.5 - Hyperlipidemia, unspecified, I10 - Essential (primary) hypertension Vitamin D 25-OH Total Today E78.5 - Hyperlipidemia, unspecified, I10 - Essential (primary) hypertension Complete Blood Count Auto Diff Today E78.5 - Hyperlipidemia, unspecified, I10 - Essential (primary) hypertension Comprehensive Met. Panel Today E78.5 - Hyperlipidemia, unspecified, I10 - Essential (primary) hypertension Syphilis Screen Today E78.5 - Hyperlipidemia, unspecified, I10 - Essential (primary) hypertension TSH reflex Free T4 Today E78.5 - Hyperlipidemia, unspecified, I10 - Essential (primary) hypertension Patient Instructions: - Hold the Metoprolol and take Midodrine as prescribed. - Track and log your blood pressure and heart rate daily. - Attend the upcoming mammogram appointment. - Follow up with the neurosurgeon as scheduled. - Return to clinic in one month for blood pressure and heart rate evaluation.
[2025-04-04 14:16] VITALS: BP 140/74; PULSE 85; RESP 16; TEMP 36.9; O2SAT 98; BMI 18.8
--- OUTSIDE RECORDS SUMMARY | 2025-04-04 16:26 | XMS_ITS | Encounter Summary ---
Author Organization [facility] Address [address] [place] [phone] Phone Care Team Providers Care Laboratory Director Name Role Phone Mary Rush MD Ba Ugarte MD Primary Care Provider [phone] Reason for Referral * MRI/CAT Scan - Closed Specialty Diagnoses / Procedures Referred By Contac t Referred To Contact Radiology Diagnoses Abnormal chest sounds Procedures CT Angio Chest Ba Ugarte MD [address] [place] [address] Dr CARO [address] [place], [place] [address], [place] [address] Phone: tel: fax: Referral ID Status Reason Start Date Expiration Date Visits Re quested Visits Authorized [id number] Closed 06/02/2019 06/01/2020 1 1 Encounter Details Date Type Department Care Team (Late st Contact Info) Description 06/02/2019 Ancillary Orders Virtual Department [address] [place] [id number] Ba Ugarte MD [address] [place] [address] Dr MELISSA MD [id number] Abnormal chest sounds Social History Tobacco Use Types Packs/Day Years Used Date Smoking Tobacco: Never Comments Unknown Sex and Gender Information Value Date Recorded Sex Assigned at Not on file Legal Sex Female 8:00 PM EST Gender Identity Not on file Sexual Orientation Not on file documented as of this encounter Plan of Treatment Upcoming Encounters Date Type Department Care Team (Late st Contact Info) Description 07/30/2025 9:00 AM EST Office Visit [facility] Neurology [address] [place] [id number] Dilan Ugarte MD [address] [facility], [address]nd [place] [address] [email or web address] documented as of this encounter Results * CT ANGIO CHEST WITH AND WITHOUT CONTRAST (06/13/2019 3:36 PM EST) Anatomical Region Laterality Modality Chest, Thoracic Vasculature Comp uted Tomography 06/13/2019 4:35 PM EST Impressions 06/13/2019 4:43 PM EST No evidence of aortic or great vessel stenosis, aneurysm or dissection. No source of the abnormal sounds is seen. No evidence of aneurysm TOTAL CTDIvol: 137 mGy POS - [id number] Narrative 06/13/2019 4:43 PM EST HISTORY: Abnormal chest sounds. Upper chest bruit. Suspected dissection. COMPARISON: None TECHNIQUE: High density intravenous contrast is then administered and scanning obtained from lung apex to base. Multiplanar reformats and 3-D vascular reformats generated on the scanner. Study is performed without breath hold, decreasing sensitivity and specificity in the lungs. Automated exposure control utilized. FINDINGS: Cardiovascular: Pulmonary arterial and aortic opacification is excellent. There is no evidence of aortic or great vessel dissection, aneurysm, or high-grade stenosis. No evidence of pulmonary emboli. No pericardial effusion. There is tortuosity of the proximal brachiocephalic artery. Whether this might be a source of bruit is not known but it is not dilated or stenotic. Lungs and pleura: There is some borderline bronchiectatic changes and a few areas of mucus in right middle lobe bronchi but no clearly suspicious nodules are seen. No central airway lesion. No pleural effusion. No significant atelectatic change or interstitial findings. Some minimal scarring or atelectatic change is noted at the apex of the right major fissure. Nodes: No adenopathy is detected. Soft tissue and mediastinum: Small lateral hernia. No findings of concern. Upper abdomen: Small cyst peripherally off the spleen. No worrisome lesions identified in the udmah-jo-grof. Bones: Some scoliosis and kyphosis noted. Trace midthoracic wedging but no pronounced compression deformities or bony destructive lesions are identified. Procedure Note Neena Woo MD - 06/13/2019 HISTORY: Abnormal chest sounds. Upper chest bruit. Suspected dissection. COMPARISON: None TECHNIQUE: High density intravenous contrast is then administered andscanning obtained from lung apex to base. Multiplanar reformats and 3-Dvascular reformats generated on the scanner. Study is performed withoutbreath hold, decreasing sensitivity and specificity in the lungs.Automated exposure control utilized. FINDINGS: Cardiovascular: Pulmonary arterial and aortic opacification is excellent.There is no evidence of aortic or great vessel dissection, aneurysm, orhigh-grade stenosis. No evidence of pulmonary emboli. No pericardialeffusion. There is tortuosity of the proximal brachiocephalic artery.Whether this might be a source of bruit is not known but it is not dilatedor stenotic. Lungs and pleura: There is some borderline bronchiectatic changes and afew areas of mucus in right middle lobe bronchi but no clearly suspiciousnodules are seen. No central airway lesion. No pleural effusion. Nosignificant atelectatic change or interstitial findings. Some minimalscarring or atelectatic change is noted at the apex of the right majorfissure. Nodes: No adenopathy is detected. Soft tissue and mediastinum: Small lateral hernia. No findings ofconcern. Upper abdomen: Small cyst peripherally off the spleen. No worrisomelesions identified in the evyah-ha-rjry. Bones: Some scoliosis and kyphosis noted. Trace midthoracic wedging but nopronounced compression deformities or bony destructive lesions areidentified. IMPRESSION: No evidence of aortic or great vessel stenosis, aneurysm or dissection. Nosource of the abnormal sounds is seen. No evidence of aneurysm TOTAL CTDIvol: 137 mGy POS - [id number] us Ba Ugarte MD IMG CT CHEST Final Resul t documented in this encounter Visit Diagnoses Diagnosis Abnormal chest sounds Abnormal chest sounds documented in this encounter Additional Health Concerns Assessment Noted Time PHQ-2 Depression Total Score: 0 03/04/20 16 9:33 AM EDT documented as of this encounter Care Teams Laboratory Director Relationship Specialty Start Date End Date Ba Ugarte MD [address] [place] [address] [place] [id number] PCP - General Internal Medicine 09/21/17 Mary Rush MD Historical LMR Provider 12/15/14 08/09/21 documented as of this encounter Additional Source Comments The information contained in this document represents components of the legal health record. It is not the complete legal health record.[facility]
--- OUTSIDE RECORDS SUMMARY | 2025-04-04 16:26 | XMS_ITS | Encounter Summary ---
Author Organization [facility] Address [address] [place] [phone] Phone Care Team Providers Care Force Adjustment Supervisor Name Role Phone Mary Rush MD, Andrew Seth MD Primary Care Provider [phone] Encounter Details Date Type Department Care Team (Late st Contact Info) Description 06/07/2019 Transcribe Orders [facility] Laboratory [address] [place] [address] Ba Ugarte MD [address] [place] [address] [address] Encounter for hydration prior to CT scan (Primary Dx); High cholesterol Social History Tobacco Use Types Packs/Day Years [...] Description 07/30/2025 9:00 AM EST Office Visit [facility] Neurology [address] [place] [address] Dilan Ugarte MD [address] [facility]nd [place] [address] [email or web address] documented as of this encounter Procedures Procedure Name Priority Date/Time Associated Diagnosis Comments CREATININE/EGFR Routine 06/07/2019 7:17 AM EST Encounter for hydration prior to CT scan High cholesterol BUN Routine 06/07/2019 7:17 AM EST Encounter for hydration prior to CT scan High cholesterol documented in this encounter Results * (ABNORMAL) Creatinine/eGFR (06/07/2019 7:17 AM EST) CREATININE <0.50(L) 0.5 - 1.5 mg/dL [facility] EGFR Not Done >59 mL/min/1.73 m2 [facility] Blood 06/07/2019 7:17 AM EST 06/07/2019 7:19 AM EST us Ba Ugarte MD LAB BLOOD ORDERABLES Final Result Performing Organization Address City/[facility]/ZIP Co de Phone Number [address] [address] * BUN (06/07/2019 7:17 AM EST) BUN 14 6 - 19 mg/dL [facility] Blood 06/07/2019 7:17 AM EST 06/07/2019 7:19 AM EST us Ba Ugarte MD LAB BLOOD ORDERABLES Final Result [address] [address] documented in this encounter Visit Diagnoses Diagnosis Encounter for hydration prior to CT scan- Primary High cholesterol Pure hypercholesterolemia documented in this encounter Additional Health Concerns Assessment Noted Time PHQ-2 Depression Total Score: 0 03/04/20 16 9:33 AM EDT documented as of this encounter Care Teams Force Adjustment Supervisor Relationship Specialty Start Date End Date Ba Ugarte MD [address] [place] [address] [address] [place] [address] PCP - General Internal Medicine 09/21/17 Mary Rush MD Historical LMR Provider 12/15/14 08/09/21 documented as of this encounter Additional Source Comments The information contained in this document represents components of the legal health record. It is not the complete legal health record.[facility]
--- OUTSIDE RECORDS SUMMARY | 2025-04-04 16:26 | XMS_ITS | Encounter Summary ---
Author Organization [facility] Address [address] [place] [address] Phone Care Team Providers Care Parking Enforcement Specialist Name Role Phone Mary Rush MD, Andrew Seth MD Primary Care Provider [phone] Encounter Details Date Type Department Care Team (Latest Contact Info) Description 10/21/[address] [facility] Laboratory [address] [place] [address] Satya Cantu MD [address] [place] [address], [address] [place] [address] [email or web address] Other headache syndrome (Primary Dx) Social History Tobacco Use Types Packs/Day Years [...] Description 07/30/2025 9:00 AM EST Office Visit [facility] Neurology [address] [place] [address] Dilan Ugarte MD [address] [place] [address], 2nd [address] [place], [place] [id number] [email or web address] documented as of this encounter Results * LFTs (hepatic panel) (10/21/2018 10:34 AM EDT) ALKALINE PHOSPHATASE 42 39 - 117 U/L [facility] TOTAL BILIRUBIN 0.2 0.0 - 1.2 mg/dL [facility] Comment: Results from certain multiple myeloma patients may show a positive bias in recovery. Not all multiple myeloma patients show the bias and severity of the bias may vary between patients. In very rare cases, gammopathy, in particular type IgM (Waldenstrom's macroglobulinemia), may cause unreliable results. DIRECT BILIRUBIN <0.2 0 - 0.3 mg/dL [facility] Bilirubin (Indirect) NOT CALCULATED 0 - 1.5 mg/dL [facility] AST 29 0 - 37 U/L [facility] ALT 22 0 - 40 U/L [facility] TOTAL PROTEIN 6.7 6.5 - 8.0 g/dL [facility] ALBUMIN 4.1 3.9 - 4.8 g/dL [facility] GLOBULIN 2.6 1 - 4.8 g/dL [facility] A/G Ratio 1.58 1.00 - 4.80 RATIO [facility] Blood 10/21/2018 10:3 4 AM EDT 10/21/2018 10:37 AM EDT us Satya Cantu MD LAB BLOOD ORDERABLES Final R esult Performing Organization Address City/State/[facility] Co de Phone Number [address] [address] documented in this encounter Visit Diagnoses Diagnosis Other headache syndrome- Primary documented in this encounter Additional Health Concerns Assessment Noted Time PHQ-2 Depression Total Score: 0 03/04/20 16 9:33 AM EDT documented as of this encounter Care Teams Parking Enforcement Specialist Relationship Specialty Start Date End Date Ba Ugarte MD [address] [place] [address] [place] [address] PCP - General Internal Medicine 09/21/17 Mary Rush MD Historical LMR Provider 12/15/14 08/09/21 documented as of this encounter Additional Source Comments The information contained in this document represents components of the legal health record. It is not the complete legal health record.[facility]
--- OUTSIDE RECORDS SUMMARY | 2025-04-04 16:26 | XMS_ITS | Encounter Summary ---
Author Organization [facility] Address [address] [place] [address] Phone Care Team Providers Care Global Risk Management Director Name Role Phone Mary Rush MD, Andrew Seth MD Primary Care Provider [phone] Encounter Details Date Type Department Care Team (Late st Contact Info) Description 10/26/2018 Ancillary Orders Virtual Department 30 [place] [address] Satya Cantu MD [address] [place] [address], [address] [place] [address] [email or web address] Neck pain Social History Tobacco Use Types Packs/Day Years [...] Description 07/30/2025 9:00 AM EST Office Visit [facility] Neurology [address] [place] [address] Dilan Ugarte MD [address] [place] [address], 2nd [place] [address] [email or web address] documented as of this encounter Results * XR CERVICAL SPINE 4-5 VIEWS (10/27/2018 10:09 AM EDT) Anatomical Region Laterality Modality C-spine Radiographic Nellie ging 10/27/2018 10:4 1 AM EDT Impressions 10/27/2018 1:24 PM EDT Scoliosis with minor facet degenerative change. POS - [id number] Edited by: Ingrid Olsen on 10/27/2018 10:49 AM Narrative 10/27/2018 1:24 PM EDT Five view cervical spine series. No prior. There is scoliosis convex left apex C4-5. Vertebral body height appears maintained. Disc heights appear maintained. No bony neural from encroachment. Minor facet degenerative change across C4-5 and C5-6 on the inside portion of the curve. No marked hypertrophic changes. Prominent C7 transverse processes. C1-2 alignment appears preserved and dens appears intact. Procedure Note Neena Woo MD - 10/27/2018 Five view cervical spine series. No prior. There is scoliosis convex leftapex C4-5. Vertebral body height appears maintained. Disc heights appearmaintained. No bony neural from encroachment. Minor facet degenerativechange across C4-5 and C5-6 on the inside portion of the curve. No markedhypertrophic changes. Prominent C7 transverse processes. C1-2 alignmentappears preserved and dens appears intact. IMPRESSION: Scoliosis with minor facet degenerative change. POS - [id number] Edited by: Ingrid Olsen on 10/27/2018 10:49 AM us Satya Cantu MD IMG XR SPINE Final Result documented in this encounter Visit Diagnoses Diagnosis Neck pain Cervicalgia Neck pain Cervicalgia documented in this encounter Additional Health Concerns Assessment Noted Time PHQ-2 Depression Total Score: 0 03/04/20 16 9:33 AM EDT documented as of this encounter Care Teams Global Risk Management Director Relationship Specialty Start Date End Date Ba Ugarte MD [address] [place] [address] Dr [place] [address] PCP - General Internal Medicine 09/21/17 Mary Rush MD Historical LMR Provider 12/15/14 08/09/21 documented as of this encounter Additional Source Comments The information contained in this document represents components of the legal health record. It is not the complete legal health record.[facility]
--- OUTSIDE RECORDS SUMMARY | 2025-04-04 16:26 | XMS_ITS | Encounter Summary ---
Author Organization [facility] Address [address] [place] [address] Phone Care Team Providers Care Events Specialist Name Role Phone Mary Rush MD, Andrew Seth MD Primary Care Provider [phone] Encounter Details Date Type Department Care Team (Late st Contact Info) Description 08/24/2018 Ancillary Orders Virtual Department 30 [place] [address] Ba Ugarte MD [address] [place] [address] Carotid bruit, unspecified laterality Social History Tobacco Use Types Packs/Day Years [...] Description 07/30/2025 9:00 AM EST Office Visit [facility] Neurology [address] [place] [address] Dilan Ugarte MD 22 [facility], 2nd [place] [address] [email or web address] documented as of this encounter Results * US Carotid Duplex (Bilateral) (08/25/2018 1:39 PM EST) Anatomical Region Laterality Modality Heart, Thoracic Vasculature, Neck Ultrasound 08/25/2018 1:41 PM EST Impressions 08/25/2018 1:46 PM EST 1. No evidence of significant stenosis on the right; no clear source of bruit. 2. Mildly elevated peak systolic velocity in the left ICA probably artifact due to tortuosity and turbulence rather than 50-69% stenosis. If it were clinically essential to confirm or exclude moderate stenosis, CTA or MRA would be appropriate. CAROTID STENOSIS REFERENCE USING NASCET CRITERIA: % ICA stenosis = (1 - narrowest ICA diameter/diameter of distal cervical ICA) x 100. Mild - < 50% stenosis. Moderate - 50-69% stenosis. Severe - 70-94% stenosis. Near occlusion - 95-99% stenosis. Occluded - 100% stenosis. POS [email or web address] Narrative 08/25/2018 1:46 PM EST No comparison The real-time shows a minimal amount of calcified plaque in the bulb on the right which does not extend into the ICA. On the left there is minimal soft plaque in the bulb which does extend slightly into the ICA. The peak systolic velocity in the right ICA is about 101 cm/s with normal systolic and diastolic ratios. This corresponds to less than 50% stenosis relative to distal ICA diameter. The peak systolic velocity in the left ICA reaches 136 cm/s. Normal systolic ratio (1.5) but borderline elevated diastolic ratio (2.1). Technically this combination of findings lies in the 50-69% stenosis range but when compared to the real-time exam it seems unlikely there is a significant stenosis and the elevated systolic velocity is more likely due to tortuosity and turbulence from the small amount of soft plaque. Antegrade flow is seen in both vertebral arteries. Procedure Note Cory Sanders MD - 08/25/2018 No comparison The real-time shows a minimal amount of calcified plaque in the bulb onthe right which does not extend into the ICA. On the left there is minimalsoft plaque in the bulb which does extend slightly into the ICA. The peak systolic velocity in the right ICA is about 101 cm/s with normalsystolic and diastolic ratios. This corresponds to less than 50% stenosisrelative to distal ICA diameter. The peak systolic velocity in the left ICA reaches 136 cm/s. Normalsystolic ratio (1.5) but borderline elevated diastolic ratio (2.1).Technically this combination of findings lies in the 50-69% stenosis rangebut when compared to the real-time exam it seems unlikely there is asignificant stenosis and the elevated systolic velocity is more likely dueto tortuosity and turbulence from the small amount of soft plaque. Antegrade flow is seen in both vertebral arteries. IMPRESSION: 1. No evidence of significant stenosis on the right; no clear source ofbruit. 2. Mildly elevated peak systolic velocity in the left ICA probablyartifact due to tortuosity and turbulence rather than 50-69% stenosis. Ifit were clinically essential to confirm or exclude moderate stenosis, CTAor MRA would be appropriate. CAROTID STENOSIS REFERENCE USING NASCET CRITERIA: % ICA stenosis = (1 - narrowest ICA diameter/diameter of distal cervicalICA) x 100. Mild - < 50% stenosis. Moderate - 50-69% stenosis. Severe - 70-94% stenosis. Near occlusion - 95-99% stenosis. Occluded - 100% stenosis. POS [email or web address] Ba Ugarte MD [facility] NEUROVASCULAR Final R esult documented in this encounter Visit Diagnoses Diagnosis Carotid bruit, unspecified laterality Carotid bruit, unspecified laterality documented in this encounter Additional Health Concerns Assessment Noted Time PHQ-2 Depression Total Score: 0 03/04/20 16 9:33 AM EDT documented as of this encounter Care Teams Events Specialist Relationship Specialty Start Date End Date Ba Ugarte MD [address] [place] [address] Dr M[place], [place] [address] PCP - General Internal Medicine 09/21/17 Mary Rush MD Historical LMR Provider 12/15/14 08/09/21 documented as of this encounter Additional Source Comments The information contained in this document represents components of the legal health record. It is not the complete legal health record.[facility]
--- OUTSIDE RECORDS SUMMARY | 2025-04-04 16:26 | XMS_ITS | Patient Health Record ---
Author Organization [facility] Address [address] [place] [address] Care Team Providers Care Scientific Programmer Analyst Name Role Phone Ba Ugarte MD Primary Care Provider Unavailab Viviana Briscoe Unavailable [phone] Reason For Referral No Information Medications Medication [...] Risk Notes Problem Stress fracture of foot (778165530) Stress fracture, left foot, subsequent encounter for fracture with delayed healing (M84.375G) Active confirmed Plan Of Treatment Pending Test Test Name Order Date X ray : Foot, left 3V 03/01/2018 X ray : Foot, left 3V 03/29/2018 Insurance Providers Payer Name Payer Address Payer Phone Subscriber Number Group Number Insured Name Patient Relationship to Insured Coverage Start Date Coverage End Date [facility] All Others [address] [place] [address] [phone] [id number] Nadia Antunez Self - patient is the insured [facility] [address] [place] [address] [phone] [id number] Nadia Antunez Self - patient is the insured Medical (General) History Medical History History ICD Code Cholesterol Headaches Measles Mumps Chicken pox Surgical History Surgery Date(Month/Year) rotator cuff tear repair 09/2013 hernia 1998 08/1989 breast surgery 12/2013
--- OUTSIDE RECORDS SUMMARY | 2025-04-04 16:26 | XMS_ITS | Clinical Summary ---
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); Thoracic myelopathy from Last 3 Months Immunizations Immunization Administration [...] Description 07/30/2025 9:00 AM EST [facility] [address] [place] [address] Dilan Ugarte MD 22 [facility], 2nd [place] [address] [email or web address] Health Maintenance Due Date Last Done Comments [...] 2024 04/24/2023, 11/26/2022, 04/08/2022, Additional history exists INFLUENZA VACCINE (#1) 2025 , 04/08/2022, 04/12/2021, Additional history exists Adult Td,Tdap Booster 03/25/2029 [...] topic Medical Devices Not on file [place] [place] [address] MEDICARE REPLACEMENT [facility] MEDICARE REPLACEMENT [facility] MEDICARE REPLACEMENT MEDICARE REPLACEMENT Care Teams Rn Baby Relationship Specialty Start Date End Date Ba Ugarte MD [address] [place] [address] [place] [address] PCP - General Internal Medicine 09/21/17 Additional Source Comments The information contained in this document represents components of the legal health record. It is not the complete legal health record.[facility]
--- OUTSIDE RECORDS SUMMARY | 2025-04-04 16:26 | XMS_ITS | Encounter Summary ---
Author Organization [facility] Address [address] [place] [address] Phone Care Team Providers Care Librarian Specialist Name Role Phone Mary Rush MD, Andrew Seth MD Primary Care Provider [phone] Encounter Details Date Type Department Care Team (Latest Contact Info) Description 09/21/2017 Transcribe Orders [facility] Laboratory [address] [place] [address] Jaqueline Shook ARNP Physical exam, pre-employment (Primary Dx) Social History Tobacco Use Types [...] 07/30/2025 9:00 AM EST Office Visit [facility] Neurology [address] [place] [address] Dilan Ugarte MD 22 [facility], 2nd [place] [address] documented as of this encounter Results * Varicella-zoster (VZV) antibody, IgG (09/21/2017 10:43 AM EST) Varicella Ab(s) Positive Positive [facility] Blood (Blood) 09/21/2017 10: 43 AM EST 09/21/2017 10:45 AM EST Jaqueline RENE NON CULTURE MICROBIOLOGY Fi nal Result Performing Organization Address [facility]/ZIP Co de Phone Number [address] [address] * Rubella antibody, IgG (09/21/2017 10:43 AM EST) Rubella Ab, IgG Positive Positive [facility] Blood (Blood) 09/21/2017 10: 43 AM EST 09/21/2017 10:45 AM EST Jaqueline RENE NON CULTURE MICROBIOLOGY Fi nal Result Performing Organization Address [facility] Co de Phone Number [address] [address] * Mumps antibody, IgG (09/21/2017 10:43 AM EST) MUMPS IGG AB Positive Positive [facility] Blood (Blood) 09/21/2017 10: 43 AM EST 09/21/2017 10:45 AM EST Jaqueline RENE NON CULTURE MICROBIOLOGY Fi nal Result Performing Organization Address [facility] Co de Phone Number [address] [address] * Measles antibody, IgM (09/21/2017 10:43 AM EST) MEASLES IGM AB Negative Negative [facility] Blood 09/21/2017 10:4 3 AM EST 09/21/2017 10:46 AM EST us Jaqueline A Shook VEGETABLE COOK NON CULTURE MICROBIOLOGY Fi nal Result [facility] [place] [address] documented in this encounter Visit Diagnoses Diagnosis Physical exam, pre-employment- Primary Health examination of defined subpopulation documented in this encounter Additional Health Concerns Assessment Noted Time PHQ-2 Depression Total Score: 0 03/04/20 16 9:33 AM EDT documented as of this encounter Care Teams Librarian Specialist Relationship Specialty Start Date End Date Ba Ugarte MD [address] [place] [address] [address] [place] [address] PCP - General Internal Medicine 09/21/17 Mary Rush MD Historical LMR Provider 12/15/14 08/09/21 documented as of this encounter Additional Source Comments The information contained in this document represents components of the legal health record. It is not the complete legal health record.[facility]
--- OUTSIDE RECORDS SUMMARY | 2025-04-04 16:26 | XMS_ITS | Encounter Summary ---
Author Organization [facility] Address [address] [place] [address] Phone Care Team Providers Care Medical Office Rep Name Role Phone Dale Bazan MD Primary Care Provider [phone] Mary Rush MD, Andrew Seth MD Primary Care Provider [phone] Encounter Details Date Type Department Care Team (Late Contact Info) Description 03/26/2016 Documentation [facility] Neurology at [address] [address] Jeevan Mujica [address] [place] [address] Social History Tobacco Use Types Packs/Day Years Used Date Smoking Tobacco: Never Comments Unknown Sex and Gender Information Value Date Recorded Sex Assigned at Not on file Legal Sex Female 8:00 PM EST Gender Identity Not on file Sexual Orientation Not on file documented as of this encounter Plan of Treatment Upcoming Encounters Date Type Department Care Team (Late Contact Info) Description 07/30/2025 9:00 AM EST Office Visit [facility] Neurology [address] [place] [address] Dilan Ugarte MD [address] [place] [address], [address] [place] [address] [email or web address] documented as of this encounter Visit Diagnoses Not on filedocumented in this encounter Additional Health Concerns Assessment Noted Time PHQ-2 Depression Total Score: 0 03/04/20 16 9:33 AM EDT documented as of this encounter Care Teams Medical Office Rep Relationship Specialty Start Date End Date Dale Bazan MD [address] [place] [address] Dr [place] [address] PCP - General 12/06/14 09/20/17 Ba Ugarte MD [address] [place] [address] [place] [facility] [address] PCP - General Internal Medicine 09/21/17 Mary Rush MD Historical LMR Provider 12/15/14 08/09/21 documented as of this encounter Additional Source Comments The information contained in this document represents components of the legal health record. It is not the complete legal health record.[facility]
== END 2025-04-04 15:18 | disposition home or self-care (01) ==
LOC: HO.HMCHD 14:09
PROVIDERS: PCP Student in an Organized Health Care Education/Training Program; Visit Provider Student in an Organized Health Care Education/Training Program
DX: Z00.00 Encounter for general adult medical examination without abnormal findings (principal); I10 Essential (primary) hypertension; E78.5 Hyperlipidemia, unspecified; G43.909 Migraine, unspecified, not intractable, without status migrainosus; M54.9 Dorsalgia, unspecified; I95.1 Orthostatic hypotension

== ENCOUNTER → 2025-04-04 14:08 | Outpatient (BNVA) | payer MEDICARE, SELFPAY | PROVIDERS: PCP Family Medicine; Visit Provider Student in an Organized Health Care Education/Training Program | DX: Z00.00 Encounter for general adult medical examination without abnormal findings (principal); I10 Essential (primary) hypertension; E78.5 Hyperlipidemia, unspecified; M54.9 Dorsalgia, unspecified; G43.909 Migraine, unspecified, not intractable, without status migrainosus; I95.1 Orthostatic hypotension; Z79.899 Other long term (current) drug therapy | CPT/HCPCS: 96127; 99202; 99387 ==

== ENCOUNTER 2025-04-17 09:51 | Outpatient (REF) | payer MEDICARE, SELFPAY ==
--- OUTSIDE RECORDS SUMMARY | 2025-04-17 12:43 | XMS_ITS | Encounter Summary ---
Author Organization [facility] Address [address] [place] [address] Phone Care Team Providers Care Contract Accountant Name Role Phone Mary Rush MD, Andrew Seth MD Primary Care Provider [phone] Encounter Details Date Type Department Care Team (Late st Contact Info) Description 08/24/2018 Ancillary Orders Virtual Department [address] [place] [address] Ba Ugarte MD [address] [place] [address] Carotid bruit, unspecified laterality Social History Tobacco [...] Visit [facility] Neurology [address] [place] [address] Dilan Ugarte MD 22 [facility], 2nd [place] [address] [email or web address] documented as of this encounter Results * [...] 100% stenosis. POS [id number] Ba Ugarte MD [facility] NEUROVASCULAR Final R esult documented in this encounter Visit Diagnoses Diagnosis Carotid bruit, unspecified laterality Carotid bruit, unspecified laterality documented in this encounter Additional Health Concerns Assessment Noted Time PHQ-2 Depression Total Score: 0 03/04/20 16 9:33 AM EDT documented as of this encounter Care Teams Contract Accountant Relationship Specialty Start Date End Date Ba Ugarte MD [address] [place] [address] Dr M[place], [place] [address] PCP - General Internal Medicine 09/21/17 Mary Rush MD Historical LMR Provider 12/15/14 08/09/21 documented as of this encounter Additional Source Comments The information contained in this document represents components of the legal health record. It is not the complete legal health record.[facility]
--- OUTSIDE RECORDS SUMMARY | 2025-04-17 12:43 | XMS_ITS | Encounter Summary ---
Author Organization [facility] Address [address] [place] [address] Phone Care Team Providers Care Security Escort Name Role Phone Dale Bazan MD Primary Care Provider [phone] Mary Rush MD, Andrew Seth MD Primary Care Provider Encounter Details Date Type Department Care Team (Late Contact Info) Description 03/26/2016 Documentation [facility] Neurology at [address] [address] Jeevan Mujica [address] [place] [address] Social History Tobacco Use Types Packs/Day Years [...] 07/30/2025 9:00 AM EST Office Visit [facility] Neurology [address] [place] [address] Dilan Ugarte MD [address] [place] [address], [address] [place] [address] [email or web address] documented as of this encounter Visit Diagnoses Not on filedocumented in this encounter Additional Health Concerns Assessment Noted Time PHQ-2 Depression Total Score: 0 03/04/20 16 9:33 AM EDT documented as of this encounter Care Teams Security Escort Relationship Specialty Start Date End Date Dale Bazan MD [address] [place] [address] [place] [address] PCP - General 12/06/14 09/20/17 Ba Ugarte MD [address] [place] [address] [place] [address] PCP - General Internal Medicine 09/21/17 Mary Rush MD Historical LMR Provider 12/15/14 08/09/21 documented as of this encounter Additional Source Comments The information contained in this document represents components of the legal health record. It is not the complete legal health record.[facility]
--- OUTSIDE RECORDS SUMMARY | 2025-04-17 12:43 | XMS_ITS | Patient Health Record ---
Author Organization [facility] Address [address] [place] [address] Care Team Providers Care Service Desk Agent Name Role Phone Ba Ugarte MD Primary Care Provider Unavailab Viviana Briscoe Unavailable [phone] Reason For Referral No Information Medications Medication [...] Risk Notes Problem Stress fracture of foot (171362807) Stress fracture, left foot, subsequent encounter for fracture with delayed healing (M84.375G) Active confirmed Plan Of Treatment Pending Test Test Name Order Date X ray : Foot, left 3V 03/01/2018 X ray : Foot, left 3V 03/29/2018 Insurance Providers Payer Name Payer Address Payer Phone Subscriber Number Group Number Insured Name Patient Relationship to Insured Coverage Start Date Coverage End Date [facility] All Others [address] [place] [address] [phone] [id number] Nadia Antunez Self - patient is the insured [facility] All [facility] [address] [place] [address] [phone] [id number] Nadia Antunez Self - patient is the insured Medical (General) History Medical History History ICD Code Cholesterol Headaches Measles Mumps Chicken pox Surgical History Surgery Date(Month/Year) rotator cuff tear repair 09/2013 hernia 1998 08/1989 breast surgery 12/2013
--- OUTSIDE RECORDS SUMMARY | 2025-04-17 12:43 | XMS_ITS | Encounter Summary ---
Author Organization [facility] Address [address] [place] [address] Phone Care Team Providers Care Semiautomatic Taper Operator Name Role Phone Mary Rush MD Ba Ugarte MD Primary Care Provider [phone] Reason for Referral * MRI/CAT Scan - Closed Specialty Diagnoses / Procedures Referred By Contac t Referred To Contact Radiology Diagnoses Abnormal chest sounds Procedures CT Angio Chest Ba Ugarte MD [address] [place] [address] Dr CARO [address] [place], [place] [address], [place] [address] Phone: tel: fax: Referral ID Status Reason Start Date Expiration Date Visits Re quested Visits Authorized [id number] Closed 06/02/2019 06/01/2020 1 1 Encounter Details Date Type Department Care Team (Late st Contact Info) Description 06/02/2019 Ancillary Orders Virtual Department [address] [place] [address] Ba Ugarte MD [address] [place] [address] Dr [place] [id number] Abnormal chest sounds Social History Tobacco Use [...] Description 07/30/2025 9:00 AM EST Office Visit [facility] Neurology [address] [place] [address] Dilan Ugarte MD 22 [facility], 2nd [place] [address] [email or web address] documented as of this encounter Results * [...] spleen. No worrisome lesions identified in the [id number]. Bones: Some scoliosis and kyphosis noted. Trace [...] the spleen. No worrisomelesions identified in the [id number]. Bones: Some scoliosis and kyphosis noted. Trace [...] documented as of this encounter Care Teams Semiautomatic Taper Operator Relationship Specialty Start Date End Date Ba Ugarte MD [address] [place] [address] Dr [facility] [place] [address] PCP - General Internal Medicine 09/21/17 Mary Rush MD Historical LMR Provider 12/15/14 08/09/21 documented as of this encounter Additional Source Comments The information contained in this document represents components of the legal health record. It is not the complete legal health record.[facility]
--- OUTSIDE RECORDS SUMMARY | 2025-04-17 12:43 | XMS_ITS | Encounter Summary ---
Author Organization [facility] Address [address] [place] [address] Phone Care Team Providers Care Dye Padder Operator Name Role Phone Mary Rush MD, Andrew Seth MD Primary Care Provider [phone] Encounter Details Date Type Department Care Team (Late st Contact Info) Description 10/26/2018 Ancillary Orders Virtual Department [address] [place] [address] Satya Cantu MD [address] [place] [address], [address] [place] [address] [email or web address] Neck [email or web address] Social History Tobacco [...] 07/30/2025 9:00 AM EST Office Visit [facility] Neurology [address] [place] [address] Dilan Ugarte MD [address] [place] [address], 2nd [place] [address] [email or web address] Direct documented as of this encounter Results * [...] documented as of this encounter Care Teams Dye Padder Operator Relationship Specialty Start Date End Date Ba Ugarte MD [address] [place] [address] Dr [place]AV[place] [address] PCP - General Internal Medicine 09/21/17 Mary Rush MD Historical LMR Provider 12/15/14 08/09/21 documented as of this encounter Additional Source Comments The information contained in this document represents components of the legal health record. It is not the complete legal health record.[facility]
--- OUTSIDE RECORDS SUMMARY | 2025-04-17 12:43 | XMS_ITS | Encounter Summary ---
Author Organization [facility] Address [address] [place] [address] Phone Care Team Providers Care Measurement Psychologist Name Role Phone Mary Rush MD, Andrew Seth MD Primary Care Provider [phone] Encounter Details Date Type Department Care Team (Latest Contact Info) Description 09/21/2017 Transcribe Orders [facility] Laboratory [address] [place] [address] Jaqueline Shook ARNP Physical exam, pre-employment (Primary [...] 07/30/2025 9:00 AM EST Office Visit [facility] Neurology [address] [place] [address] Dilan Ugarte MD 22 [facility], 2nd [place] [address] documented as of this encounter Results * Varicella-zoster (VZV) antibody, IgG (09/21/2017 10:43 AM EST) Varicella Ab(s) Positive Positive [facility] Blood (Blood) 09/21/2017 10: 43 AM EST 09/21/2017 10:45 AM EST Jaqueline RENE NON CULTURE MICROBIOLOGY Fi nal Result Performing Organization Address [facility]/ZIP Co de Phone Number [address] [address] * Rubella antibody, IgG (09/21/2017 10:43 AM EST) Rubella Ab, IgG Positive Positive [facility] Blood (Blood) 09/21/2017 10: 43 AM EST 09/21/2017 10:45 AM EST Jaqueline RENE NON CULTURE MICROBIOLOGY Fi nal Result Performing Organization Address [facility] Co de Phone Number [address] [address] * Mumps antibody, IgG (09/21/2017 10:43 AM EST) MUMPS IGG AB Positive Positive [facility] Blood (Blood) 09/21/2017 10: 43 AM EST 09/21/2017 10:45 AM EST Jaqueline RENE NON CULTURE MICROBIOLOGY Fi nal Result Performing Organization Address [facility] Co de Phone Number [address] [address] * Measles antibody, IgM (09/21/2017 10:43 AM EST) MEASLES IGM AB Negative Negative [facility] Blood 09/21/2017 10:4 3 AM EST 09/21/2017 10:46 AM EST us Jaqueline A Shook CALL BOX WIRER NON CULTURE MICROBIOLOGY Fi nal Result [facility] [place] [address] documented in this encounter Visit Diagnoses Diagnosis Physical exam, pre-employment- Primary Health examination of defined subpopulation documented in this encounter Additional Health Concerns Assessment Noted Time PHQ-2 Depression Total Score: 0 03/04/20 16 9:33 AM EDT documented as of this encounter Care Teams Measurement Psychologist Relationship Specialty Start Date End Date Ba Ugarte MD [address] [place] [address] [address] [place] [address] PCP - General Internal Medicine 09/21/17 Mary Rush MD Historical LMR Provider 12/15/14 08/09/21 documented as of this encounter Additional Source Comments The information contained in this document represents components of the legal health record. It is not the complete legal health record.[facility]
--- OUTSIDE RECORDS SUMMARY | 2025-04-17 12:43 | XMS_ITS | Clinical Summary ---
Author Organization [facility] Address [address] [place], [place] [id number] Phone Care Team Providers Care Telephonic Nurse Case Manager Name Role Phone Ba Ugarte MD Primary Care Provider [phone] Allergies No known active allergies Medications atorvastatin [...] Description 01/25/2025 1:30 PM EDT Office Visit [facility] Neurology [address] [place] [address] Dilan Ugarte MD Intractable chronic migraine [...] Description 07/30/2025 9:00 AM EST [facility] [address] [place] [address] Dilan Ugarte MD 22 [facility], 2nd [place] [address] [email or web address] Health Maintenance Due Date Last Done Comments [...] topic Medical Devices Not on file Insurance [place] [address] MEDICARE REPLACEMENT [facility] MEDICARE REPLACEMENT [facility] MEDICARE REPLACEMENT MEDICARE REPLACEMENT Care Teams Telephonic Nurse Case Manager Relationship Specialty Start Date End Date Ba Ugarte MD [address] [place] [address] [place] [address] PCP - General Internal Medicine 09/21/17 Additional Source Comments The information contained in this document represents components of the legal health record. It is not the complete legal health record.[facility]
--- OUTSIDE RECORDS SUMMARY | 2025-04-17 12:43 | XMS_ITS | Encounter Summary ---
Author Organization [facility] Address [address] [place] [address] Phone Care Team Providers Care Superintendent Warehouse Name Role Phone Mary Rush MD, Andrew Seth MD Primary Care Provider [phone] Encounter Details Date Type Department Care Team (Latest Contact Info) Description 10/21/2018 Transcribe Orders [facility] Laboratory [address] [place] [address] Satya Cantu MD [address] [place] [address], [address] [place] [address] [email or web address] Other headache syndrome (Primary Dx) Social [...] Description 07/30/2025 9:00 AM EST Office Visit [facility] Neurology [address] [place] [address] Dilan Ugarte MD [address] [place] [address], 2nd [address] [place], [place] [phone] [email or web address] documented as of this encounter Results * LFTs (hepatic panel) (10/21/2018 10:34 AM EDT) ALKALINE PHOSPHATASE 42 39 - 117 U/L [facility] TOTAL BILIRUBIN 0.2 0.0 - 1.2 mg/dL [facility] Comment: Results from certain multiple myeloma patients may show a positive bias in recovery. Not all multiple myeloma patients show the bias and severity of the bias may vary between patients. In very rare cases, gammopathy, in particular type IgM (Waldenstrom's macroglobulinemia), may cause unreliable results. DIRECT BILIRUBIN <0.2 0 - 0.3 mg/dL [facility] Bilirubin (Indirect) NOT CALCULATED 0 - 1.5 mg/dL [facility] AST 29 0 - 37 U/L [facility] ALT 22 0 - 40 U/L [facility] TOTAL PROTEIN 6.7 6.5 - 8.0 g/dL [facility] ALBUMIN 4.1 3.9 - 4.8 g/dL [facility] GLOBULIN 2.6 1 - 4.8 g/dL [facility] A/G Ratio 1.58 1.00 - 4.80 RATIO [facility] Blood 10/21/2018 10:3 4 AM EDT 10/21/2018 10:37 AM EDT us Satya Cantu MD LAB BLOOD ORDERABLES Final R esult Performing Organization Address City/State/[facility] Co de Phone Number [address] [address] documented in this encounter Visit Diagnoses Diagnosis Other headache syndrome- Primary documented in this encounter Additional Health Concerns Assessment Noted Time PHQ-2 Depression Total Score: 0 03/04/20 16 9:33 AM EDT documented as of this encounter Care Teams Superintendent Warehouse Relationship Specialty Start Date End Date Ba Ugarte MD [address] [place] [address] [place] [address] PCP - General Internal Medicine 09/21/17 Mary Rush MD Historical LMR Provider 12/15/14 08/09/21 documented as of this encounter Additional Source Comments The information contained in this document represents components of the legal health record. It is not the complete legal health record.[facility]
--- OUTSIDE RECORDS SUMMARY | 2025-04-17 12:43 | XMS_ITS | Encounter Summary ---
Author Organization [facility] Address [address] [place] [address] Phone Care Team Providers Care Adult Services Librarian Name Role Phone Mary Rush MD, Andrew Seth MD Primary Care Provider [phone] Encounter Details Date Type Department Care Team (Late st Contact Info) Description 06/07/2019 Transcribe Orders [facility] Laboratory [address] [place] [address] Ba Ugarte MD [address] [place] [address] [address] Encounter for hydration prior to CT scan [...] Description 07/30/2025 9:00 AM EST Office Visit [facility] Neurology [address] [place] [address] Dilan Ugarte MD 22 [facility], 2nd [place] [address] [email or web address] documented as of this encounter Procedures Procedure Name Priority Date/Time Associated Diagnosis Comments CREATININE/EGFR Routine 06/07/2019 7:17 AM EST Encounter for hydration prior to CT scan High cholesterol BUN Routine 06/07/2019 7:17 AM EST Encounter for hydration prior to CT scan High cholesterol documented in this encounter Results * (ABNORMAL) Creatinine/eGFR (06/07/2019 7:17 AM EST) CREATININE <0.50(L) 0.5 - 1.5 mg/dL [facility] EGFR Not Done >59 mL/min/1.73 m2 [facility] Blood 06/07/2019 7:17 AM EST 06/07/2019 7:19 AM EST us Ba Ugarte MD LAB BLOOD ORDERABLES Final Result Performing Organization Address City/[facility]/ZIP Co de Phone Number [address] [address] * BUN (06/07/2019 7:17 AM EST) BUN 14 6 - 19 mg/dL [facility] Blood 06/07/2019 7:17 AM EST 06/07/2019 7:19 AM EST us Ba Ugarte MD LAB BLOOD ORDERABLES Final Result [address] [address] documented in this encounter Visit Diagnoses Diagnosis Encounter for hydration prior to CT scan- Primary High cholesterol Pure hypercholesterolemia documented in this encounter Additional Health Concerns Assessment Noted Time PHQ-2 Depression Total Score: 0 03/04/20 16 9:33 AM EDT documented as of this encounter Care Teams Adult Services Librarian Relationship Specialty Start Date End Date Ba Ugarte MD [address] [place] [address] [address] [place] [address] PCP - General Internal Medicine 09/21/17 Mary Rush MD Historical LMR Provider 12/15/14 08/09/21 documented as of this encounter Additional Source Comments The information contained in this document represents components of the legal health record. It is not the complete legal health record.[facility]
== END 2025-04-17 09:52 | disposition home or self-care (01) ==
LOC: HO.MAMMO 09:51
PROVIDERS: PCP Student in an Organized Health Care Education/Training Program; Visit Provider Student in an Organized Health Care Education/Training Program
DX: Z12.31 Encounter for screening mammogram for malignant neoplasm of breast (principal)
CPT/HCPCS: 77063; 77067

== ENCOUNTER → 2025-04-17 10:00 | Outpatient (BNV) | payer MEDICARE, SELFPAY | PROVIDERS: PCP Student in an Organized Health Care Education/Training Program; Visit Provider Internal Medicine | DX: Z12.31 Encounter for screening mammogram for malignant neoplasm of breast (principal) | CPT/HCPCS: 77063; 77067 ==

== ENCOUNTER 2025-04-24 06:29 | Outpatient (REF) | payer MEDICARE, SELFPAY ==
--- OUTSIDE RECORDS SUMMARY | 2025-04-24 06:32 | XMS_ITS | Encounter Summary ---
Author Organization [facility] Address [address] [place] [address] Phone Care Team Providers Care Neon Electrician Name Role Phone Dale Bazan MD Primary Care Provider Mary Rush MD, Andrew Seth MD Primary Care Provider [phone] Encounter Details Date Type Department Care Team (Late Contact Info) Description 03/26/2016 Documentation [facility] Neurology at [address] [address] Jeevan Mujica [address] [place] [address] Social History Tobacco Use Types Packs/Day Years [...] 07/30/2025 9:00 AM EST Office Visit [facility] Neurology [address] [place] [address] Dilan Ugarte MD [address] [place] [address], [address] [place] [address] [email or web address] documented as of this encounter Visit Diagnoses Not on filedocumented in this encounter Additional Health Concerns Assessment Noted Time PHQ-2 Depression Total Score: 0 03/04/20 16 9:33 AM EDT documented as of this encounter Care Teams Neon Electrician Relationship Specialty Start Date End Date Dale Bazan MD [address] [place] [address] Dr CARO [facility] [place] [address] PCP - General 12/06/14 09/20/17 Ba Ugarte MD [address] [place] [address] Dr CARO [facility] [place] [address] PCP - General Internal Medicine 09/21/17 Mary Rush MD Historical LMR Provider 12/15/14 08/09/21 documented as of this encounter Additional Source Comments The information contained in this document represents components of the legal health record. It is not the complete legal health record.[facility]
--- OUTSIDE RECORDS SUMMARY | 2025-04-24 06:32 | XMS_ITS | Encounter Summary ---
Author Organization [facility] Address [address] [place] [address] Phone Care Team Providers Care Voip Engineer Name Role Phone Mary Rush MD, Andrew Seth MD Primary Care Provider [phone] Encounter Details Date Type Department Care Team (Late st Contact Info) Description 08/24/2018 Ancillary Orders Virtual Department [address] [place] [address] Ba Ugarte MD [address] [place] [address] Carotid bruit, unspecified laterality Social History Tobacco [...] Visit [facility] Neurology [address] [place] [address] Dilan Ugarte MD 22 [facility], 2nd [place] [address] [email or web address] documented as of this encounter Results * [...] 100% stenosis. POS [id number] Ba Ugarte MD [facility] NEUROVASCULAR Final R esult documented in this encounter Visit Diagnoses Diagnosis Carotid bruit, unspecified laterality Carotid bruit, unspecified laterality documented in this encounter Additional Health Concerns Assessment Noted Time PHQ-2 Depression Total Score: 0 03/04/20 16 9:33 AM EDT documented as of this encounter Care Teams Voip Engineer Relationship Specialty Start Date End Date Ba Ugarte MD [address] [place] [address] Dr [place], [place] [address] PCP - General Internal Medicine 09/21/17 Mary Rush MD Historical LMR Provider 12/15/14 08/09/21 documented as of this encounter Additional Source Comments The information contained in this document represents components of the legal health record. It is not the complete legal health record.[facility]
--- OUTSIDE RECORDS SUMMARY | 2025-04-24 06:32 | XMS_ITS | Clinical Summary ---
Author Organization [facility] Address [address] [place], [place] [phone] Phone Care Team Providers Care Industrial Technologist Name Role Phone Ba Ugarte MD Primary Care Provider [phone] Allergies No known active allergies Medications atorvastatin [...] Description 01/25/2025 1:30 PM EDT Office Visit [facility] Neurology [address] [place] [address] Dilan Ugarte MD Intractable chronic migraine [...] Description 07/30/2025 9:00 AM EST [facility] [address] [place] [address] Dilan Ugarte MD 22 [facility], 2nd [place] [address] [email or web address] Health Maintenance Due Date Last Done Comments LIPID PANEL 1956 HEPATITIS C SCREENING 1974 MAMMOGRAM 1996 COLOGUARD 2001 COLONOSCOPY 2001 COLORECTAL CANCER SCREENING 2001 FIT TEST 2001 FOBT 2001 SIGMOIDOSCOPY 2001 VIRTUAL COLONOSCOPY 2001 RSV VACCINE (1 - Risk 60-74 years 1-dose series) 2016 DEPRESSION SCREENING 03/04/2017 03/04/2016 OSTEOPOROSIS SCREENING INITIAL (ONE-TIME) 2021 INFLUENZA VACCINE (#1) 2025 , 04/08/2022, 04/12/2021, Additional history exists COVID-19 VACCINE (2024- season) 2025 04/24/2023, 11/26/2022, 04/08/2022, Additional history exists Adult [...] topic Medical Devices Not on file [place] [address] [address] MEDICARE REPLACEMENT [facility] MEDICARE REPLACEMENT [facility] MEDICARE REPLACEMENT MEDICARE REPLACEMENT Care Teams Industrial Technologist Relationship Specialty Start Date End Date Ba Ugarte MD [address] [place] [address] [place] [address] PCP - General Internal Medicine 09/21/17 Additional Source Comments The information contained in this document represents components of the legal health record. It is not the complete legal health record.[facility]
--- OUTSIDE RECORDS SUMMARY | 2025-04-24 06:32 | XMS_ITS | Encounter Summary ---
Author Organization [facility] Address [address] [place] [address] Phone Care Team Providers Care Senior Solutions Workflow Consultant Name Role Phone Mary Rush MD, Andrew Seth MD Primary Care Provider [phone] Encounter Details Date Type Department Care Team (Latest Contact Info) Description 09/21/2017 Transcribe Orders [facility] Laboratory [address] [place] [address] Jaqueline Shook ARNP Physical exam, pre-employment (Primary [...] 07/30/2025 9:00 AM EST Office Visit [facility] Neurology [address] [place] [address] Dilan Ugarte MD 22 [facility], 2nd [place] [address] documented as of this encounter Results * Varicella-zoster (VZV) antibody, IgG (09/21/2017 10:43 AM EST) Varicella Ab(s) Positive Positive [facility] Blood (Blood) 09/21/2017 10: 43 AM EST 09/21/2017 10:45 AM EST Jaqueline RENE NON CULTURE MICROBIOLOGY Fi nal Result Performing Organization Address [facility]/ZIP Co de Phone Number [address] [address] * Rubella antibody, IgG (09/21/2017 10:43 AM EST) Rubella Ab, IgG Positive Positive [facility] Blood (Blood) 09/21/2017 10: 43 AM EST 09/21/2017 10:45 AM EST Jaqueline RENE NON CULTURE MICROBIOLOGY Fi nal Result Performing Organization Address [facility] Co de Phone Number [address] [address] * Mumps antibody, IgG (09/21/2017 10:43 AM EST) MUMPS IGG AB Positive Positive [facility] Blood (Blood) 09/21/2017 10: 43 AM EST 09/21/2017 10:45 AM EST Jaqueline RENE NON CULTURE MICROBIOLOGY Fi nal Result Performing Organization Address [facility] Co de Phone Number [address] [address] * Measles antibody, IgM (09/21/2017 10:43 AM EST) MEASLES IGM AB Negative Negative [facility]/[address] Blood 09/21/2017 10:4 3 AM EST 09/21/2017 10:46 AM EST us Jaqueline A Shook HAND BENDER NON CULTURE MICROBIOLOGY Fi nal Result [facility] [address] [place] [address] documented in this encounter Visit Diagnoses Diagnosis Physical exam, pre-employment- Primary Health examination of defined subpopulation documented in this encounter Additional Health Concerns Assessment Noted Time PHQ-2 Depression Total Score: 0 03/04/20 16 9:33 AM EDT documented as of this encounter Care Teams Senior Solutions Workflow Consultant Relationship Specialty Start Date End Date Ba Ugarte MD [address] [place] [address] [address] [place] [address] PCP - General Internal Medicine 09/21/17 Mary Rush MD Historical LMR Provider 12/15/14 08/09/21 documented as of this encounter Additional Source Comments The information contained in this document represents components of the legal health record. It is not the complete legal health record.[facility]
--- OUTSIDE RECORDS SUMMARY | 2025-04-24 06:33 | XMS_ITS | Patient Health Record ---
Author Organization [facility] Address [address] [place] [address] Care Team Providers Care Track Walker Name Role Phone Ba Ugarte MD Primary Care Provider Unavailab Viviana Briscoe Unavailable [phone] Reason For Referral No Information Medications Medication [...] Risk Notes Problem Stress fracture of foot ([id number]) Stress fracture, left foot, subsequent encounter for fracture with delayed healing (M84.375G) Active confirmed Plan Of Treatment Pending Test Test Name Order Date X ray : Foot, left 3V 03/01/2018 X ray : Foot, left 3V 03/29/2018 Insurance Providers Payer Name Payer Address Payer Phone Subscriber Number Group Number Insured Name Patient Relationship to Insured Coverage Start Date Coverage End Date [facility] All Others [address] [place] [address] [phone] [id number] Nadia Antnuez Self - patient is the insured [facility] All [facility] [address] [place] [address] [phone] [id number] Nadia Antunez Self - patient is the insured Medical (General) History Medical History History ICD Code Cholesterol Headaches Measles Mumps Chicken pox Surgical History Surgery Date(Month/Year) rotator cuff tear repair 09/2013 hernia 1998 08/1989 breast surgery 12/2013
--- OUTSIDE RECORDS SUMMARY | 2025-04-24 06:33 | XMS_ITS | Encounter Summary ---
Author Organization [facility] Address [address] [place] [address] Phone Care Team Providers Care Metal Flooring Installer Name Role Phone Mary Rush MD, Andrew Seth MD Primary Care Provider [phone] Encounter Details Date Type Department Care Team (Latest Contact Info) Description 10/21/2018 Transcribe Orders [facility] Laboratory [address] [place] [address] Satya Cantu MD [address] [place] [address], [address] [place] [address] [email or web address] Other headache syndrome (Primary Dx) Social [...] Description 07/30/2025 9:00 AM EST Office Visit [facility] Neurology [address] [place] [address] Dilan Ugarte MD [address] [place] [address], 2nd Floor [place], [place] [phone] [email or web address] documented as of this encounter Results * LFTs (hepatic panel) (10/21/2018 10:34 AM EDT) ALKALINE PHOSPHATASE 42 39 - 117 U/L [facility] TOTAL BILIRUBIN 0.2 0.0 - 1.2 mg/dL [facility] Comment: Results from certain multiple myeloma patients may show a positive bias in recovery. Not all multiple myeloma patients show the bias and severity of the bias may vary between patients. In very rare cases, gammopathy, in particular type IgM (Waldenstrom's macroglobulinemia), may cause unreliable results. DIRECT BILIRUBIN <0.2 0 - 0.3 mg/dL [facility] Bilirubin (Indirect) NOT CALCULATED 0 - 1.5 mg/dL [facility] AST 29 0 - 37 U/L [facility] ALT 22 0 - 40 U/L [facility] TOTAL PROTEIN 6.7 6.5 - 8.0 g/dL [facility] ALBUMIN 4.1 3.9 - 4.8 g/dL [facility] GLOBULIN 2.6 1 - 4.8 g/dL [facility] A/G Ratio 1.58 1.00 - 4.80 RATIO [facility] Blood 10/21/2018 10:3 4 AM EDT 10/21/2018 10:37 AM EDT us Satya Cantu MD LAB BLOOD ORDERABLES Final R esult Performing Organization Address City/State/[facility] Co de Phone Number [address] [address] documented in this encounter Visit Diagnoses Diagnosis Other headache syndrome- Primary documented in this encounter Additional Health Concerns Assessment Noted Time PHQ-2 Depression Total Score: 0 03/04/20 16 9:33 AM EDT documented as of this encounter Care Teams Metal Flooring Installer Relationship Specialty Start Date End Date Ba Ugarte MD [address] [place] [address] [place] [address] PCP - General Internal Medicine 09/21/17 Mary Rush MD Historical LMR Provider 12/15/14 08/09/21 documented as of this encounter Additional Source Comments The information contained in this document represents components of the legal health record. It is not the complete legal health record.[facility]
--- OUTSIDE RECORDS SUMMARY | 2025-04-24 06:33 | XMS_ITS | Encounter Summary ---
Author Organization [facility] Address [address] [place] [address] Phone Care Team Providers Care Electric Shipyard Operator Name Role Phone Mary Rush MD, Andrew Seth MD Primary Care Provider [phone] Encounter Details Date Type Department Care Team (Late st Contact Info) Description 10/26/2018 Ancillary Orders Virtual Department [address] [place] [address] Satya Cantu MD [address] [place] [address], [address] [place] [address] [email or web address] Neck pain Social History Tobacco Use Types [...] 07/30/2025 9:00 AM EST Office Visit [facility] Neurology [address] [place] [address] Dilan Ugarte MD [address] [place] [address], [address] [place] [address] [email or web address] documented as of this encounter Results * [...] documented as of this encounter Care Teams Electric Shipyard Operator Relationship Specialty Start Date End Date Ba Ugarte MD [address] [place] [address] Dr [place] [address] PCP - General Internal Medicine 09/21/17 Mary Rush MD Historical LMR Provider 12/15/14 08/09/21 documented as of this encounter Additional Source Comments The information contained in this document represents components of the legal health record. It is not the complete legal health record.[facility]
--- OUTSIDE RECORDS SUMMARY | 2025-04-24 06:33 | XMS_ITS | Encounter Summary ---
Author Organization [facility] Address [address] [place] [address] Phone Care Team Providers Care Lining Stuffer Name Role Phone Mary Rush MD Ba Ugarte MD Primary Care Provider [phone] Reason for Referral * MRI/CAT Scan - Closed Specialty Diagnoses / Procedures Referred By Contac t Referred To Contact Radiology Diagnoses Abnormal chest sounds Procedures CT Angio Chest Ba Ugarte MD [address] [place] [address] Dr CARO [address] [place], [place] [address], [place] [address] Phone: tel: fax: Referral ID Status Reason Start Date Expiration Date Visits Re quested Visits Authorized [id number] Closed 06/02/2019 06/01/2020 1 1 Encounter Details Date Type Department Care Team (Late st Contact Info) Description 06/02/2019 Ancillary Orders Virtual Department [address] [place] [address] Ba Ugarte MD [address] [place] [address] Dr [place] [phone] Abnormal chest sounds Social History Tobacco Use [...] Description 07/30/2025 9:00 AM EST Office Visit [facility] Neurology [address] [place] [address] Dilan Ugarte MD [address] [facility], 2nd [place] [address] [email or web address] documented as of this encounter Results * [...] spleen. No worrisome lesions identified in the [id number]. Bones: Some scoliosis and kyphosis noted. Trace [...] the spleen. No worrisomelesions identified in the [id number]. Bones: Some scoliosis and kyphosis noted. Trace [...] documented as of this encounter Care Teams Lining Stuffer Relationship Specialty Start Date End Date Ba Ugarte MD [address] [place] [address] [place] [address] PCP - General Internal Medicine 09/21/17 Mary Rush MD Historical LMR Provider 12/15/14 08/09/21 documented as of this encounter Additional Source Comments The information contained in this document represents components of the legal health record. It is not the complete legal health record.[facility]
--- OUTSIDE RECORDS SUMMARY | 2025-04-24 06:33 | XMS_ITS | Encounter Summary ---
Author Organization [facility] Address [address] [place] [address] Phone Care Team Providers Care Global Compensation Director Name Role Phone Mary Rush MD, Andrew Seth MD Primary Care Provider [phone] Encounter Details Date Type Department Care Team (Late st Contact Info) Description 06/07/2019 Transcribe Orders [facility] Laboratory [address] [place] [address] Ba Ugarte MD [address] [place] [address] [address] Encounter for hydration prior to CT scan [...] Description 07/30/2025 9:00 AM EST Office Visit [facility] Neurology [address] [place] [address] Dilan Ugarte MD 22 [facility], 2nd [place] [address] [email or web address] documented as of this encounter Procedures Procedure Name Priority Date/Time Associated Diagnosis Comments CREATININE/EGFR Routine 06/07/2019 7:17 AM EST Encounter for hydration prior to CT scan High cholesterol BUN Routine 06/07/2019 7:17 AM EST Encounter for hydration prior to CT scan High cholesterol documented in this encounter Results * (ABNORMAL) Creatinine/eGFR (06/07/2019 7:17 AM EST) CREATININE <0.50(L) 0.5 - 1.5 mg/dL [facility] EGFR Not Done >59 mL/min/1.73 m2 [facility] Blood 06/07/2019 7:17 AM EST 06/07/2019 7:19 AM EST us Ba Ugarte MD LAB BLOOD ORDERABLES Final Result Performing Organization Address City/[facility]/ZIP Co de Phone Number [address] [address] * BUN (06/07/2019 7:17 AM EST) BUN 14 6 - 19 mg/dL [facility] Blood 06/07/2019 7:17 AM EST 06/07/2019 7:19 AM EST us Ba Ugarte MD LAB BLOOD ORDERABLES Final Result [address] [address] documented in this encounter Visit Diagnoses Diagnosis Encounter for hydration prior to CT scan- Primary High cholesterol Pure hypercholesterolemia documented in this encounter Additional Health Concerns Assessment Noted Time PHQ-2 Depression Total Score: 0 03/04/20 16 9:33 AM EDT documented as of this encounter Care Teams Global Compensation Director Relationship Specialty Start Date End Date Ba Ugarte MD [address] [place] [address] [address] [place] [address] PCP - General Internal Medicine 09/21/17 Mary Rush MD Historical LMR Provider 12/15/14 08/09/21 documented as of this encounter Additional Source Comments The information contained in this document represents components of the legal health record. It is not the complete legal health record.[facility]
[2025-04-24 07:37] LABS: Hematocrit 36.0 % (37.0-47.0); Hemoglobin 11.8 g/dl (12.0-16.0); Mean Corpuscular Volume 89.6 fL (80.0-98.0); Platelet Count 324 X10*3/uL (160-400); Red Blood Count 4.02 X10*6/uL (4.20-5.50)
[2025-04-24 08:46] LABS: Chloride 109 mmol/L (96-108); Potassium 3.8 mmol/L (3.3-5.1); Sodium 141 mmol/L (135-145)
[2025-04-24 13:03] LABS: Syphilis Screen Nonreactive (Nonreactive)
[2025-04-24 14:18] LABS: HBS Num1 0.83 mIU/mL (0-7.99); HBc Num1 0.10 S/CO (0.00-0.79); HBsAGNum1 0.32 S/CO (0.00-0.99); HIV Num 1 0.05 S/CO (0.00-0.99); Hepatitis A Antibody IgM 0.47 Index (0-0.79); Hepatitis B Surface Antigen Negative (Negative); ~HepC Num1 0.11 S/CO (0.00-0.79); ~Hepatitis A Antibody IgM Nonreactive (Nonreactive); ~Hepatitis B Surface Antibody NONREACTIVE (Nonreactive); ~Hepatitis C Antibody Nonreactive (Nonreactive)
== END 2025-04-24 06:30 | disposition home or self-care (01) ==
LOC: HO.LAB 06:29
PROVIDERS: PCP Student in an Organized Health Care Education/Training Program; Visit Provider Student in an Organized Health Care Education/Training Program
DX: Z13.1 Encounter for screening for diabetes mellitus (principal); Z11.4 Encounter for screening for human immunodeficiency virus [HIV]; I10 Essential (primary) hypertension; E78.5 Hyperlipidemia, unspecified
CPT/HCPCS: 36415; 80053; 80061; 82306; 83036; 84443; 85025; 86704; 86706; 86709; 86780; 86803; 87340; 87389

== ENCOUNTER 2025-05-03 13:17 | Outpatient (AMB) | payer MEDICARE, SELFPAY ==
--- NOTE | 2025-05-03 13:16 | A.OFFPC_ITS ---
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 She reports an increased heart rate since the discontinuation of metoprolol, previously taken at 50 mg. The patient notes heart rates in the range of 112 to 114 beats per minute, which she finds concerning, preferring a heart rate under 100 beats per minute. Despite the tachycardia, she reports improvements in her episodes of lightheadedness and dizziness. The patient acknowledges no missed doses of midodrine, which she continues to take twice daily for hypotension. She indicates that while her hypotensive symptoms have improved with metoprolol cessation, she wants to manage the increased heart rate. The patient manages her migraines primarily with sumatriptan as needed and states a reduction in frequency of migraines following menopause. The patient also addresses her visit next week with a neurosurgeon about her scheduled back surgery, which may be postponed due to Medicare plan restrictions. Her plan does not cover care at the facility where the surgery is scheduled, so she considers seeking care at another facility to accommodate her current insurance plan. Medical History: - Tachycardia - Lightheadedness - Hypotension - Migraine Headaches - Hyperlipidemia Medications: - Midodrine 2.5 mg twice daily for hypot ension - Sumatriptan as needed for migraines - Atorvastatin for hyperlipidemia - Erenumab ([employer]) injection for migrain e prevention Diagnostic Results: - Labs: Hemoglobin 11.8 g/dL, slightly b elow normal range - Labs: Lymphocyte count 50%, elevated PFSH Medical History (Updated 05/03/25 @ 13:53 by Vincent Ghosh MD) Lightheadedness Tachycardia Hypotension Lymphocytosis Migraine Hyperlipidemia Hypertension History of inguinal hernia Surgical History (Updated 05/02/25 @ 15:56 by Susan Martínez) History of colonoscopy (~03/31/18) History of breast lump/mass excision (10/06/22) History of repair of right rotator cuff (2003) History of breast biopsy (2005) History of section (1989) Family History Father Non-Hodgkin lymphoma Social History Housing: House Alcohol intake: never Patient Tobacco Use Status: Never used Tobacco e-Cigarette/Vaping Use: Never Used service: No Current occupational status: retired Questionnaire Thrive Questionnaire Date Thrive assessed: 04/04/25 TRAY-7 AMB Questionnaire TRAY-7 Date TRAY - 7 assessed: 04/04/25 Source: Developed by Drs. Kermit Brown, Gudelia Mathias, Nate Medel and colleagues, with an educational cheli from [employer]. Review of Systems Const Details: - Cardiovascular: Reports increased heart rate, denies current dizziness or lightheadedness - Neurological: Reports less frequent migraines, denies current headache - Hematological: Denies symptoms associated with anemia All systems reviewed & are unremarkable except as reviewed in HPI and above Physical exam (Primary Care) Vital Signs: Last Vital Signs Temp 98.7 F 05/03/25 13:25 Pulse 90 05/03/25 13:25 Resp 16 05/03/25 13:25 BP 124/72 05/03/25 13:25 Pulse Ox 99 05/03/25 13:25 Oxygen Delivery Method Room Air 05/03/25 13:25 BMI result Body Mass Index 18.7 Tobacco/Smoking Status: Tobacco use Status Tobacco use date assessed 05/03/25 05/03/25 13:17 Patient Tobacco Use Status Never used Tobacco 05/03/25 13:17 e-Cigarette/Vaping Use Never Used 05/03/25 13:17 Thrive Assessment: Date of Thrive Assessment Date Thrive assessed 09/03/25 10/02/25 13:17 Const Other: General: Alert and oriented, Well nourished, No acute distress. Eye: Pupils are equal, round and reactive to light, Intact accommodation, Extraocular movements are intact, Normal conjunctiva, Vision unchanged. HENT: Normocephalic, Atraumatic, Tympanic membranes are clear, Normal hearing, Oral mucosa is moist, No pharyngeal erythema, Ear canals patent. Respiratory: Lungs CTA bilaterally, No wheeze, Respirations are non-labored. Cardiovascular: Regular rate, Regular rhythm, S1 auscultated, S2 auscultated, No murmur, Good pulses equal in all extremities, Normal peripheral perfusion, No edema. Gastrointestinal: Soft, Non-tender, Non-distended, Normal bowel sounds, No organomegaly. Musculoskeletal: Normal range of motion, Normal strength, No tenderness, No swelling, No deformity, Normal gait. Integumentary: Warm, Dry, [place], Intact. Neurologic: Alert, Oriented, Normal sensory, Normal motor function, No focal defects, Cranial Nerves II-XII are grossly intact, Normal deep tendon reflexes. Psychiatric: Cooperative, Appropriate mood & affect, Normal judgment. Coding Level of Care Code Est Pt Level 4 (64862) Complex EM visit Add On G2211 Diagnoses Tachycardia R00.0 Lightheadedness R42 Hypotension, unspecified hypotension type I95.9 Hypotension type: unspecified hypotension type Hyperlipidemia, unspecified hyperlipidemia type E78.5 Hyperlipidemia type: unspecified Lymphocytosis D72.820 Intractable migraine without status migrainosus, unspecified migraine type G43.919 Migraine type: unspecified Status migrainosus presence: without status migrainosus Intractability: intractable Assessment & Plan Assessment & Plan (1) Tachycardia: Comment: - Initiate metoprolol 12.5 mg twice daily, with an option to reduce to once daily if symptoms re-occur with metoprolol. - HR ranging from 118 to 90's - Discussed transitioning from long-acting to short-acting metoprolol to manage heart rate. Code(s): R00.0 - Tachycardia, unspecified Category: Medical (2) Lightheadedness: Comment: - Symptoms have improved since discontinuation of metoprolol; monitor closely for return of symptoms. Code(s): R42 - Dizziness and giddiness Category: Medical (3) Hypotension: Comment: - Continue midodrine 2.5 mg twice daily for management. Code(s): I95.9 - Hypotension, unspecified Category: Medical Qualifiers: Hypotension type: unspecified hypotension type Qualified Code(s): I95.9 - Hypotension, unspecified (4) Hyperlipidemia: Comment: - Continue atorvastatin. Assess cholesterol levels in subsequent visits for efficacy. Code(s): E78.5 - Hyperlipidemia, unspecified Category: Medical Qualifiers: Hyperlipidemia type: unspecified Qualified Code(s): E78.5 - Hyperlipidemia, unspecified (5) Lymphocytosis: Comment: - Plan for manual retesting of lymphocyte count for confirmation. - Monitor in conjunction with potential signs of infection or other hematological disorders Code(s): D72.820 - Lymphocytosis (symptomatic) Category: Medical (6) Migraine: Comment: - Continue sumatriptan as needed for acute relief. - Continue preventive measures with erenumab ([employer]). - Monitor for any change in migraine pattern or frequency. Code(s): G43.909 - Migraine, unspecified, not intractable, without status migrainosus Category: Medical Qualifiers: Migraine type: unspecified Status migrainosus presence: without status migrainosus Intractability: intractable Qualified Code(s): G43.919 - Migraine, unspecified, intractable, without status migrainosus Plan: Health Maintenance: - Monitor glucose levels due to borderline prediabetes (HbA1c 5.9%). - Continue monitoring cholesterol levels; currently well-managed with atorvastatin. Patient was informed and verbally consented to the use of an ambient scribe for clinic note documentation during this visit. Plan I addressed the patient's concern regarding increased heart rate following metoprolol cessation. We re-initiated metoprolol at a lower dose to manage tachycardia while ensuring her symptoms of dizziness and lightheadedness do not return. Careful dose adjustment was discussed to optimize heart rate control without compromising blood pressure management with midodrine. I reassured the patient of the effectiveness of her current migraine prevention and treatment strategies. We discussed manual retesting of elevated lymphocyte counts to rule out laboratory error or underlying conditions. She was counseled regarding potential insurance coverage issues for her neurosurgical procedure and alternative options. Orders: Orders Complete Blood Count Man Dif Today D72.820 - Lymphocytosis (symptomatic) Medications: New metoprolol tartrate 12.5 mg (1/2 x 25 mg) PO BID 90 tabs 0RF 90 days Patient Instructions: - Begin taking metoprolol 12.5 mg twice a day. - Continue all other medications as prescribed. - Schedule follow-up blood work as ordered for further evaluation. - Report any return of dizziness or significant changes in heart rate. - Monitor glucose intake and ensure a healthy diet to manage prediabetes risk.
[2025-05-03 13:25] VITALS: BP 124/72; PULSE 90; RESP 16; TEMP 37.1; O2SAT 99; BMI 18.7
--- OUTSIDE RECORDS SUMMARY | 2025-05-03 14:44 | XMS_ITS | Clinical Summary ---
Author Organization [facility] Address [address] [place], [place] [phone] Phone Care Team Providers Care Director Foundation Name Role Phone Ba Ugarte MD Primary [...] november 2013. Migraine 01/31/2013 Overview (09/22/2014): Migraine Immunizations Immunization Administration Dates Next Due COVID-19 [...] Description 07/30/2025 9:00 AM EST [facility] [address] [place] [address] Dilan Ugarte MD [address] [facility], [address] [place] [address] [email or web address] Health Maintenance Due Date Last Done Comments [...] topic Medical Devices Not on file Insurance [facility] MEDICARE REPLACEMENT [facility] MEDICARE REPLACEMENT [facility] MEDICARE REPLACEMENT [facility]PLACEMENT [facility] MEDICARE REPLACEMENT [facility] MEDICARE REPLACEMENT Care Teams Director Foundation Relationship Specialty Start Date End Date Ba Ugarte MD [address] [place] [address] [place] [address] PCP - General Internal Medicine 09/21/17 Additional Source Comments The information contained in this document represents components of the legal health record. It is not the complete legal health record.[facility]
--- OUTSIDE RECORDS SUMMARY | 2025-05-03 14:44 | XMS_ITS | Encounter Summary ---
Author Organization [facility] Address [address] [place] [address] Phone Care Team Providers Care Commercial Project Manager Name Role Phone Mary Rush MD, Andrew Seth MD Primary Care Provider [phone] Encounter Details Date Type Department Care Team (Late st Contact Info) Description 08/24/2018 Ancillary Orders Virtual Department [address] [place] [address] Ba Ugarte MD [address] [place] [address] Carotid bruit, unspecified laterality Social History Tobacco [...] Visit [facility] Neurology [address] [place] [address] Dilan Ugarte MD 22 [facility], 2nd [place] [address] [email or web address] documented as of this encounter Results * [...] 100% stenosis. POS [id number] Ba Ugarte MD [facility] NEUR[facility]ULAR Final R esult documented in this encounter Visit Diagnoses Diagnosis Carotid bruit, unspecified laterality Carotid bruit, unspecified laterality documented in this encounter Additional Health Concerns Assessment Noted Time PHQ-2 Depression Total Score: 0 03/04/20 16 9:33 AM EDT documented as of this encounter Care Teams Commercial Project Manager Relationship Specialty Start Date End Date Ba Ugarte MD [address] [place] [address] Dr [place], [place] [address] PCP - General Internal Medicine 09/21/17 Mary Rush MD Historical LMR Provider 12/15/14 08/09/21 documented as of this encounter Additional Source Comments The information contained in this document represents components of the legal health record. It is not the complete legal health record.[facility]
--- OUTSIDE RECORDS SUMMARY | 2025-05-03 14:45 | XMS_ITS | Encounter Summary ---
Author Organization [facility] Address [address] [place] [address] Phone Care Team Providers Care Robot Designer Name Role Phone Dale Bazan MD Primary Care Provider Mary Rush MD, Andrew Seth MD Primary Care Provider [phone] Encounter Details Date Type Department Care Team (Late Contact Info) Description 03/26/2016 Documentation [facility] Neurology at [address] [address] Jeevan Mujica [address] [place] [address] Social History Tobacco Use Types Packs/Day Years [...] 07/30/2025 9:00 AM EST Office Visit [facility] Neurology [address] [place] [address] Dilan Ugarte MD [address] [place] [address], [address] [place] [address] [email or web address] documented as of this encounter Visit Diagnoses Not on filedocumented in this encounter Additional Health Concerns Assessment Noted Time PHQ-2 Depression Total Score: 0 03/04/20 16 9:33 AM EDT documented as of this encounter Care Teams Robot Designer Relationship Specialty Start Date End Date Dale Bazan MD [address] [place] [address] Dr [place]O [place] [address] PCP - General 12/06/14 09/20/17 Ba Ugarte MD [address] [place] [address] Dr [place] [facility] [place] [address] PCP - General Internal Medicine 09/21/17 Mary Rush MD Historical LMR Provider 12/15/14 08/09/21 documented as of this encounter Additional Source Comments The information contained in this document represents components of the legal health record. It is not the complete legal health record.[facility]
--- OUTSIDE RECORDS SUMMARY | 2025-05-03 14:45 | XMS_ITS | Encounter Summary ---
Author Organization [facility] Address [address] [place] [address] Phone Care Team Providers Care Magnetometer Operator Name Role Phone Mary Rush MD, Andrew Seth MD Primary Care Provider [phone]- [phone] Encounter Details Date Type Department Care Team (Latest Contact Info) Description 09/21/2017 Transcribe Orders [facility] Laboratory [address] [place] [address] Jaqueline Shook ARNP Physical exam, pre-employment (Primary [...] 07/30/2025 9:00 AM EST Office Visit [facility] Neurology [address] [place] [address] Dilan Ugarte MD 22 [facility], 2nd [place] [address] documented as of this encounter Results * Varicella-zoster (VZV) antibody, IgG (09/21/2017 10:43 AM EST) Varicella Ab(s) Positive Positive [facility] Blood (Blood) 09/21/2017 10: 43 AM EST 09/21/2017 10:45 AM EST Jaqueline RENE NON CULTURE MICROBIOLOGY Fi nal Result Performing Organization Address [facility]/ZIP Co de Phone Number [address] [address] * Rubella antibody, IgG (09/21/2017 10:43 AM EST) Rubella Ab, IgG Positive Positive [facility] Blood (Blood) 09/21/2017 10: 43 AM EST 09/21/2017 10:45 AM EST Jaqueline RENE NON CULTURE MICROBIOLOGY Fi nal Result Performing Organization Address [facility] Co de Phone Number [address] [address] * Mumps antibody, IgG (09/21/2017 10:43 AM EST) MUMPS IGG AB Positive Positive [facility] Blood (Blood) 09/21/2017 10: 43 AM EST 09/21/2017 10:45 AM EST Jaqueline RENE NON CULTURE MICROBIOLOGY Fi nal Result Performing Organization Address [facility] Co de Phone Number [address] [address] * Measles antibody, IgM (09/21/2017 10:43 AM EST) MEASLES IGM AB Negative Negative [facility] Blood 09/21/2017 10:4 3 AM EST 09/21/2017 10:46 AM EST us Jaqueline A Shook ROLL COVERER NON CULTURE MICROBIOLOGY Fi nal Result [facility] [place] [address] documented in this encounter Visit Diagnoses Diagnosis Physical exam, pre-employment- Primary Health examination of defined subpopulation documented in this encounter Additional Health Concerns Assessment Noted Time PHQ-2 Depression Total Score: 0 03/04/20 16 9:33 AM EDT documented as of this encounter Care Teams Magnetometer Operator Relationship Specialty Start Date End Date Ba Ugarte MD [address] [place] [address] [address] [place] [address] PCP - General Internal Medicine 09/21/17 Mary Rush MD Historical LMR Provider 12/15/14 08/09/21 documented as of this encounter Additional Source Comments The information contained in this document represents components of the legal health record. It is not the complete legal health record.[facility]
--- OUTSIDE RECORDS SUMMARY | 2025-05-03 14:46 | XMS_ITS | Encounter Summary ---
Author Organization [facility] Address [address] [place] [address] Phone Care Team Providers Care Product Trainer Name Role Phone Mary Rush MD Ba Ugarte MD Primary Care Provider [phone] Reason for Referral * MRI/CAT Scan - Closed Specialty Diagnoses / Procedures Referred By Contac t Referred To Contact Radiology Diagnoses Abnormal chest sounds Procedures CT Angio Chest Ba Ugarte MD [address] [place] [address] Dr CARO [address] [place], [place] [address] [address] Phone: tel: fax: Referral ID Status Reason Start Date Expiration Date Visits Re quested Visits Authorized [id number] Closed 06/02/2019 06/01/2020 1 1 Encounter Details Date Type Department Care Team (Late st Contact Info) Description 06/02/2019 Ancillary Orders Virtual Department [address] [place] [address] Ba Ugarte MD [address] [place] [address] Dr MELISSA [place] [id number] Abnormal chest sounds Social History Tobacco Use [...] Description 07/30/2025 9:00 AM EST Office Visit [facility] Neurology [address] [place] [address] Dilan Ugarte MD 22 [facility], 2nd [place] [address] [email or web address] documented as of this encounter Results * [...] spleen. No worrisome lesions identified in the [id number]. Bones: Some scoliosis and kyphosis noted. Trace [...] the spleen. No worrisomelesions identified in the [id number]. Bones: Some scoliosis and kyphosis noted. Trace [...] documented as of this encounter Care Teams Product Trainer Relationship Specialty Start Date End Date Ba Ugarte MD [address] [place] [address] Dr [facility] [place] [address] PCP - General Internal Medicine 09/21/17 Mary Rush MD Historical LMR Provider 12/15/14 08/09/21 documented as of this encounter Additional Source Comments The information contained in this document represents components of the legal health record. It is not the complete legal health record.[facility]
--- OUTSIDE RECORDS SUMMARY | 2025-05-03 14:46 | XMS_ITS | Encounter Summary ---
Author Organization [facility] Address [address] [place] [address] Phone Care Team Providers Care School Attendance Secretary Name Role Phone Mary Rush MD, Andrew Seth MD Primary Care Provider [phone] Encounter Details Date Type Department Care Team (Late st Contact Info) Description 10/26/2018 Ancillary Orders Virtual Department 30 [place] [address] Satya Cantu MD [address] [place] [address], [address] [place] [address] [email or web address] Neck pain Social History Tobacco Use Types [...] 07/30/2025 9:00 AM EST Office Visit [facility] Neurology [address] [place] [address] Dilan Ugarte MD [address] [place] [address], 2nd [place] [address] documented as of this encounter Results * [...] documented as of this encounter Care Teams School Attendance Secretary Relationship Specialty Start Date End Date Ba Ugarte MD [address] [place] [address] Dr B[place]YOKEAVIS [address] PCP - General Internal Medicine 09/21/17 Mary Rush MD Historical LMR Provider 12/15/14 08/09/21 documented as of this encounter Additional Source Comments The information contained in this document represents components of the legal health record. It is not the complete legal health record.[facility]
--- OUTSIDE RECORDS SUMMARY | 2025-05-03 14:46 | XMS_ITS | Encounter Summary ---
Author Organization [facility] Address [address] [place] [address] Phone Care Team Providers Care Toll Patrolman Name Role Phone Mary Rush MD, Andrew Seth MD Primary Care Provider [phone] Encounter Details Date Type Department Care Team (Late st Contact Info) Description 06/07/2019 Transcribe Orders [facility] Laboratory [address] [place] [address] Ba Ugarte MD [address] [place] [address] [address] Encounter for hydration prior to CT scan [...] Description 07/30/2025 9:00 AM EST Office Visit [facility] Neurology [address] [place] [address] Dilan Ugarte MD 22 [facility], 2nd [place] [address] [email or web address] documented as of this encounter Procedures Procedure Name Priority Date/Time Associated Diagnosis Comments CREATININE/EGFR Routine 06/07/2019 7:17 AM EST Encounter for hydration prior to CT scan High cholesterol BUN Routine 06/07/2019 7:17 AM EST Encounter for hydration prior to CT scan High cholesterol documented in this encounter Results * (ABNORMAL) Creatinine/eGFR (06/07/2019 7:17 AM EST) CREATININE <0.50(L) 0.5 - 1.5 mg/dL [facility] EGFR Not Done >59 mL/min/1.73 m2 [facility] Blood 06/07/2019 7:17 AM EST 06/07/2019 7:19 AM EST us Ba Ugarte MD LAB BLOOD ORDERABLES Final Result Performing Organization Address City/[facility]/ZIP Co de Phone Number [address] [address] * BUN (06/07/2019 7:17 AM EST) BUN 14 6 - 19 mg/dL [facility] Blood 06/07/2019 7:17 AM EST 06/07/2019 7:19 AM EST us Ba Ugarte MD LAB BLOOD ORDERABLES Final Result [address] [address] documented in this encounter Visit Diagnoses Diagnosis Encounter for hydration prior to CT scan- Primary High cholesterol Pure hypercholesterolemia documented in this encounter Additional Health Concerns Assessment Noted Time PHQ-2 Depression Total Score: 0 03/04/20 16 9:33 AM EDT documented as of this encounter Care Teams Toll Patrolman Relationship Specialty Start Date End Date Ba Ugarte MD [address] [place] [address] Dr [place] [address] PCP - General Internal Medicine 09/21/17 Mary Rush MD Historical LMR Provider 12/15/14 08/09/21 documented as of this encounter Additional Source Comments The information contained in this document represents components of the legal health record. It is not the complete legal health record.[facility]
--- OUTSIDE RECORDS SUMMARY | 2025-05-03 14:46 | XMS_ITS | Encounter Summary ---
Author Organization [facility] Address [address] [place] [address] Phone Care Team Providers Care Seismic Prospecting Supervisor Name Role Phone Mary Rush MD, Andrew Seth MD Primary Care Provider [phone] Encounter Details Date Type Department Care Team (Latest Contact Info) Description 10/21/2018 Transcribe Orders [facility] Laboratory [address] [place] [address] Satya Cantu MD [address] [place] [address], [address] [place] [address] [email or web address] Other headache syndrome [...] Description 07/30/2025 9:00 AM EST Office Visit [facility] Neurology [address] [place] [address] Dilan Ugarte MD [address] [place] [address], 2nd [address] [place], [place] [address] [email or web address] documented as of this encounter Results * LFTs (hepatic panel) (10/21/2018 10:34 AM EDT) ALKALINE PHOSPHATASE 42 39 - 117 U/L [facility] TOTAL BILIRUBIN 0.2 0.0 - 1.2 mg/dL [facility] Comment: Results from certain multiple myeloma patients may show a positive bias in recovery. Not all multiple myeloma patients show the bias and severity of the bias may vary between patients. In very rare cases, gammopathy, in particular type IgM (Waldenstrom's macroglobulinemia), may cause unreliable results. DIRECT BILIRUBIN <0.2 0 - 0.3 mg/dL [facility] Bilirubin (Indirect) NOT CALCULATED 0 - 1.5 mg/dL [facility] AST 29 0 - 37 U/L [facility] ALT 22 0 - 40 U/L [facility] TOTAL PROTEIN 6.7 6.5 - 8.0 g/dL [facility] ALBUMIN 4.1 3.9 - 4.8 g/dL [facility] GLOBULIN 2.6 1 - 4.8 g/dL [facility] A/G Ratio 1.58 1.00 - 4.80 RATIO [facility] Blood 10/21/2018 10:3 4 AM EDT 10/21/2018 10:37 AM EDT us Satya Cantu MD LAB BLOOD ORDERABLES Final R esult Performing Organization Address City/State/[place] Co de Phone Number [address] [address] documented in this encounter Visit Diagnoses Diagnosis Other headache syndrome- Primary documented in this encounter Additional Health Concerns Assessment Noted Time PHQ-2 Depression Total Score: 0 03/04/20 16 9:33 AM EDT documented as of this encounter Care Teams Seismic Prospecting Supervisor Relationship Specialty Start Date End Date Ba Ugarte MD [address] [place] [address] [place] [address] PCP - General Internal Medicine 09/21/17 Mary Rush MD Historical LMR Provider 12/15/14 08/09/21 documented as of this encounter Additional Source Comments The information contained in this document represents components of the legal health record. It is not the complete legal health record.[facility]
--- OUTSIDE RECORDS SUMMARY | 2025-05-03 14:46 | XMS_ITS | Patient Health Record ---
Author Organization [facility] Address [address] [place] [address] Care Team Providers Care C Software Developer Name Role Phone Ba Ugarte MD Primary Care Provider Unavailab Viviana Briscoe Unavailable [phone] Reason For Referral No Information Medications Medication [...] Risk Notes Problem Stress fracture of foot (139852554) Stress fracture, left foot, subsequent encounter for fracture with delayed healing (M84.375G) Active confirmed Plan Of Treatment Pending Test Test Name Order Date X ray : Foot, left 3V 03/01/2018 X ray : Foot, left 3V 03/29/2018 Insurance Providers Payer Name Payer Address Payer Phone Subscriber Number Group Number Insured Name Patient Relationship to Insured Coverage Start Date Coverage End Date [facility] All Others [address] [place] [address] [phone] [id number] Nadia Antunez Self - patient is the insured [facility] All [employer] [address] [place] [address] [phone] [id number] Nadia Antunez Self - patient is the insured Medical (General) History Medical History History ICD Code Cholesterol Headaches Measles Mumps Chicken pox Surgical History Surgery Date(Month/Year) rotator cuff tear repair 09/2013 hernia 1998 08/1989 breast surgery 12/2013
== END 2025-05-03 13:54 | disposition home or self-care (01) ==
PROVIDERS: PCP Student in an Organized Health Care Education/Training Program; Visit Provider Student in an Organized Health Care Education/Training Program
DX: R00.0 Tachycardia, unspecified (principal); R42 Dizziness and giddiness; I95.9 Hypotension, unspecified; E78.5 Hyperlipidemia, unspecified; D72.820 Lymphocytosis (symptomatic); G43.919 Migraine, unspecified, intractable, without status migrainosus

== ENCOUNTER → 2025-05-03 13:17 | Outpatient (BNVA) | payer MEDICARE, SELFPAY | PROVIDERS: PCP Family Medicine; Visit Provider Student in an Organized Health Care Education/Training Program | DX: R00.0 Tachycardia, unspecified (principal); R42 Dizziness and giddiness; I95.9 Hypotension, unspecified; E78.5 Hyperlipidemia, unspecified; D72.820 Lymphocytosis (symptomatic); G43.919 Migraine, unspecified, intractable, without status migrainosus; Z79.899 Other long term (current) drug therapy | CPT/HCPCS: 99212 ==

== ENCOUNTER 2025-05-15 13:41 | Outpatient (REF) | payer MEDICARE, SELFPAY ==
--- OUTSIDE RECORDS SUMMARY | 2025-05-15 16:37 | XMS_ITS | Clinical Summary ---
Author Organization [facility] Address [address] [place], [place] [phone] Phone Care Team Providers Care Voice And Data Technician Name Role Phone Ba Ugarte MD Primary [...] Description 07/30/2025 9:00 AM EST [facility] [address] [place] [address] Dilan Uagrte MD 22 [facility], 2nd [place] [address] [email or web address] Health Maintenance Due Date Last Done Comments LIPID PANEL 1956 HEPATITIS C SCREENING 1974 MAMMOGRAM 1996 COLOGUARD 2001 COLONOSCOPY 2001 COLORECTAL CANCER SCREENING 2001 FIT TEST 2001 FOBT 2001 SIGMOIDOSCOPY 2001 VIRTUAL COLONOSCOPY 2001 DEPRESSION SCREENING 03/04/2017 03/04/2016 OSTEOPOROSIS SCREENING INITIAL (ONE-TIME) 2021 INFLUENZA VACCINE (#1) 2025 , 04/08/2022, 04/12/2021, Additional history exists COVID-19 VACCINE (2024- season) 2025 04/24/2023, 11/26/2022, 04/08/2022, Additional history exists Adult Td,Tdap Booster 03/25/2029 03/25/2019 RSV VACCINE (1 - 1-dose 75+ series) 2031 SMOKING STATUS SCREENING (Once After 26 Yrs) [...] topic Medical Devices Not on file Insurance MEDICARE REPLACEMENT [facility] RE[facility] MEDIC[facility]PL[facility]EMENT [facility] MEDIC[facility] REPLACEMENT Care Teams Voice And Data Technician Relationship Specialty Start Date End Date Ba Ugarte MD [address] [place] [address] [place] [address] PCP - General Internal Medicine 09/21/17 Additional Source Comments The information contained in this document represents components of the legal health record. It is not the complete legal health record.[facility]
--- OUTSIDE RECORDS SUMMARY | 2025-05-15 16:37 | XMS_ITS | Encounter Summary ---
Author Organization [facility] Address [address] [place] [address] Phone Care Team Providers Care Sheet Metal Work Furnace Installer Name Role Phone Mary Rush MD, Andrew Seth MD Primary Care Provider [phone] Encounter Details Date Type Department Care Team (Late st Contact Info) Description 10/26/2018 Ancillary Orders Virtual Department [address] [place] [address] Satya Cantu MD [address] [place] [address], [address] [place] [address] [email or web address] Neck pain Social History Tobacco Use Types [...] 07/30/2025 9:00 AM EST Office Visit [facility] Neurology [address] [place] [address] Dilan Ugarte MD [address] [place] [address], 2nd [place] [address] [email or web address] documented as of this encounter Results * [...] documented as of this encounter Care Teams Sheet Metal Work Furnace Installer Relationship Specialty Start Date End Date Ba Ugarte MD [address] [place] [address] Dr BUIYOKEAVIS [address] PCP - General Internal Medicine 09/21/17 Mary Rush MD Historical LMR Provider 12/15/14 08/09/21 documented as of this encounter Additional Source Comments The information contained in this document represents components of the legal health record. It is not the complete legal health record.[facility]
--- OUTSIDE RECORDS SUMMARY | 2025-05-15 16:37 | XMS_ITS | Patient Health Record ---
Author Organization [facility] Address [address] [place] [address] Care Team Providers Care Cloud Engagement Partner Name Role Phone Ba Ugarte MD Primary Care Provider Unavailab Viviana Briscoe Unavailable [phone] Reason For Referral No Information Medications Medication [...] Risk Notes Problem Stress fracture of foot (565329212) Stress fracture, left foot, subsequent encounter for fracture with delayed healing (M84.375G) Active confirmed Plan Of Treatment Pending Test Test Name Order Date X ray : Foot, left 3V 03/01/2018 X ray : Foot, left 3V 03/29/2018 Insurance Providers Payer Name Payer Address Payer Phone Subscriber Number Group Number Insured Name Patient Relationship to Insured Coverage Start Date Coverage End Date [facility] All Others [address] [place] [address] [phone] [id number] Nadia Antunez Self - patient is the insured [facility] [address] [place] [address] [phone] [id number] Nadia Antunez Self - patient is the insured Medical (General) History Medical History History ICD Code Cholesterol Headaches Measles Mumps Chicken pox Surgical History Surgery Date(Month/Year) rotator cuff tear repair 09/2013 hernia 1998 08/1989 breast surgery 12/2013
--- OUTSIDE RECORDS SUMMARY | 2025-05-15 16:37 | XMS_ITS | Encounter Summary ---
Author Organization [facility] Address [address] [place] [address] Phone Care Team Providers Care Mirror Specialist Name Role Phone Mary Rush MD, Andrew Seth MD Primary Care Provider [phone] Encounter Details Date Type Department Care Team (Late st Contact Info) Description 06/07/2019 Transcribe Orders [facility] Laboratory [address] [place] [address] Ba Ugarte MD [address] [place] [address] [address] Encounter for hydration prior to CT scan [...] Description 07/30/2025 9:00 AM EST Office Visit [facility] Neurology [address] [place] [address] Dilan Ugarte MD 22 [facility], 2nd [place] [address] [email or web address] documented as of this encounter Procedures Procedure Name Priority Date/Time Associated Diagnosis Comments CREATININE/EGFR Routine 06/07/2019 7:17 AM EST Encounter for hydration prior to CT scan High cholesterol BUN Routine 06/07/2019 7:17 AM EST Encounter for hydration prior to CT scan High cholesterol documented in this encounter Results * (ABNORMAL) Creatinine/eGFR (06/07/2019 7:17 AM EST) CREATININE <0.50(L) 0.5 - 1.5 mg/dL [facility] EGFR Not Done >59 mL/min/1.73 m2 [facility] Blood 06/07/2019 7:17 AM EST 06/07/2019 7:19 AM EST us Ba Ugarte MD LAB BLOOD ORDERABLES Final Result Performing Organization Address City/[facility]/ZIP Co de Phone Number [address] [address] * BUN (06/07/2019 7:17 AM EST) BUN 14 6 - 19 mg/dL [facility] Blood 06/07/2019 7:17 AM EST 06/07/2019 7:19 AM EST us Ba Ugarte MD LAB BLOOD ORDERABLES Final Result [address] [address] documented in this encounter Visit Diagnoses Diagnosis Encounter for hydration prior to CT scan- Primary High cholesterol Pure hypercholesterolemia documented in this encounter Additional Health Concerns Assessment Noted Time PHQ-2 Depression Total Score: 0 03/04/20 16 9:33 AM EDT documented as of this encounter Care Teams Mirror Specialist Relationship Specialty Start Date End Date Ba Ugarte MD [address] [place] [address] Dr [place] [address] PCP - General Internal Medicine 09/21/17 Mary Rush MD Historical LMR Provider 12/15/14 08/09/21 documented as of this encounter Additional Source Comments The information contained in this document represents components of the legal health record. It is not the complete legal health record.[facility]
--- OUTSIDE RECORDS SUMMARY | 2025-05-15 16:37 | XMS_ITS | Encounter Summary ---
Author Organization [facility] Address [address] [place] [phone] Phone Care Team Providers Care Ship Erector Name Role Phone Mary Rush MD Ba Ugarte MD Primary Care Provider [phone] Reason for Referral * MRI/CAT Scan - Closed Specialty Diagnoses / Procedures Referred By Contac t Referred To Contact Radiology Diagnoses Abnormal chest sounds Procedures CT Angio Chest Ba Ugarte MD [address] [place] [address] Dr CARO [address] [place], [place] [address] [address] Phone: tel: fax: Referral ID Status Reason Start Date Expiration Date Visits Re quested Visits Authorized [id number] Closed 06/02/2019 06/01/2020 1 1 Encounter Details Date Type Department Care Team (Late st Contact Info) Description 06/02/2019 Ancillary Orders Virtual Department [address] [place] [address] Ba Ugarte MD [address] [place] [address] Dr [place] [phone] Abnormal chest sounds Social History Tobacco Use [...] Description 07/30/2025 9:00 AM EST Office Visit [facility] Neurology [address] [place] [address] Dilan Ugarte MD 22 [facility], 2nd [place] [address] [email or web address] documented as of this encounter Results * [...] spleen. No worrisome lesions identified in the [id number]. Bones: Some scoliosis and kyphosis noted. Trace [...] the spleen. No worrisomelesions identified in the [id number]. Bones: Some scoliosis and kyphosis noted. Trace [...] documented as of this encounter Care Teams Ship Erector Relationship Specialty Start Date End Date Ba Ugarte MD [address] [place] [address] [place] [address] PCP - General Internal Medicine 09/21/17 Mary Rush MD Historical LMR Provider 12/15/14 08/09/21 documented as of this encounter Additional Source Comments The information contained in this document represents components of the legal health record. It is not the complete legal health record.[facility]
--- OUTSIDE RECORDS SUMMARY | 2025-05-15 16:37 | XMS_ITS | Encounter Summary ---
Author Organization [facility] Address [address] [place] [address] Phone Care Team Providers Care Clinical Cytogenetics Director Name Role Phone Mary Rush MD, Andrew Seth MD Primary Care Provider [phone] Encounter Details Date Type Department Care Team (Late st Contact Info) Description 08/24/2018 Ancillary Orders Virtual Department [address] [place] [address] Ba Ugarte MD [address] [place] [address] Carotid bruit, unspecified laterality Social History Tobacco [...] 07/30/2025 9:00 AM EST Office Visit [facility] Neurology 22 [place] [address] Dilan Ugarte MD 22 [facility], 2nd [place] [address] [email or web address] documented as of this encounter Results * [...] 100% stenosis. POS [id number] Ba Ugarte MD [facility] NEUROVASCULAR Final R esult documented in this encounter Visit Diagnoses Diagnosis Carotid bruit, unspecified laterality Carotid bruit, unspecified laterality documented in this encounter Additional Health Concerns Assessment Noted Time PHQ-2 Depression Total Score: 0 03/04/20 16 9:33 AM EDT documented as of this encounter Care Teams Clinical Cytogenetics Director Relationship Specialty Start Date End Date Ba Ugarte MD [address] [place] [address] Dr [place], [place] [address] PCP - General Internal Medicine 09/21/17 Mary Rush MD Historical LMR Provider 12/15/14 08/09/21 documented as of this encounter Additional Source Comments The information contained in this document represents components of the legal health record. It is not the complete legal health record.[facility]
--- OUTSIDE RECORDS SUMMARY | 2025-05-15 16:37 | XMS_ITS | Encounter Summary ---
Author Organization [facility] Address [address] [place] [address] Phone Care Team Providers Care Clock Repair Technician Name Role Phone Mary Rush MD, Andrew Seth MD Primary Care Provider [phone] Encounter Details Date Type Department Care Team (Latest Contact Info) Description 10/21/2018 Transcribe Orders [facility] Laboratory [address] [place] [address] Satya Cantu MD [address] [place] [address], [address] [place] [address] [email or web address] Other headache syndrome [...] Description 07/30/2025 9:00 AM EST Office Visit [facility] Neurology [address] [place] [address] Dilan Ugarte MD [address] [place] [address], 2nd [address] [place], [place] [phone] [email or web address] documented as of this encounter Results * LFTs (hepatic panel) (10/21/2018 10:34 AM EDT) ALKALINE PHOSPHATASE 42 39 - 117 U/L [facility] TOTAL BILIRUBIN 0.2 0.0 - 1.2 mg/dL [facility] Comment: Results from certain multiple myeloma patients may show a positive bias in recovery. Not all multiple myeloma patients show the bias and severity of the bias may vary between patients. In very rare cases, gammopathy, in particular type IgM (Waldenstrom's macroglobulinemia), may cause unreliable results. DIRECT BILIRUBIN <0.2 0 - 0.3 mg/dL [facility] Bilirubin (Indirect) NOT CALCULATED 0 - 1.5 mg/dL [facility] AST 29 0 - 37 U/L [facility] ALT 22 0 - 40 U/L [facility] TOTAL PROTEIN 6.7 6.5 - 8.0 g/dL [facility] ALBUMIN 4.1 3.9 - 4.8 g/dL [facility] GLOBULIN 2.6 1 - 4.8 g/dL [facility] A/G Ratio 1.58 1.00 - 4.80 RATIO [facility] Blood 10/21/2018 10:3 4 AM EDT 10/21/2018 10:37 AM EDT us Satya Cantu MD LAB BLOOD ORDERABLES Final R esult Performing Organization Address City/State/[facility] Co de Phone Number [address] [address] documented in this encounter Visit Diagnoses Diagnosis Other headache syndrome- Primary documented in this encounter Additional Health Concerns Assessment Noted Time PHQ-2 Depression Total Score: 0 03/04/20 16 9:33 AM EDT documented as of this encounter Care Teams Clock Repair Technician Relationship Specialty Start Date End Date Ba Ugarte MD [address] [place] [address] [place] [address] PCP - General Internal Medicine 09/21/17 Mary Rush MD Historical LMR Provider 12/15/14 08/09/21 documented as of this encounter Additional Source Comments The information contained in this document represents components of the legal health record. It is not the complete legal health record.[facility]
--- OUTSIDE RECORDS SUMMARY | 2025-05-15 16:37 | XMS_ITS | Encounter Summary ---
Author Organization [facility] Address [address] [place] [address] Phone Care Team Providers Care Pulp Making Plant Operator Name Role Phone Mary Rush MD, Andrew Seth MD Primary Care Provider [phone] Encounter Details Date Type Department Care Team (Latest Contact Info) Description 09/21/2017 Transcribe Orders [facility] Laboratory [address] [place] [address] Jaqueline Shook ARNP Physical exam, pre-employment (Primary [...] 07/30/2025 9:00 AM EST Office Visit [facility] Neurology 22 [place] [address] Dilan Ugarte MD 22 [facility], 2nd [place] [address] documented as of this encounter Results * Varicella-zoster (VZV) antibody, IgG (09/21/2017 10:43 AM EST) Varicella Ab(s) Positive Positive [facility] Blood (Blood) 09/21/2017 10: 43 AM EST 09/21/2017 10:45 AM EST Jaqueline RENE NON CULTURE MICROBIOLOGY Fi nal Result Performing Organization Address [facility]/ZIP Co de Phone Number [address] [address] * Rubella antibody, IgG (09/21/2017 10:43 AM EST) Rubella Ab, IgG Positive Positive [facility] Blood (Blood) 09/21/2017 10: 43 AM EST 09/21/2017 10:45 AM EST Jaqueline RENE NON CULTURE MICROBIOLOGY Fi nal Result Performing Organization Address [facility] Co de Phone Number [address] [address] * Mumps antibody, IgG (09/21/2017 10:43 AM EST) MUMPS IGG AB Positive Positive [facility] Blood (Blood) 09/21/2017 10: 43 AM EST 09/21/2017 10:45 AM EST Jaqueline RENE NON CULTURE MICROBIOLOGY Fi nal Result Performing Organization Address [facility] Co de Phone Number [address] [address] * Measles antibody, IgM (09/21/2017 10:43 AM EST) MEASLES IGM AB Negative Negative [facility] Blood 09/21/2017 10:4 3 AM EST 09/21/2017 10:46 AM EST us Jaqueline A Shook COGNOS DEVELOPER NON CULTURE MICROBIOLOGY Fi nal Result [facility] [place] [address] documented in this encounter Visit Diagnoses Diagnosis Physical exam, pre-employment- Primary Health examination of defined subpopulation documented in this encounter Additional Health Concerns Assessment Noted Time PHQ-2 Depression Total Score: 0 03/04/20 16 9:33 AM EDT documented as of this encounter Care Teams Pulp Making Plant Operator Relationship Specialty Start Date End Date Ba Ugarte MD [address] [place] [address] [address] [place] [address] PCP - General Internal Medicine 09/21/17 Mary Rush MD Historical LMR Provider 12/15/14 08/09/21 documented as of this encounter Additional Source Comments The information contained in this document represents components of the legal health record. It is not the complete legal health record.[facility]
--- OUTSIDE RECORDS SUMMARY | 2025-05-15 16:37 | XMS_ITS | Encounter Summary ---
Author Organization [facility] Address [address] [place] [address] Phone Care Team Providers Care Maintenance Supervisor Mechanical Name Role Phone Dale Bazan MD Primary Care Provider [phone] Mary Rush MD, Andrew Seth MD Primary Care Provider Encounter Details Date Type Department Care Team (Late Contact Info) Description 03/26/[address] [facility] Neurology at [address] [address] Jeevan Mujica [address] [place] [address] Social History Tobacco Use Types Packs/Day Years [...] 07/30/2025 9:00 AM EST Office Visit [facility] Neurology [address] [place] [address] Dilan Ugarte MD [address] [place] [address], [address] [place] [address] [email or web address] documented as of this encounter Visit Diagnoses Not on filedocumented in this encounter Additional Health Concerns Assessment Noted Time PHQ-2 Depression Total Score: 0 03/04/20 16 9:33 AM EDT documented as of this encounter Care Teams Maintenance Supervisor Mechanical Relationship Specialty Start Date End Date Dale Bazan MD [address] [place] [address] Dr CARO [facility] [place] [address] PCP - General 12/06/14 09/20/17 Ba Ugarte MD [address] [place] [address] Dr CARO [facility] [place] [address] PCP - General Internal Medicine 09/21/17 Mary Rush MD Historical LMR Provider 12/15/14 08/09/21 documented as of this encounter Additional Source Comments The information contained in this document represents components of the legal health record. It is not the complete legal health record.[facility]
[2025-05-15 18:29] LABS: Baso%MD 1.2 %; Eos%MD 2.8 %; Hematocrit 34.5 % (37.0-47.0); Hemoglobin 11.6 g/dl (12.0-16.0); IG%MD 0.2 %; Lymph%MD 33.9 %; Mean Corpuscular HGB Conc 33.6 g/dl (31.0-35.0); Mean Corpuscular Hemoglobin 31.6 pg (27.0-33.0); Mean Corpuscular Volume 94.0 fL (80.0-98.0); Mono%MD 10.5 %; NRBC Abs Auto 0.000 X10*3/uL (0.0-0.012); NRBC Pct Auto 0.0 /100WBC (0.0-0.2); Neut%MD 51.4 %; Platelet Count 277 X10*3/uL (160-400); Red Blood Count 3.67 X10*6/uL (4.20-5.50); White Blood Count 6.0 X10*3/uL (4.8-10.8)
[2025-05-15 21:11] LABS: Basophils Abs Manual 0.1 X10*3/uL (0.0-0.2); Basophils Percent Manual 2 % (0-2); Eosinophils Absolute Manual 0.1 X10*3/uL (0.0-0.4); Eosinophils Percent Manual 2 % (0-4); Lymphocytes Absolute Manual 2.0 X10*3/uL (1.2-4.9); Lymphocytes Percent Manual 34 % (20-40); Monocytes Absolute Manual 0.5 X10*3/uL (0.1-1.2); Monocytes Percent Manual 8 % (2-11); Neutrophils Percent Manual 54 % (45-73)
[2025-05-15 21:12] LABS: Band Neutrophils Percent 0 % (3-5); Neutrophils Absolute Manual 3.2 X10*3/uL (2.0-8.3)
[2025-05-15 21:14] LABS: RBC Morphology NORMAL
== END 2025-05-15 13:42 | disposition home or self-care (01) ==
LOC: HO.HKASLDS 13:41
PROVIDERS: PCP Student in an Organized Health Care Education/Training Program; Visit Provider Student in an Organized Health Care Education/Training Program
DX: D72.820 Lymphocytosis (symptomatic) (principal)
CPT/HCPCS: 36415; 85007; 85027